=== PATIENT | male | born 1945 | race Caucasian/White ===

== ENCOUNTER 2021-11-20 06:36 | Inpatient (IN) | payer MEDICARE, SELFPAY ==
[2021-11-20] VITALS (53 sets, daily range): BP systolic 98–198; BP diastolic 51–120; PULSE 55–80; RESP 11–32; TEMP 36.9–37.2; O2SAT 85–100; BMI 37.0
--- NOTE | 2021-11-20 06:39 | ED_ITS ---
HPI - Abdominal Pain General: Chief Complaint: Abdominal Pain Stated Complaint: abd pain Time Seen by Provider: 11/20/21 06:38 History of Present Illness: Mr. Lowe is a 75-year-old gentleman without significant past medical Struve presents to the [facility] from due to abdominal discomfort. He has noticed abdominal distention for severe time however this has been worse over the past month. Additionally he had more pain since yesterday. Aching and cramping in quality. He does not associated nausea, vomiting, or diarrhea. Occasionally has some epigastric burning. He has had some urinary leaking which he has never had before. No low back pain, night sweats, saddle anesthesia, or loss of control of bowel. Overall course of symptoms has persisted. Intensity is moderate to severe. He does note high blood pressure than normal with no history of hypertension. No other specific changes in health, exacerbating, or alleviating factors identified. Onset (ago): day(s) Pain Consistency: constant Severity: moderate Quality: cramping and aching Associated Symptoms: Reports bloating Review of Systems General: Reports: 10 or more systems reviewed and unremarkable except in HPI and below GI: Reports: bloating [facility] ED PFSH: Medical History Hypertension Urinary retention Surgical History No significant past surgical history Social History Smoking and tobacco status: never smoked Physical Exam Const: COMMON NORMALS: alert GENERAL APPEARANCE: cooperative and well developed HENMT: COMMON NORMALS: normocephalic and atraumatic HEAD & SCALP: normocep halic and atraumatic Eye: COMMON NORMALS: conjunctivae normal CONJUNCTIVA: Yes conjunctivae normal SCLERA: sclerae normal Neck/C-Spine: COMMON NORMALS: supple GENERAL: Yes trachea midline Resp: COMMON NORMALS: normal respiratory effort and clear to auscultation bilaterally EFFORT & INSPECTION: Yes able to speak in complete sentences AUSCULTATION: clear to auscultation bilaterally Cardio: COMMON NORMALS: regular rate and regular rhythm RATE: regular rate RHYTHM: regular rhythm GI: COMMON NORMALS: Soft to palpation PALPATION: Yes Soft to palpation, Yes Tenderness to palpation present (GI), No Guarding due to palpation present (GI) and No Rigid due to palpation PERCUSSION: normal to percussion Extremity: GENERAL: Yes normal exam except as noted and No edema Neuro: COMMON NORMALS: moves all extremities SENSORIUM/ORIENTATION: Yes alert and No Orientation impaired Psych: COMMON NORMALS: mental status grossly normal and Normal thought process present THOUGHT PROCESS: Normal thought process present Course ED course: - Patient was seen and evaluated by me at bedside - Patient placed on cardiac monitors, IV access obtained - Initial evaluation notable for exam as above. Protuberant abdomen especially in the lower portion, some tenderness without evidence of peritonitis. - Labs personally interpreted by me - Analgesia ordered - Labs notable for mild leukocytosis, normocytic anemia. Metabolic panel notable for significant hyponatremia as well as elevated creatinine. No r eported history of similar. - Imaging notable for significant bladder distention with enlarged prostate. Additionally there is hydronephrosis. - Upon serial reexamination after treatment the patient was similar. Canela catheter placed with instruction to staff registered nurse to clamp after 1 L out with plan to cautiously treat bladder given likely longstanding etiology and theoretical risk of postobstructive diuresis - Based on patient history, evaluation, and testing as interpreted the most likely cause of the patient's condition is lateral obstruction with marked retention leading to renal dysfunction including hyponatremia and elevated creatinine with unclear baseline - The results of ED evaluation were discussed with the patient including plan for admission due to requirement for level of care not available if discharged to prevent significant worsening/deterioration. - Admitting service was contacted and Dr Gutierrez with the hospitalist service agreed to admit the patient - Patient was admitted without further deterioration or significant events. Note: Click bubbles or prepopulated valles in note writing are used for assistance with data collection and billing and are inherently more limited than narrative and other text portions of this note. Please use narrative for additional clini khadra history and defer to narrative/free test for any case of contradictory information. If information appears in only free text or click bubble it should be considered present or absent as reported. Please contact note writer technical publications for clarifications of clinical information or contradictory information. MDM is a brief summary, contradictory or erroneous seeming information should be clarified and full note should be reviewed. Vital Signs: Vital signs: Vital Signs Temperature 98.1 F 11/24/21 15:12 Pulse Rate 75 11/24/21 15:12 Respiratory Rate 18 11/24/21 15:12 Blood Pressure 156/73 11/24/21 15:12 Pulse Oximetry 95 11/24/21 15:12 MDM - Abdominal Pain Medical Decision Making 75-year-old gentleman with no reported history presenting with abdominal discomfort and generalized malaise. Patient found to have likely significant bladder outlet obstruction of unclear chronicity resulting in renal dysfunction and hyponatremia. Canela catheter placed with cautious drainage of markedly distended bladder. Admitted for evaluation and management. Medical Records I reviewed the patient's medical records. Lab Data I reviewed the patient's lab results. : 11/24/21 04:25 11/24/21 06:10 Labs/Radiology: Radiology Impressions Abdomen/Pelvis CT 11/20/21 07:22 IMPRESSION: 1. Marked bladder distension with mildly accentuated prostate gland size. Correlate for bladder outlet obstruction. 2. Prominent bilateral renal hydronephrosis and diffuse ureterectasis would be most likely etiology secondary to prolonged bladder distension. Other consideration could include a less likely coexistent bilateral distal ureteral obstruction. Consider reimaging with ultrasound following bladder evacuation. 3. Atherosclerosis abdominal aorta. 4. 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 5. Colonic diverticulosis. Chest CT 11/21/21 14:27 IMPRESSION: 1. Fat containing right-sided Bochdalek's hernia, unchanged from the prior CT scan. 2. Multivessel atherosclerotic disease which involves the coronary arteries. Head CT 11/21/21 14:27 IMPRESSION: No acute intracranial abnormality. Pelvis CT 11/22/21 08:45 IMPRESSION: 1. 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 There is no GI tract within this hernia. 2. Inguinal canals are patent bilaterally containing a small amount of fat but no GI tract. 3. Canela catheter is now present in the urinary bladder which is nondistended with bladder wall thickening and air. 4. Continued dilatation of the distal ureters with ureteral wall inflammation. Still cannot exclude obstruction at the UV junctions. Laboratory Results WBC 10.5 10^3/uL (4.0-10.0) H 11/20/21 07:21 RBC 3.58 10^6/uL (4.1-5.3) L 11/20/21 07:21 Hgb 11.0 g/dL (11.7-16.6) L 11/20/21 07:21 Hct 29.6 % (42.0-52.0) L 11/20/21 07:21 MCV 82.7 fl (80-94) 11/20/21 07:21 MCH 30.7 pg (28.0-34.0) 11/20/21 07:21 MCHC 37.2 g/dL (30.0-36.0) H 11/20/21 07:21 RDW 11.3 % (12.1-15.1) L 11/20/21 07:21 Plt Count 461 10^3/cmm (130-400) H 11/20/21 07:21 MPV 9.2 fL (7.4-10.4) 11/20/21 07:21 Neut % (Auto) 79.5 % 11/20/21 07:21 Lymph % (Auto) 12.6 % 11/20/21 07:21 [place] % (Auto) 6.2 % 11/20/21 07:21 Eos % (Auto) 0.8 % 11/20/21 07:21 Baso % (Auto) 0.2 % 11/20/21 07:21 Neut # (Auto) 8.36 10^3/uL (1.8-7.7) H 11/20/21 07:21 Lymph # (Auto) 1.3 10^3/uL (0.8-4.8) 11/20/21 07:21 [place] # (Auto) 0.7 10^3/uL (0.2-0.9) 11/20/21 07:21 Eos # (Auto) 0.1 10^3/uL (0.0-0.8) 11/20/21 07:21 Baso # (Auto) 0.0 10^3/uL (0.0-0.1) 11/20/21 07:21 Nucleated RBC % (auto) 0 % 11/20/21 07:21 Nucleated RBCs # 0.0 /100WBC 11/20/21 07:21 Sodium 114 mmol/L (136-145) L* 11/20/21 07:21 Potassium 3.4 mmol/L (3.5-5.1) L 11/20/21 07:21 Chloride 76 mmol/L (98-107) L 11/20/21 07:21 Carbon Dioxide 21 mmol/L (22-29) L 11/20/21 07:21 Anion Gap 20.4 (5-19) H 11/20/21 07:21 BUN 24 mg/dL (8-23) H 11/20/21 07:21 Creatinine 3.2 mg/dL (0.7-1.2) H 11/20/21 07:21 GFR Calculation Not Reportable 11/20/21 07:21 Glucose 135 mg/dL (65-115) H 11/20/21 07:21 Calculated Osmolality 244 mOsm/kg (285-295) L 11/20/21 07:21 Calcium 10.7 mg/dL (8.5-10.5) H 11/20/21 07:21 Phosphorus 4.6 mg/dL (2.5-4.5) H 11/20/21 07:21 Magnesium 2.0 mg/dL (1.7-2.3) 11/20/21 07:21 Total Bilirubin 0.5 mg/dL (0.15-1.2) 11/20/21 07:21 AST 15 U/L (0-40) 11/20/21 07:21 ALT 12 U/L (0-41) 11/20/21 07:21 Alkaline Phosphatase 77 IU/L (40-130) 11/20/21 07:21 Total Protein 7.1 g/dL (6.6-8.7) 11/20/21 07:21 Albumin 4.3 g/dL (3.5-5.2) 11/20/21 07:21 Globulin 2.8 g/dL (1.3-4.6) 11/20/21 07:21 Lipase 15 U/L (13-60) 11/20/21 07:21 Urine Color Yellow (Yellow) 11/20/21 10:10 Urine Appearance Clear (CLEAR) 11/20/21 10:10 Urine pH 7 (5-7) 11/20/21 10:10 Ur Specific [place] 1.005 (1.005-1.030) 11/20/21 10:10 Urine Protein Neg (Negative) 11/20/21 10:10 Urine Glucose (UA) Norm (Normal) 11/20/21 10:10 Urine Ketones Negative (Negative) 11/20/21 10:10 Urine Blood 2+ (Negative) H 11/20/21 10:10 Urine Nitrate Negative (Negative) 11/20/21 10:10 Urine Bilirubin Neg (Negative) 11/20/21 10:10 Urine Urobilinogen Norm mg/dL (Negative) 11/20/21 10:10 Ur Leukocyte Esterase 2+ (Negative) H 11/20/21 10:10 Urine RBC 0-4 /hpf (0-2) H 11/20/21 10:10 Urine WBC 5-10 /hpf (0-5) H 11/20/21 10:10 Ur Squamous Epith Cells 0-4 /hpf (0-5) H 11/20/21 10:10 Amorphous Sediment Not Reportable 11/20/21 10:10 Urine Bacteria 2+ /hpf (NONE) H 11/20/21 10:10 Critical Care Time Critical Care Time: Critical Care Time: Yes Total Critical Care Time: 35 Attestation: Due to a high probability of clinically significant, possibly life threatening deterioration, the patient required my highest level of attention and preparedness to intervene emergently and I personally spent this critical care time directly and personally managing the patient. This critical care time included obtaining a history; examining the patient; pulse oximetry; ordering and review of laboratory and imaging studies; arranging urgent treatment with development of a management plan; evaluation of patient's response to treatment; frequent reassessment; and, discussions with other providers as applicable. It was exclusive of separately billable procedures. 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
--- NOTE | 2021-11-20 07:22 | CTR_ITS ---
PROCEDURE INFORMATION: Exam: CT Abdomen And Pelvis Without Contrast Exam date and time: 11/20/2021 8:42 AM Age: 75 years old Clinical indication: Abdominal pain; Generalized; Additional info: Abd pain, n/v/urinary pain TECHNIQUE: Imaging protocol: Computed tomography of the abdomen and pelvis without contrast. Radiation optimization: All CT scans at this facility use at least one of these dose optimization techniques: automated exposure control; mA and/or kV adjustment per patient size (includes targeted exams where dose is matched to clinical indication); or iterative reconstruction. COMPARISON: No relevant prior studies available. RADIATION DOSE METRICS: Total DLP (mGy-cm): 1779.48 FINDINGS: Lungs: Minor linear stranding scarring or atelectasis lower lungs. Heart: Atherosclerotic calcification distribution of coronary arteries and proximal ascending aorta. Liver: Normal. No mass. Gallbladder and bile ducts: Normal. No calcified stones. No ductal dilation. Pancreas: Partial fatty replaced pancreatic parenchyma. Spleen: Normal. No splenomegaly. Granulomatous calcifications within the spleen. Adrenal glands: Normal. No mass. Kidneys and ureters: Marked bilateral renal hydronephrosis and ureterectasis diffusely to a level near the urinary bladder which could be on the basis of profound bladder distension versus coexistent distal ureteral obstruction bilaterally which is a less likely consideration. Stomach and bowel: Moderate colonic fecal debris. Colonic diverticulosis. Appendix: No evidence of appendicitis. Intraperitoneal space: Posterior right diaphragmatic defect with herniation of fatty omentum into the lower posterior right chest. Vasculature: Atherosclerotic calcification abdominal aorta. Lymph nodes: Unremarkable. No enlarged lymph nodes. Urinary bladder: Marked bladder distension with bladder diameter 23.2 by by 22.0 by 22.5 cm. Findings suggest bladder outlet obstruction. Reproductive: Questionable defect at the superior prostate gland. Correlate clinically for any prior intra prostate surgical change. Mildly prominent prostate gland size. Bones/joints: Degenerative change of the spine. Multilevel degenerative vacuum disc. Hardware right hip. Soft tissues: Bilateral inguinal hernias containing fatty omentum. CT/CT abdomen pelvis wo con [id number] IMPRESSION: 1. Marked bladder distension with mildly accentuated prostate gland size. Correlate for bladder outlet obstruction. 2. Prominent bilateral renal hydronephrosis and diffuse ureterectasis would be most likely etiology secondary to prolonged bladder distension. Other consideration could include a less likely coexistent bilateral distal ureteral obstruction. Consider reimaging with ultrasound following bladder evacuation. 3. Atherosclerosis abdominal aorta. 4. 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 5. Colonic diverticulosis.
--- NOTE | 2021-11-20 07:22 | ECG_ITS ---
[facility] Test Date: 2021-11-20 Pat Name: Neil Lowe Department: Room: Gender: Male Dolly Operator: : 1945 Requested By: Herbert Rosales Order Number: [id number] Prieto MD: Santiago Mcqueen M.D. Measurements Intervals [place] Rate: 58 P: 5 NC: 191 QRS: -47 QRSD: 198 T: 57 QT: 499 QTc: 493 Interpretive Statements SINUS BRADYCARDIA RIGHT BUNDLE BRANCH BLOCK [120+ ms QRS DURATION, UPRIGHT V1, 40+ ms S IN I/aVL/V4/V5/V6] LEFT ANTERIOR FASCICULAR BLOCK [QRS AXIS <= -45, QR IN I, RS IN II] No previous ECG available for comparison Electronically Signed On 11-21-2021 13:29:19 CDT by Santiago Mcqueen M.D. [email or web address]
[2021-11-20 07:25] LABS: Basophils % 0.2 %; Eosinophils # 0.1 10^3/uL (0.0-0.8); Eosinophils % 0.8 %; Hematocrit 29.6 % (42.0-52.0); Lymphocytes # 1.3 10^3/uL (0.8-4.8); Lymphocytes % 12.6 %; Mean Corpuscular HGB Conc 37.2 g/dL (30.0-36.0); Mean Corpuscular Hemoglobin 30.7 pg (28.0-34.0); Mean Corpuscular Volume 82.7 fl (80-94); Mean Platelet Volume 9.2 fL (7.4-10.4); Monocytes # 0.7 10^3/uL (0.2-0.9); Monocytes % 6.2 %; Neutrophils # 8.36 10^3/uL (1.8-7.7); Neutrophils % 79.5 %; Nucleated Red Blood Cells % 0 %; Platelet Count 461 10^3/cmm (130-400); Red Blood Count 3.58 10^6/uL (4.1-5.3); Red Cell Distribution Width 11.3 % (12.1-15.1); White Blood Count 10.5 10^3/uL (4.0-10.0)
[2021-11-20] MEDS: fentaNYL 50 mcg/mL INJ 2mL IVP (07:53)
[2021-11-20 07:57] LABS: Alanine Aminotransferase 12 U/L (0-41); Albumin Level 4.3 g/dL (3.5-5.2); Alkaline Phosphatase 77 IU/L (40-130); Anion Gap 20.4 (5-19); Aspartate Amino Transferase 15 U/L (0-40); Blood Urea Nitrogen 24 mg/dL (8-23); Calcium 10.7 mg/dL (8.5-10.5); Carbon Dioxide 21 mmol/L (22-29); Chloride 76 mmol/L (98-107); Globulin 2.8 g/dL (1.3-4.6); Glucose 135 mg/dL (65-115); Lipase 15 U/L (13-60); Osmolality Calculated 244 mOsm/kg (285-295); Potassium 3.4 mmol/L (3.5-5.1); Total Bilirubin 0.5 mg/dL (0.15-1.2); Total Protein 7.1 g/dL (6.6-8.7)
[2021-11-20 08:11] LABS: Sodium 114 mmol/L (136-145)
--- NOTE | 2021-11-20 08:12 | PC.NURSE ---
PHYSICIAN NOTIFIED OF CRITICAL LAB VALUE SODIUM 114. NO VERBAL ORDERS GIVEN AT THIS TIME.
[2021-11-20 10:50] LABS: Bilirubin Urine Neg (Negative); Blood Urine 2+ (Negative); Glucose Urine UA Norm (Normal); Ketones Urine Negative (Negative); Nitrate Urine Negative (Negative); Protein Urine Neg (Negative); Specific Gravity, Urine 1.005 (1.005-1.030); Urine Appearance Clear (CLEAR); Urine Color Yellow (Yellow); Urobilinogen Urine Norm (Negative); pH Urine 7 (5-7)
[2021-11-20 10:51] LABS: Add Urine Culture? Yes; Add Urine Microscopic? YES; Bacteria Urine 2+ /hpf; Leukocyte Esterase Urine 2+ (Negative); RBC Urine 0-4 /hpf (0-2); Squamous Epithelial Cell Urine 0-4 /hpf (0-5)
--- NOTE | 2021-11-20 11:43 | P.HP_ITS ---
Providers/Chief Complaint Admitting Physician: Dona Gutierrez MD Chief Complaint: abd pain History of Present Illness Neil Lowe is a 75 year old male with no significant past medical history presented to the hospital today with complaint of abdominal pain. He states about a month ago he has had progressively increasing difficulty with urination. Overnight he also experiencing urinary incontinence. At one point he also had burning pain in his epigastric region. The night before yesterday he also experienced chills. He says he has been worsening every day. He is also had a lot of belching. Otherwise does not complain of anything else. He also states that since Monday he has been constipated. He has not had a bowel movement. Normally he goes every day and has no issues. He has not seen a doctor in over 35 years but did see someone at an urgent clinic few years ago for an ear infection. He has no labs or checkups done in the recent past. Surgical history positive for congenital hip defect repair, knee surgery for leg length discrepancy. Unable to provide more details. Past medical history none Family history: Noncontributory Social history: Former smoker, quit 44 years ago, no alcohol or illicit drug use ER: On arrival significant labs hyponatremia 114, hypokalemia, WBC elevated 10.5, hemoglobin 11, urinalysis positive for leukocyte esterase and blood. CT abdomen pelvis done which showed marked bladder distention with mildly extenuated prostate gland size, prominent bilateral renal hydronephrosis and diffuse ureterectasis with the most likely etiology secondary to prolonged bladder distention posterior right diaphragmatic defect with herniation of fatty abdominal mesenteric contents, colonic diverticulosis. Matos catheter was placed and immediately 1 L was removed. Matos was then clamped and hospitalist was called for admission. Medications/Allergies Home Medications Medication Instructions Recorded Confirmed Last Taken Type naproxen sodium 220 mg tablet 220 mg PO Q12H PRN 11/20/21 11/20/21 Unknown History (Aleve) Allergies Allergy/AdvReac Type Severity Reaction Status Date / Time ketorolac [From Toradol] Allergy Intermediate ADR-Vomitin Verified 11/20/21 10:38 g Vitals/I&O/Wt Last Vital Signs Temp 98.5 F 11/20/21 06:57 Pulse 55 L 11/20/21 11:31 Resp 16 11/20/21 11:31 BP 168/78 11/20/21 11:31 Pulse Ox 98 06/25/22 11:31 Weight last 48 hrs Weight 127.459 kg Physical Exam Narrative: General: Alert oriented x3, patient seen sitting in bed appearing somewhat uncomfortable, Says we should unclamp matos and he has abdominal discomfort HEENT: Normocephalic, atraumatic, EOMI, breathing normally on room air Cardio: Regular rate rhythm, normal S1-S2, no murmurs Respiratory: Good bilateral air entry, no wheezes no rhonchi appreciated GI: Abdomen soft, mildly tender to palpation in pelvic region, non distended otherwise bowel sounds + Behavior: Appropriate and cooperative Extremities:Trace b/l LE edema, no cyanosis Urinary Catheter Management: Matos: Cath Placed During This Visit: yes Urinary Catheter Date of Insertion: 11/20/21 Urinary Catheter Time of Insertion: 10:28 Data : 11/21/21 10:10 11/21/21 13:03 A&P Assessment and plan (1) Bladder outflow obstruction: Status: Acute (2) SARAH (acute kidney injury): Status: Acute (3) Hyponatremia: Status: Acute (4) Hyperphosphatemia: Status: Acute (5) Anemia: Status: Acute (6) Hypertension: Status: Acute (7) High anion gap metabolic acidosis: Status: Acute (8) Leukocytosis: Status: Acute (9) Bilateral hydronephrosis: Status: Acute (10) Bladder distention: Status: Acute Plan #Bilateral renal hydronephrosis #Bladder outlet obstruction #Hyponatremia #Acute kidney injury, baseline unknown #Anemia #Leukocytosis #UTI #Hypertension #Hypokalemia #Anion gap metabolic acidosis most likely secondary to renal insult #Hyperphosphatemia - Start NS 50 cc/hr. COrrect Na slowly. NO more than 6-8 /24 hour period - Intermittent matos to avoid rapid diuresis - Check urine sodium, urine/serum osmo, urine creatinine, serum phosphorus - CT abd shows b/l hydronephrosis with bladder distention with suscpision of bladder outlet obstruction - start hydralazine 50 TID. HTN most likely 2/2 to pain and distress. No prior diagnosis but has also not seen a doc in years. - check hba1c, lipid profile - check ucx - continue zosyn to cover for UTI. - COnsult urology on Monday as Dr. Ward off over weekend - Consult nephrology. - Check iron studies to workup anemia - Replete potassium Full Code at bedside updated. Continue care in ICU DVT PPX: heparin subc Attestations Medical Necessity Statement*: Requires ICU level care for management of above. Expected to cross > 2 midnight stay. Coding Level of Care Code Acute Alterations Workroom Clerk for Chg Fwd Diagnoses Bladder outflow obstruction N32.0 SARAH (acute kidney injury) N17.9 Hyponatremia E87.1 Hyperphosphatemia E83.39 Anemia D64.9 Hypertension I10 High anion gap metabolic acidosis E87.2 Leukocytosis D72.829 Bilateral hydronephrosis N13.30 Bladder distention N32.89
[2021-11-20 12:06] LABS: Phosphorus 4.6 mg/dL (2.5-4.5)
[2021-11-20] MEDS: sodium chloride 0.9% 1,000 ML 50 ML IV (12:43)
[2021-11-20] MEDS: heparin 5,000 unit/mL INJ 1 mL 5000 UNIT SUBCUT ×2 (12:43→23:08)
--- NOTE | 2021-11-20 15:08 | P.CONIM_ITS ---
Providers/Reason For Consult Consulting Physician/Specialty*: Nephro Reason for Consult*: HypoNa and SARAH Attending Physician: Dnoa Gutierrez MD History of Present Illness History of Present Illness Thank for consultation, today had the pleasure of reviewing this very pleasant 75 old gentleman for evaluation of hyponatremia and acute kidney injury. He last saw Roughly 10 years ago, at which time he had wax in his right ear. No exposure to medical services since then. No historic labs on him. He happens to know Dr. Ward as Dr. Ward was the physician for his father. Over the last few months he has had progressively increasing difficulty with his urination. Last night he had 2 episodes of urinary incontinence. He passes urine roughly every hour with a weak stream. He did notice that his urine was odiferous and somewhat uncomfortable as well. On arrival he was found to have a serum creatinine of 3.2 and serum sodium 114. CT scan of the abdomen pelvis demonstrated severe bilateral hydronephrosis and a distended bladder. Canela catheter is now replaced, although it was initially murky, it is now clear. No overt hematuria. No known history of acute or chronic kidney disease, is never seen a kidney spe cialist or received hemodialysis. No history of an enlarged prostate and no history of urological procedures either. No history of hyponatremia, he still drinks normally although has been off his food lately. No history of heart disease, liver disease etc. Medications/Allergies Home Medications Medication Instructions Recorded Confirmed Last Taken Type naproxen sodium 220 mg tablet 220 mg PO Q12H PRN 11/20/21 11/20/21 Unknown History (Aleve) Allergies Allergy/AdvReac Type Severity Reaction Status Date / Time ketorolac [From Toradol] Allergy Intermediate ADR-Vomitin Verified 11/20/21 10:38 g Current Medications Generic Name Dose Route Start Last Admin Trade Name Freq PRN Reason Stop Dose Admin Heparin Sodium (Porcine) 5,000 unit 11/20/21 11:45 11/20/21 12:43 Heparin 5,000 Unit/Ml Inj 1 Ml SUBCUT 5,000 unit Q12H RAZA Administration Sodium Chloride 1,000 mls @ 50 mls/hr 11/20/21 11:30 11/20/21 12:43 Sodium Chloride 0.9% IV 50 mls/hr .Q20H RAZA Administration Vitals/I&O/Wt Last Vital Signs Temp 98.5 F 11/20/21 06:57 Pulse 57 L 11/20/21 12:25 Resp 30 H 11/20/21 12:25 BP 180/86 11/20/21 12:25 Pulse Ox 98 11/20/21 12:25 11/20/21 11/20/21 11/20/21 06:59 14:59 22:59 Output Total 2500 / 2500 Balance -2500 / -2500 Weight last 48 hrs Weight 127.459 kg Weight 127.459 kg Physical Exam Narrative: Constitutional: Awake, comfortable HEENT: Wet mucosa, no jvp, non icteric Lungs: Bilaterally clear without discernible wheeze or rales in all lung zones CVS: S1 S2, no murmurs Abdo: Soft, BS ok Ext 4: Minimal edema, peripheral perfusion with no cyanosis Neurological: Grossly non-focal Urinary Catheter Management: Canela: Cath Placed During This Visit: yes Urinary Catheter Date of Insertion: 11/20/21 Urinary Catheter Time of Insertion: 10:28 Data : 11/20/21 07:21 11/20/21 07:21 A&P Assessment and plan (1) SARAH (acute kidney injury): Status: Acute (2) Hyponatremia: Status: Acute (3) Bladder outflow obstruction: Status: Acute Plan 1. Acute kidney injury No diagnostic dilemma here, this is almost certainly secondary to acute obstructive uropathy. Stat BMP pending, as long as renal function is improving, no further work-up is required. Strict I's and O's Dose medication for GFR less than 15 Avoid usual nephrotoxic agents. 2. Hyponatremia and other aberrant chemistry Clinically euvolemic Likely secondary to renal failure Now that he is on blocked, with a robust urine output with what appears to be a auto diuresis it is likely he will correct quickly. Stat BMP pending Currently on gentle IV fluids Goal increase will be no more than 6 mmol/L in 24 hours i.e. roughly 120 at 7 AM tomorrow morning Will do sodium levels every 3-4 hours As long as sodium levels continue to improve no other diagnostic testing is required as there is no question of the diagnosis here. Low K, defer replacement until stat labs are available for review HyperCa, high intake of TUMs in addition to SARAH, monitor for now Mild acidosis, monitor for now 3. Obstructive uropathy Likely secondary to enlarged prostate Will get PSA Urology evaluation from Dr. Ward pending on Monday. Canela catheter in Defer definitive management to Dr. Ward. 4. Hypertension New diagnosis, he was unaware of any prior history of hypertension. Will give oral hydralazine 50 mg p.o. 3 times daily As his renal function improves and he continues to pee out a significant amount of salt or water is likely his blood pressure will come down as well. Close monitoring of hemodynamics Thank you for consultation, it is a pleasure to follow these cases with you Exam and interview performed with aid of bedside RN using telemedicine Time spent 20 min inc > 50% of time in face to face counseling Glynn Cheung MD [facility] [phone] Coding Level of Care Code Acute Retail Salesworker for Chg Fwd Diagnoses SARAH (acute kidney injury) N17.9 Hyponatremia E87.1 Bladder outflow obstruction N32.0
[2021-11-20 16:00] LABS: Blood Urea Nitrogen 24 mg/dL (8-23); Calcium 10.1 mg/dL (8.5-10.5); Carbon Dioxide 24 mmol/L (22-29); Chloride 77 mmol/L (98-107); Glucose 119 mg/dL (65-115); Osmolality Calculated 245 mOsm/kg (285-295)
[2021-11-20] MEDS: cefTRIAXone 1,000 MG in sodium chloride 0.9% (plus) 50 ML 100 MG IV (16:18)
[2021-11-20] MEDS: hyDRALAzine 50 mg Tablet PO ×2 (16:19→23:09)
[2021-11-20 16:26] LABS: Sodium 115 mmol/L (136-145)
[2021-11-20 16:27] LABS: Anion Gap 17.5 (5-19); Potassium 3.5 mmol/L (3.5-5.1)
[2021-11-20 20:31] LABS: Anion Gap 14.5 (5-19); Blood Urea Nitrogen 25 mg/dL (8-23); Calcium 9.6 mg/dL (8.5-10.5); Carbon Dioxide 24 mmol/L (22-29); Chloride 78 mmol/L (98-107); Glucose 111 mg/dL (65-115); Osmolality Calculated 241 mOsm/kg (285-295); Potassium 3.5 mmol/L (3.5-5.1)
[2021-11-20 20:44] LABS: Sodium 113 mmol/L (136-145)
[2021-11-21] VITALS (73 sets, daily range): BP systolic 90–161; BP diastolic 50–106; PULSE 48–96; RESP 9–33; TEMP 36.4; O2SAT 78–100
[2021-11-21 00:50] LABS: Anion Gap 16.2 (5-19); Blood Urea Nitrogen 26 mg/dL (8-23); Calcium 9.2 mg/dL (8.5-10.5); Carbon Dioxide 24 mmol/L (22-29); Chloride 77 mmol/L (98-107); Glucose 105 mg/dL (65-115); Osmolality Calculated 243 mOsm/kg (285-295); Potassium 3.2 mmol/L (3.5-5.1)
[2021-11-21 01:02] LABS: Sodium 114 mmol/L (136-145)
[2021-11-21 06:21] LABS: Alanine Aminotransferase 11 U/L (0-41); Albumin Level 3.7 g/dL (3.5-5.2); Alkaline Phosphatase 69 IU/L (40-130); Anion Gap 15.2 (5-19); Aspartate Amino Transferase 16 U/L (0-40); Blood Urea Nitrogen 25 mg/dL (8-23); Calcium 8.5 mg/dL (8.5-10.5); Carbon Dioxide 23 mmol/L (22-29); Chloride 78 mmol/L (98-107); Globulin 2.1 g/dL (1.3-4.6); Glucose 117 mg/dL (65-115); Osmolality Calculated 241 mOsm/kg (285-295); Potassium 3.2 mmol/L (3.5-5.1); Total Bilirubin 0.3 mg/dL (0.15-1.2); Total Protein 5.8 g/dL (6.6-8.7)
[2021-11-21 06:30] LABS: Sodium 113 mmol/L (136-145)
--- NOTE | 2021-11-21 06:40 | PC.NURSE ---
New Orders Received Spoke with Dr. Sterling regarding patient labs. Received telephone orders to increase NS to rate of 125 mls/hr from previous 50 mls/hr.
--- NOTE | 2021-11-21 07:00 | PC.NURSE ---
Shift Summary Patient had an uneventful shift he remains alert/oriented x4, on room air, no wounds or skin issues noted at this time. IVF are infusing per protocol, please see MAR for infusion rate. Canela catheter drained 2500 mls of urine overnight.
[2021-11-21 07:39] LABS: Urine Creatinine 29 mg/dL (39-259)
[2021-11-21 07:44] LABS: Urine Random Sodium 17 mmol/L
[2021-11-21] MEDS: sodium chloride 0.9% 1,000 ML 125 ML IV (07:52)
[2021-11-21] MEDS: hyDRALAzine 50 mg Tablet PO ×3 (08:07→20:17)
--- NOTE | 2021-11-21 08:24 | PM.PN ---
Subjective Subjective: feels better. drinking a lot of fluids. has edema. large diuresis. no valencia, n/v/f/c/valencia/d. Medications: Reviewed: Yes Medication Review Details: Current Medications Heparin Sodium (Porcine) (Heparin 5,000 Unit/Ml Inj 1 Ml) 5,000 unit SUBCUT Q12H [facility] Last Admin: 11/20/21 23:08 Dose: 5,000 unit Documented by: Hydralazine HCl (Hydralazine 50 Mg Tablet) 50 mg PO TID [facility] Last Admin: 11/21/21 08:07 Dose: 50 mg Documented by: Ceftriaxone Sodium 1,000 mg/ (Sodium Chloride) 50 mls @ 100 mls/hr IV Q24H [facility]; Protocol Sodium Chloride (Sodium Chloride 0.9%) 1,000 mls @ 125 mls/hr IV .Q8H [facility] Last Admin: 11/21/21 07:52 Dose: 125 mls/hr Documented by: Ondansetron HCl (Ondansetron 2 Mg/Ml Sdv 2 Ml) 4 mg IVP Q6H PRN PRN Reason: NAUSEA AND VOMITING Vitals/I&O/Wt Last Vital Signs Temp 97.6 F 11/21/21 04:00 Pulse 66 11/21/21 08:00 Resp 15 11/21/21 08:00 BP 161/106 11/21/21 08:00 Pulse Ox 96 11/21/21 08:00 11/20/21 11/21/21 11/21/21 22:59 06:59 14:59 Intake Total 1010 / 1010 3440 / 4450 480 / 480 Output Total 1250 / 3750 2500 / 6250 Balance -240 / -2740 940 / -1800 480 / 480 Weight last 48 hrs Weight 127.459 kg Weight 127.459 kg Physical Exam Narrative: comfortable sitting up, NARD vs noted- bp elevated heent- nc/at, eomi, anicteric neck supple lungs clear heart reg, no rub abd soft, nt, nd, + bs + matos ext 2+ edema neuro- a,a, o x 3 Urinary Catheter Management: Matos: Cath Placed During This Visit: yes Reason for Continuing Indwelling Catheter: Accurate Measurement of Urinary Output in Critically Ill Patients Urinary Catheter Date of Insertion: 11/20/21 Urinary Catheter Time of Insertion: 10:28 Data : 11/20/21 07:21 11/21/21 04:38 Micro: Microbiology 11/20/21 10:10 Urine Culture - Preliminary Urine,Clean Catch 11/20/21 15:00 Blood Culture - Preliminary Blood SPECIMEN COLLECTED 11/20/21 15:09 Blood Culture - Preliminary Blood SPECIMEN COLLECTED A&P Assessment and plan (1) SARAH (acute kidney injury): 75 yr old man 1. SARAH- from b/l hydronephrosis- likely was chtonic- will see how much renal recovery he will have -please have urology see pt -ua w/ 2+ blood -ct scan-Kidneys and ureters: Marked bilateral renal hydronephrosis and ureterectasis diffusely to a level near the urinary bladder which could be on the basis of profound bladder distension versus coexistent distal ureteral obstruction bilaterally which is a less likely consideration. 2. hyponatremia- from obstruction and high water intake. ur na ia 17- rec ns and free water restriction -monitor chem 7 , mag every 6 hrs 3. htn- add norvasc 2.5 mg po daily 4. hypokalemia - replete k and mag by po seen and examined w/ [facility]- telehealth visit time spent 30 min Status: Acute Plan see above Attestations Medical Necessity Statement*: severe electrolyte abnormalities Time Spent in Patient Care: 16 - 35 minutes (>than 50% of time spent in counselling and/or direct pt care on unit). Coding Level of Care Code Acute Architectural Wood Model Maker for Titus Parra Diagnoses SARAH (acute kidney injury) N17.9
[2021-11-21] MEDS: potassium chloride ER 20 mEq Tablet 40 MEQ PO ×3 (08:49→14:36)
[2021-11-21] MEDS: amlodipine 5 mg Tablet 2.5 MG PO (08:49)
[2021-11-21 09:03] LABS: Anion Gap 17.4 (5-19); Blood Urea Nitrogen 25 mg/dL (8-23); Calcium 8.7 mg/dL (8.5-10.5); Carbon Dioxide 23 mmol/L (22-29); Chloride 76 mmol/L (98-107); Glucose 111 mg/dL (65-115); Osmolality Calculated 241 mOsm/kg (285-295); Potassium 3.4 mmol/L (3.5-5.1)
[2021-11-21 09:16] LABS: Sodium 113 mmol/L (136-145)
[2021-11-21 10:18] LABS: Basophils % 0.2 %; Eosinophils # 0.1 10^3/uL (0.0-0.8); Eosinophils % 0.8 %; Hematocrit 26.2 % (42.0-52.0); Hemoglobin 9.7 g/dL (11.7-16.6); Lymphocytes # 1.4 10^3/uL (0.8-4.8); Lymphocytes % 12.5 %; Mean Corpuscular Hemoglobin 30.6 pg (28.0-34.0); Mean Corpuscular Volume 82.6 fl (80-94); Mean Platelet Volume 9.1 fL (7.4-10.4); Monocytes # 0.7 10^3/uL (0.2-0.9); Monocytes % 6.3 %; Neutrophils # 8.69 10^3/uL (1.8-7.7); Neutrophils % 79.7 %; Nucleated Red Blood Cells % 0 %; Platelet Count 370 10^3/cmm (130-400); Red Blood Count 3.17 10^6/uL (4.1-5.3); Red Cell Distribution Width 11.4 % (12.1-15.1); White Blood Count 10.9 10^3/uL (4.0-10.0)
[2021-11-21] MEDS: heparin 5,000 unit/mL INJ 1 mL 5000 UNIT SUBCUT (11:39)
[2021-11-21 13:48] LABS: Alanine Aminotransferase 10 U/L (0-41); Albumin Level 3.6 g/dL (3.5-5.2); Alkaline Phosphatase 71 IU/L (40-130); Anion Gap 18.1 (5-19); Aspartate Amino Transferase 15 U/L (0-40); Blood Urea Nitrogen 23 mg/dL (8-23); Calcium 8.2 mg/dL (8.5-10.5); Carbon Dioxide 20 mmol/L (22-29); Chloride 78 mmol/L (98-107); Globulin 2.6 g/dL (1.3-4.6); Glucose 127 mg/dL (65-115); Magnesium 1.7 mg/dL (1.7-2.3); Osmolality Calculated 241 mOsm/kg (285-295); Phosphorus 3.4 mg/dL (2.5-4.5); Potassium 3.1 mmol/L (3.5-5.1); Total Bilirubin 0.3 mg/dL (0.15-1.2); Total Protein 6.2 g/dL (6.6-8.7)
[2021-11-21 13:54] LABS: Sodium 113 mmol/L (136-145)
--- NOTE | 2021-11-21 14:23 | P.PN_ITS ---
Subjective Subjective: Seen this AM. 7L removed via matos total 2.5L overnight BP better Na still 113. Awaiting urology consult in AM Vitals/I&O/Wt Last Vital Signs Temp 97.6 F 11/21/21 04:00 Pulse 60 11/21/21 14:00 Resp 21 H 11/21/21 14:00 BP 133/68 11/21/21 12:00 Pulse Ox 96 11/21/21 12:00 11/20/21 11/21/21 11/21/21 22:59 06:59 14:59 Intake Total 1010 / 1010 3440 / 4450 1012 / 1012 Output Total 1250 / 3750 2500 / 6250 1825 / 1825 Balance -240 / -2740 940 / -1800 -813 / -813 Weight last 48 hrs Weight 127.459 kg Weight 127.459 kg Physical Exam Narrative: General: Alert oriented x3, patient seen sitting in recliner feeling better HEENT: Normocephalic, atraumatic, EOMI, breathing normally on room air Cardio: Regular rate rhythm, normal S1-S2, no murmurs Respiratory: Good bilateral air entry, no wheezes no rhonchi appreciated GI: Abdomen soft, non tender, non distended Behavior: Appropriate and cooperative Extremities:Trace b/l LE edema, no cyanosis Urinary Catheter Management: Matos: Cath Placed During This Visit: yes Reason for Continuing Indwelling Catheter: Accurate Measurement of Urinary Output in Critically Ill Patients Urinary Catheter Date of Insertion: 11/20/21 Urinary Catheter Time of Insertion: 10:28 Data : 11/21/21 10:10 11/21/21 13:03 Micro: Microbiology 11/20/21 10:10 Urine Culture - Preliminary Urine,Clean Catch 11/20/21 15:00 Blood Culture - Preliminary Blood SPECIMEN COLLECTED 11/20/21 15:09 Blood Culture - Preliminary Blood SPECIMEN COLLECTED A&P Assessment and plan (1) Bladder distention: Status: Acute (2) Bilateral hydronephrosis: Status: Acute (3) Leukocytosis: Status: Acute (4) High anion gap metabolic acidosis: Status: Acute (5) Hypertension: Status: Acute (6) Anemia: Status: Acute (7) Hyperphosphatemia: Status: Acute (8) Bladder outflow obstruction: Status: Acute (9) SARAH (acute kidney injury): Status: Acute (10) Hyponatremia: Status: Acute Plan #Bilateral renal hydronephrosis #Bladder outlet obstruction #Hyponatremia #Acute kidney injury, baseline unknown #Anemia #Leukocytosis #UTI #Hypertension #Hypokalemia #Anion gap metabolic acidosis most likely secondary to renal insult #Hyperphosphatemia - Continue on NS 125 cc/hr. COrrect Na slowly. NO more than 6-8 /24 hour period. Nephro following - Intermittent matos to avoid rapid diuresis - Check urine sodium, urine/serum osmo, urine creatinine, serum phosphorus - CT abd shows b/l hydronephrosis with bladder distention with suspicion of bladder outlet obstruction - Continue hydralazine 50 TID. HTN most likely 2/2 to pain and distress. No prior diagnosis but has also not seen a doc in years. - check hba1c, lipid profile - check ucx - continue ceftriaxone to cover for UTI. - COnsult urology on Monday as Dr. Ward off over weekend. Order placed. He needs to be notified in AM - Consult nephrology. - Check iron studies to workup anemia - Replete potassium - Check CT Chest and CT head to r/o intracranial or pulm pathology for hyponatremia. Full Code at bedside updated. Continue care in ICU DVT PPX: heparin subc Attestations Medical Necessity Statement*: Requires ICU level care for management of above. Expected to cross > 2 midnight stay. Coding Level of Care Code Acute Decision Support Analyst for Chg Fwd Diagnoses Bladder distention N32.89 Bilateral hydronephrosis N13.30 Leukocytosis D72.829 High anion gap metabolic acidosis E87.2 Hypertension I10 Anemia D64.9 Hyperphosphatemia E83.39 Bladder outflow obstruction N32.0 SARAH (acute kidney injury) N17.9 Hyponatremia E87.1
--- NOTE | 2021-11-21 14:27 | CTR_ITS ---
PROCEDURE INFORMATION: Exam: CT Head Without Contrast Exam date and time: 11/21/2021 3:41 PM Age: 75 years old Clinical indication: Other: Hyponatremia, R/O intracranial cause TECHNIQUE: Imaging protocol: Computed tomography of the head without contrast. Radiation optimization: All CT scans at this facility use at least one of these dose optimization techniques: automated exposure control; mA and/or kV adjustment per patient size (includes targeted exams where dose is matched to clinical indication); or iterative reconstruction. COMPARISON: No relevant prior studies available. RADIATION DOSE METRICS: Total DLP (mGy-cm): 808.43 FINDINGS: Brain: No hemorrhage. No edema. Mild diffuse cerebral atrophy and sequela of chronic small vessel ischemic disease. No mass effect. Cerebral ventricles: No ventriculomegaly. Paranasal sinuses: Visualized sinuses are unremarkable. No fluid levels. Mastoid air cells: Visualized mastoid air cells are well aerated. Bones/joints: Unremarkable. No acute fracture. Soft tissues: Unremarkable. CT/CT head wo con* [id number] IMPRESSION: No acute intracranial abnormality.
--- NOTE | 2021-11-21 14:27 | CTR_ITS ---
PROCEDURE INFORMATION: Exam: CT Chest Without Contrast; Diagnostic Exam date and time: 11/21/2021 3:44 PM Age: 75 years old Clinical indication: Other: R/O malignancy TECHNIQUE: Imaging protocol: Diagnostic computed tomography of the chest without contrast. Radiation optimization: All CT scans at this facility use at least one of these dose optimization techniques: automated exposure control; mA and/or kV adjustment per patient size (includes targeted exams where dose is matched to clinical indication); or iterative reconstruction. COMPARISON: CT abdomen pelvis wo con [id number] 11/20/2021 8:42 AM RADIATION DOSE METRICS: Total DLP (mGy-cm): 1111.01 FINDINGS: Lungs: There are pulmonary parenchymal calcifications consistent with remote granulomatous organism exposure. Streaky densities at the lung bases are most consistent with scarring and/or atelectasis. Pleural spaces: Unremarkable. No pneumothorax. No pleural effusion. Heart: Multivessel atherosclerotic disease which involves the coronary arteries. Lymph nodes: Unremarkable. No enlarged lymph nodes. Vasculature: Unremarkable. No aortic aneurysm. Pancreas: There is moderate to severe fatty atrophy of the pancreas. Kidneys and ureters: Partially visualized bilateral renal hydronephrosis/hydroureter was seen on the prior CT scan abdomen/pelvis dated 11/20/2021. Please see that report. Bones/joints: There are degenerative changes in the visualized spine. Soft tissues: Fat containing right-sided Bochdalek's hernia is unchanged from the prior exam. CT/CT chest wo con [id number] IMPRESSION: 1. Fat containing right-sided Bochdalek's hernia, unchanged from the prior CT scan. 2. Multivessel atherosclerotic disease which involves the coronary arteries.
[2021-11-21] MEDS: cefTRIAXone 1,000 MG in sodium chloride 0.9% (plus) 50 ML 100 MG IV (14:36)
[2021-11-21] MEDS: sodium chloride 1 gm Tablet PO ×2 (14:36→20:17)
--- NOTE | 2021-11-21 15:20 | ECG_ITS ---
[facility] Test Date: 2021-11-21 Pat Name: Neil Lowe Department: Room: [facility] Gender: Male Bolt Man: : 1945 Requested By: Dona Gutierrez Order Number: [id number] Prieto MD: Santiago Mcqueen M.D. Measurements Intervals [place] Rate: 59 P: 6 ND: 175 QRS: -53 QRSD: 182 T: 33 QT: 493 QTc: 492 Interpretive Statements SINUS BRADYCARDIA RIGHT BUNDLE BRANCH BLOCK [120+ ms QRS DURATION, UPRIGHT V1, 40+ ms S IN I/aVL/V4/V5/V6] LEFT ANTERIOR FASCICULAR BLOCK [QRS AXIS <= -45, QR IN I, RS IN II] Compared to ECG 11/20/2021 07:38:47 No significant changes Electronically Signed On 11-22-2021 17:37:32 CDT by Santiago Mcqueen M.D. [id number]
[2021-11-21] MEDS: sodium chloride 3% 500 ML 50 ML IV (15:52)
[2021-11-21 18:29] LABS: Alanine Aminotransferase 11 U/L (0-41); Alkaline Phosphatase 76 IU/L (40-130); Aspartate Amino Transferase 17 U/L (0-40); Blood Urea Nitrogen 23 mg/dL (8-23); Calcium 8.8 mg/dL (8.5-10.5); Carbon Dioxide 23 mmol/L (22-29); Chloride 81 mmol/L (98-107); Globulin 2.5 g/dL (1.3-4.6); Glucose 120 mg/dL (65-115); Magnesium 1.7 mg/dL (1.7-2.3); Osmolality Calculated 247 mOsm/kg (285-295); Phosphorus 3.4 mg/dL (2.5-4.5); Total Bilirubin 0.3 mg/dL (0.15-1.2); Total Protein 6.5 g/dL (6.6-8.7)
[2021-11-21 18:36] LABS: Sodium 116 mmol/L (136-145)
[2021-11-22] VITALS (39 sets, daily range): BP systolic 86–151; BP diastolic 48–91; PULSE 55–109; RESP 9–31; TEMP 36.1–37.1; O2SAT 95–100
[2021-11-22] MEDS: heparin 5,000 unit/mL INJ 1 mL 5000 UNIT SUBCUT ×2 (00:39→11:05)
[2021-11-22 01:20] LABS: Alanine Aminotransferase 11 U/L (0-41); Alkaline Phosphatase 73 IU/L (40-130); Anion Gap 16.7 (5-19); Aspartate Amino Transferase 16 U/L (0-40); Blood Urea Nitrogen 23 mg/dL (8-23); Calcium 8.7 mg/dL (8.5-10.5); Carbon Dioxide 20 mmol/L (22-29); Chloride 86 mmol/L (98-107); Globulin 2.6 g/dL (1.3-4.6); Glucose 101 mg/dL (65-115); Magnesium 1.8 mg/dL (1.7-2.3); Osmolality Calculated 252 mOsm/kg (285-295); Phosphorus 2.8 mg/dL (2.5-4.5); Potassium 3.7 mmol/L (3.5-5.1); Total Bilirubin 0.3 mg/dL (0.15-1.2); Total Protein 6.6 g/dL (6.6-8.7)
[2021-11-22 01:22] LABS: Troponin T (5th) Once 46 ng/L (0-15)
[2021-11-22 01:25] LABS: Sodium 119 mmol/L (136-145)
--- NOTE | 2021-11-22 01:36 | PC.NURSE ---
New Orders Received Called Dr. Redmond with lab results, received verbal orders to start 1/2 NS at 75 mls/hr.
[2021-11-22] MEDS: acetaminophen 325 mg Tablet 650 MG PO ×3 (01:57→20:09)
[2021-11-22] MEDS: sodium chloride 0.45% 1,000 ML 75 ML IV (01:59)
[2021-11-22 05:55] LABS: Alanine Aminotransferase 9 U/L (0-41); Albumin Level 3.7 g/dL (3.5-5.2); Alkaline Phosphatase 68 IU/L (40-130); Anion Gap 14.1 (5-19); Aspartate Amino Transferase 15 U/L (0-40); Blood Urea Nitrogen 22 mg/dL (8-23); Calcium 8.3 mg/dL (8.5-10.5); Carbon Dioxide 24 mmol/L (22-29); Chloride 88 mmol/L (98-107); Globulin 2.2 g/dL (1.3-4.6); Glucose 128 mg/dL (65-115); Magnesium 1.8 mg/dL (1.7-2.3); Osmolality Calculated 259 mOsm/kg (285-295); Phosphorus 2.9 mg/dL (2.5-4.5); Potassium 4.1 mmol/L (3.5-5.1); Sodium 122 mmol/L (136-145); Total Bilirubin 0.3 mg/dL (0.15-1.2); Total Protein 5.9 g/dL (6.6-8.7)
--- NOTE | 2021-11-22 07:19 | PM.PN ---
Subjective Subjective: feels well. no n/v/f/c/valencia/d/leg pians. Medications: Reviewed: Yes Medication Review Details: Current Medications Acetaminophen (Acetaminophen 325 Mg Tablet) 650 mg PO Q6H PRN PRN Reason: MILD PAIN Last Admin: 11/22/21 01:57 Dose: 650 mg Documented by: Amlodipine Besylate (Amlodipine 5 Mg Tablet) 2.5 mg PO DAILY [facility] Last Admin: 11/21/21 08:49 Dose: 2.5 mg Documented by: Heparin Sodium (Porcine) (Heparin 5,000 Unit/Ml Inj 1 Ml) 5,000 unit SUBCUT Q12H [facility] Last Admin: 11/22/21 00:39 Dose: 5,000 unit Documented by: Hydralazine HCl (Hydralazine 50 Mg Tablet) 50 mg PO TID [facility] Last Admin: 11/21/21 20:17 Dose: 50 mg Documented by: Ceftriaxone Sodium 1,000 mg/ (Sodium Chloride) 50 mls @ 100 mls/hr IV Q24H [facility]; Protocol Last Infusion: 11/21/21 15:06 Dose: Infused Documented by: Sodium Chloride (Sodium Chloride 0.45%) 1,000 mls @ 125 mls/hr IV .Q8H [facility] Last Infusion: 11/22/21 06:55 Dose: 125 mls/hr Documented by: Ondansetron HCl (Ondansetron 2 Mg/Ml Sdv 2 Ml) 4 mg IVP Q6H PRN PRN Reason: NAUSEA AND VOMITING Vitals/I&O/Wt Last Vital Signs Temp 97.0 F L 11/22/21 04:00 Pulse 60 11/22/21 06:30 Resp 20 H 11/22/21 06:30 BP 103/64 11/22/21 06:30 Pulse Ox 99 11/22/21 06:00 11/21/21 11/22/21 11/22/21 22:59 06:59 14:59 Intake Total 426.667 / 3319.917 370 / 3689.917 Output Total 1000 / 2825 1400 / 4225 Balance -573.333 / 494.917 -1030 / -535.083 Weight last 48 hrs Weight 127.459 kg Physical Exam Narrative: comfortable sitting up, NARD vs noted- and stable heent- nc/at, eomi, anicteric neck supple lungs clear heart reg, no rub abd soft, nt, nd, + bs + matos ext 2+ edema neuro- a,a, o x 3 Urinary Catheter Management: Matos: Cath Placed During This Visit: yes Reason for Continuing Indwelling Catheter: Accurate Measurement of Urinary Output in Critically Ill Patients Urinary Catheter Date of Insertion: 11/20/21 Urinary Catheter Time of Insertion: 10:28 Data : 11/21/21 10:10 11/22/21 04:40 Micro: Microbiology 11/20/21 10:10 Urine Culture - Final Urine,Clean Catch 11/20/21 15:00 Blood Culture - Preliminary Blood NEGATIVE TO DATE 11/20/21 15:09 Blood Culture - Preliminary Blood NEGATIVE TO DATE A&P Assessment and plan (1) SARAH (acute kidney injury): 75 yr old man 1. SARAH- from b/l hydronephrosis- likely was chtonic- will see how much renal recovery he will have -please have urology see pt -ua w/ 2+ blood -ct scan-Kidneys and ureters: Marked bilateral renal hydronephrosis and ureterectasis diffusely to a level near the urinary bladder which could be on the basis of profound bladder distension versus coexistent distal ureteral obstruction bilaterally which is a less likely consideration. 2. hyponatremia- from obstruction and high water intake. ur na was 17- rec ns and free water restriction -monitor chem 7 , mag every 6 hrs -pts sodium venita quickly- now on 1/2 ns 3. htn- dec meds 4. hypokalemia - replete k and mag as needed seen and examined w/ RN- telehealth visit time spent 30 min Status: Acute Plan see above Attestations Medical Necessity Statement*: improving hyponatremia SARAH -improved to CKD- stage to be determined Time Spent in Patient Care: 16 - 35 minutes (>than 50% of time spent in counselling and/or direct pt care on unit). Coding Level of Care Code Acute Sports Book Writer for Titus Parra Diagnoses SARAH (acute kidney injury) N17.9
--- NOTE | 2021-11-22 07:39 | PC.NURSE ---
Shift Summary Patient had an uneventful shift. Remains alert/oriented x4, on room air, no wounds noted at this time. Canela catheter drained 1400 mls of urine and patient had two bowel movements overnight. Reported discomfort in the back, shoulders and neck area-PRN Tylenol administered.
[2021-11-22] MEDS: hyDRALAzine 50 mg Tablet PO ×3 (07:59→20:09)
--- NOTE | 2021-11-22 08:45 | CT_ITS ---
WS: [id number] CT PELVIS WITHOUT HISTORY: large hernia hanging near thighs, need visual TECHNIQUE: Contiguous imaging is performed of the pelvis without contrast. Coronal and sagittal refor mats are reviewed. [facility] use at least one of these dose optimization stef hniques: automated exposure control; mA and/or kV adjustment per patient size (includes targeted exam s where dose is matched to clinical indication); or iterative reconstruction. DLP: 1615.89 mGy.cm COMPARISON: No similar studies. There is a large fatty mass extending inferior from the LEFT inguinal region. This fatty mass begins just medial to the LEFT gracilis muscle and adductor muscles. Mass extends over length of 17 cm along the medial LEFT femur and transversely by 10.7 cm. This mass appears just lateral to the inguinal re gion and scrotal sac and extends along the medial LEFT thigh. There is displacement of the scrotum an d scrotal contents to the RIGHT. There are some just very minimal stranding which may be edema along the medial fatty tumor. No similar finding on the RIGHT. Inguinal canals are patent bilaterally containing fat only. There is no herniation of GI tract along the inguinal canals are into the medial LEFT thigh fatty tumor. Since the prior examination catheter has been placed in the urinary bladder. Bladder is collapsed and is bladder wall thickening with air in the bladder along with a Canela catheter and prostate gland en largement. Mild presacral soft tissue thickening and stranding of the soft tissues of the pelvis. Mil d constipation. No free air is identified. There is continued mild bilateral ureteral dilatation invo lving the distal ureters. Small lipoma adjacent to the LEFT hip. Prior RIGHT hip orthopedic fixation. Partial fusion of the SI joints. Osteopenia. CT/CT pelvis wo con [id number] IMPRESSION: 1. The large soft tissue mass seen on physical exam close to the scrotal sac a ppears to be a fatty tumor extending along the medial LEFT thigh, just medial t o the gracilis muscle measuring 17 cm in length by 10.7 cm transversely. There is no GI tract within this hernia. 2. Inguinal canals are patent bilaterally containing a small amount of fat but no GI tract. 3. Canela catheter is now present in the urinary bladder which is nondistended with bladder wall thickening and air. 4. Continued dilatation of the distal ureters with ureteral wall inflammation. Still cannot exclude obstruction at the UV junctions.
[2021-11-22 10:04] LABS: Basophils # 0.1 10^3/uL (0.0-0.1); Basophils % 0.5 %; Eosinophils # 0.1 10^3/uL (0.0-0.8); Eosinophils % 0.9 %; Hematocrit 29.6 % (42.0-52.0); Hemoglobin 10.5 g/dL (11.7-16.6); Lymphocytes # 1.3 10^3/uL (0.8-4.8); Lymphocytes % 12.5 %; Mean Corpuscular HGB Conc 35.5 g/dL (30.0-36.0); Mean Corpuscular Hemoglobin 30.1 pg (28.0-34.0); Mean Corpuscular Volume 84.8 fl (80-94); Mean Platelet Volume 9.2 fL (7.4-10.4); Monocytes # 0.7 10^3/uL (0.2-0.9); Monocytes % 6.4 %; Neutrophils # 8.25 10^3/uL (1.8-7.7); Neutrophils % 78.9 %; Nucleated Red Blood Cells % 0 %; Platelet Count 403 10^3/cmm (130-400); Red Blood Count 3.49 10^6/uL (4.1-5.3); Red Cell Distribution Width 11.9 % (12.1-15.1); White Blood Count 10.5 10^3/uL (4.0-10.0)
--- NOTE | 2021-11-22 10:14 | PC.CHAP ---
Pastoral Care Encounter/Spiritual Assessment Type of Contact [] Declined appeals manager visit [] Patient/Family/Request visit [] Outpatient visit [] Follow-up visit [] Physician referral [] Code/Alert [x] Routine visit [] Staff referral [] Actively dying [] Patient sleeping [] Family support [] [x] Out of room [] Palliative care [] [] Receiving care in room [] Pre-surgical visit [] Trauma [] Long length of stay [x] ICU visit [x] Other: testing Relational/Emotional Strength [] Patient feels connected with others/family/visitors/staff [] Distress [] Loneliness/isolation [] Abandonment Spirituality of Patient [] Person of [place] [] Attends Latter Day of their [place] [] Believes in Prayer [] Reads Bible or Yarsani materials [] There are Spiritual issues to be addressed Barrel Washer Machine Interventions [x] Prayer [] Active listening [] Non-anxious presence [] Spiritual/emotional support [] Crisis/trauma care [] Spiritual counseling [] Bereavement support [] Provided bereavement packet [] Provided Bible/devotional materials [] Provided toy/stuffed animal, coloring book to patient or family member [] Provided Communion [] Anointing/[place] [] Salvation [x] Completed spiritual assessment [] Other: Impact on Illness or Injury [] Angry [] Fearful [] Anxious [] Often cries [] Exhaustion [] Unable to work [] Unable to attend sikhism [] Unable to walk/stand [] Unable to read [] Unable to drive [] Unable to eat/drink [] Unable to sleep [] Unable to be with family [] Patient intubated [] Other: Summary Time spent with patient
[2021-11-22] MEDS: sodium chloride 0.45% 1,000 ML 125 ML IV (11:05)
[2021-11-22 11:57] LABS: Alanine Aminotransferase 10 U/L (0-41); Albumin Level 3.9 g/dL (3.5-5.2); Alkaline Phosphatase 70 IU/L (40-130); Anion Gap 14.7 (5-19); Aspartate Amino Transferase 14 U/L (0-40); Blood Urea Nitrogen 23 mg/dL (8-23); Calcium 8.4 mg/dL (8.5-10.5); Carbon Dioxide 23 mmol/L (22-29); Chloride 88 mmol/L (98-107); Globulin 2.5 g/dL (1.3-4.6); Glucose 104 mg/dL (65-115); Magnesium 1.8 mg/dL (1.7-2.3); Osmolality Calculated 258 mOsm/kg (285-295); Phosphorus 2.9 mg/dL (2.5-4.5); Potassium 3.7 mmol/L (3.5-5.1); Sodium 122 mmol/L (136-145); Total Bilirubin 0.3 mg/dL (0.15-1.2); Total Protein 6.4 g/dL (6.6-8.7)
[2021-11-22] MEDS: cefTRIAXone 1,000 MG in sodium chloride 0.9% (plus) 50 ML 100 MG IV (14:59)
--- NOTE | 2021-11-22 15:53 | P.PN_ITS ---
Subjective Subjective: Hospital course, labs appreciated. Patient sitting up in chair today with family at bedside. Denies any nausea, vomiting, headache. Ocu-Bob and alert. Around 2 L of urine overnight. Canela in place. Vitals/I&O/Wt Last Vital Signs Temp 98.7 F 11/22/21 10:00 Pulse 68 11/22/21 14:30 Resp 19 H 11/22/21 14:30 BP 141/74 11/22/21 13:30 Pulse Ox 99 11/22/21 10:00 11/22/21 11/22/21 11/22/21 06:59 14:59 22:59 Intake Total 370 / 3689.917 760.833 / 760.833 50 / 810.833 Output Total 1400 / 4225 1000 / 1000 Balance -1030 / -535.083 -239.167 / -239.167 50 / -189.167 Physical Exam Narrative: General: Alert oriented x3, patient seen sitting in recliner feeling better HEENT: Normocephalic, atraumatic, EOMI, breathing normally on room air Cardio: Regular rate rhythm, normal S1-S2, no murmurs Respiratory: Good bilateral air entry, no wheezes no rhonchi appreciated GI: Abdomen soft, non tender, non distended Behavior: Appropriate and cooperative Extremities:Trace b/l LE edema, no cyanosis Urinary Catheter Management: Canela: Cath Placed During This Visit: yes Reason for Continuing Indwelling Catheter: Accurate Measurement of Urinary Output in Critically Ill Patients Urinary Catheter Date of Insertion: 11/20/21 Urinary Catheter Time of Insertion: 10:28 Data : 11/22/21 09:42 11/22/21 11:23 Micro: Microbiology 11/20/21 10:10 Urine Culture - Final Urine,Clean Catch 11/20/21 15:00 Blood Culture - Preliminary Blood NEGATIVE TO DATE 11/20/21 15:09 Blood Culture - Preliminary Blood NEGATIVE TO DATE A&P Assessment and plan (1) SARAH (acute kidney injury): Status: Acute (2) Hyponatremia: Status: Acute (3) Bladder outflow obstruction: Status: Acute (4) Bladder distention: Status: Acute (5) Bilateral hydronephrosis: Status: Acute (6) Leukocytosis: Status: Acute (7) High anion gap metabolic acidosis: Status: Acute (8) Hypertension: Status: Acute (9) Anemia: Status: Acute (10) Hyperphosphatemia: Status: Acute Plan Acute kidney injury secondary to bladder outlet obstruction leading to bilateral hydronephrosis: Case discussed with Dr. Ward. Most likely chronic bladder obstruction. Continue Canela catheter. Not sure of patient's baseline kidney functions currently. Medical reconciliation done for nephrotoxic drugs. Hyponatremia: Most likely dilutional in setting of excessive oral intake, along with bladder outlet obstruction Sodium correcting to 122 within last 24 hours. Nephrology on board. Fluid switched to half NS early in the morning. Repeat BMP every 6 hour. If continues to remain the same most likely will stop IV fluids. Fluid restriction up to 1 L orally along with IV fluids. Hypertension: Goal blood pressure less than 140/90 mmHg. Continue with hydralazine 50 mg 3 times daily. Appreciate nephrology and urology recommendations. UA negative for UTI. Urine culture benign. Stop ceftriaxone. Analgesia: Tylenol as needed Glycemic control: Not needed check A1c, lipid panel. Nutrition: Renal nondialysis diet CODE STATUS: Full code PUD prophylaxis: Famotidine DVT prophylaxis: Heparin 5000 every 12 hourly. Discharge planning: Discharge home once renal functions and sodium became more stable. Transfer to [facility]. Attestations Medical Necessity Statement*: Requires further hospitalization for management of acute kidney injury, hyponatremia in setting of bladder outlet obstruction Time Spent in Patient Care: Greater than 35 minutes Coding Level of Care Code Acute Chief Technician X Ray for g Fwd Diagnoses Bladder distention N32.89 Bilateral hydronephrosis N13.30 Leukocytosis D72.829 High anion gap metabolic acidosis E87.2 Hypertension I10 Anemia D64.9 Hyperphosphatemia E83.39 Bladder outflow obstruction N32.0 SARAH (acute kidney injury) N17.9 Hyponatremia E87.1
[2021-11-22 16:44] LABS: Iron 42 ug/dL (59-158); Percent Saturation 23.7 % (20-50); Total Iron Binding Capacity 177 mcg/dl; Unsaturated Iron Binding 135 ug/dL (112-347)
[2021-11-22 16:57] LABS: Osmolality Urine 104 mOsm/kg (50-1200)
[2021-11-22 16:57] LABS: Osmolality Serum 245 mOsm/kg (278-305)
[2021-11-22 19:17] LABS: Alanine Aminotransferase 11 U/L (0-41); Albumin Level 4.1 g/dL (3.5-5.2); Alkaline Phosphatase 78 IU/L (40-130); Anion Gap 16.7 (5-19); Aspartate Amino Transferase 15 U/L (0-40); Blood Urea Nitrogen 23 mg/dL (8-23); Calcium 8.6 mg/dL (8.5-10.5); Carbon Dioxide 22 mmol/L (22-29); Chloride 90 mmol/L (98-107); Globulin 2.6 g/dL (1.3-4.6); Glucose 112 mg/dL (65-115); Magnesium 1.9 mg/dL (1.7-2.3); Osmolality Calculated 264 mOsm/kg (285-295); Phosphorus 3.1 mg/dL (2.5-4.5); Potassium 3.7 mmol/L (3.5-5.1); Sodium 125 mmol/L (136-145); Total Bilirubin 0.2 mg/dL (0.15-1.2); Total Protein 6.7 g/dL (6.6-8.7)
[2021-11-23] VITALS (16 sets, daily range): BP systolic 111–150; BP diastolic 58–87; PULSE 52–91; RESP 9–28; TEMP 36.4–36.9; O2SAT 95–97
[2021-11-23] MEDS: heparin 5,000 unit/mL INJ 1 mL 5000 UNIT SUBCUT ×3 (02:05→23:30)
[2021-11-23] MEDS: acetaminophen 325 mg Tablet 650 MG PO ×3 (02:32→20:41)
[2021-11-23 03:09] LABS: Alanine Aminotransferase 11 U/L (0-41); Albumin Level 3.9 g/dL (3.5-5.2); Alkaline Phosphatase 72 IU/L (40-130); Anion Gap 14.9 (5-19); Aspartate Amino Transferase 14 U/L (0-40); Blood Urea Nitrogen 23 mg/dL (8-23); Calcium 8.3 mg/dL (8.5-10.5); Carbon Dioxide 22 mmol/L (22-29); Chloride 93 mmol/L (98-107); Chol HDL Ratio 2.29 mg/dL (1.0-5.00); Cholesterol 133 mg/dL (0-200); Globulin 2.4 g/dL (1.3-4.6); Glucose 108 mg/dL (65-115); HDL Cholesterol 58 mg/dL (60-100); LDL Cholesterol Calculated 57 mg/dL (50-129); Magnesium 1.9 mg/dL (1.7-2.3); Osmolality Calculated 266 mOsm/kg (285-295); Potassium 3.9 mmol/L (3.5-5.1); Sodium 126 mmol/L (136-145); Total Bilirubin 0.2 mg/dL (0.15-1.2); Total Protein 6.3 g/dL (6.6-8.7); Triglycerides 90 mg/dL (0-150); VLDL Cholestrol Calculation 18 mg/dL (0-30)
[2021-11-23 03:10] LABS: Estmated Average Glucose 111; Hemoglobin A1C 5.5 % (4.0-6.0)
[2021-11-23] MEDS: lactulose oral liq 20 gm/30 mL UDC 30 GM PO (07:03)
[2021-11-23] MEDS: sodium chloride 0.9% 1,000 ML 100 ML IV ×2 (07:03→16:17)
--- NOTE | 2021-11-23 07:03 | PM.PN ---
Subjective Subjective: feels well. no n/v/f/c/valencia/d/leg pains. has some edema. Medications: Reviewed: Yes Medication Review Details: Current Medications Acetaminophen (Acetaminophen 325 Mg Tablet) 650 mg PO Q6H PRN PRN Reason: MILD PAIN Last Admin: 11/23/21 02:32 Dose: 650 mg Documented by: Heparin Sodium (Porcine) (Heparin 5,000 Unit/Ml Inj 1 Ml) 5,000 unit SUBCUT Q12H [facility] Last Admin: 11/23/21 02:05 Dose: 5,000 unit Documented by: Hydralazine HCl (Hydralazine 50 Mg Tablet) 50 mg PO TID [facility] Last Admin: 11/22/21 20:09 Dose: 50 mg Documented by: Sodium Chloride (Sodium Chloride 0.9%) 1,000 mls @ 100 mls/hr IV .Q10H [facility] Ondansetron HCl (Ondansetron 2 Mg/Ml Sdv 2 Ml) 4 mg IVP Q6H PRN PRN Reason: NAUSEA AND VOMITING Vitals/I&O/Wt Last Vital Signs Temp 98.0 F 11/22/21 18:00 Pulse 52 L 11/23/21 06:00 Resp 9 L 11/23/21 06:00 BP 115/61 11/23/21 06:00 Pulse Ox 98 11/22/21 18:00 11/22/21 11/23/21 11/23/21 22:59 06:59 14:59 Intake Total 1410 / 2170.833 800 / 2970.833 Output Total 2200 / 3200 1200 / 4400 Balance -790 / -1029.167 -400 / -1429.167 Physical Exam Narrative: comfortable sitting up, NARD vs noted- and stable heent- nc/at, eomi, anicteric neck supple lungs clear heart reg, no rub abd soft, nt, nd, + bs + matos ext 1+ edema neuro- a,a, o x 3 Urinary Catheter Management: Matos: Cath Placed During This Visit: yes Reason for Continuing Indwelling Catheter: Accurate Measurement of Urinary Output in Critically Ill Patients Urinary Catheter Date of Insertion: 11/20/21 Urinary Catheter Time of Insertion: 10:28 Data : 11/22/21 09:42 11/23/21 02:04 Micro: Microbiology 11/20/21 10:10 Urine Culture - Final Urine,Clean Catch A&P Assessment and plan (1) SARAH (acute kidney injury): 75 yr old man 1. SARAH- from b/l hydronephrosis- likely was chtonic- will see how much renal recovery he will have -please have urology see pt- medicine discussed w/ Dr Ward. -ua w/ 2+ blood -ct scan-Kidneys and ureters: Marked bilateral renal hydronephrosis and ureterectasis diffusely to a level near the urinary bladder which could be on the basis of profound bladder distension versus coexistent distal ureteral obstruction bilaterally which is a less likely consideration. 2. hyponatremia- from obstruction and high water intake. ur na was 17- rec ns and free water restriction -monitor chem 7 -na 126- nice slow improvement- can aim for above 130 tomorrow 3. htn- dec meds seen and examined w/ RN- telehealth visit time spent 30 min Status: Acute Plan see above Attestations Medical Necessity Statement*: per medicine Time Spent in Patient Care: 16 - 35 minutes (>than 50% of time spent in counselling and/or direct pt care on unit). Coding Level of Care Code Acute Infection Preventionist for Titus Parra Diagnoses SARAH (acute kidney injury) N17.9
--- NOTE | 2021-11-23 07:11 | PC.NURSE ---
Shift Summary Patient had an uneventful shift, he reported sleeping throughout the night. Remains alert/oriented on room air-no wounds noted at this time. IVF infusing please see MAR for detail. Canela catheter drained 1200 mls of urine overnight.
[2021-11-23] MEDS: hyDRALAzine 50 mg Tablet 25 MG PO ×3 (08:46→20:41)
--- NOTE | 2021-11-23 10:16 | PC.CHAP ---
Pastoral Care Encounter/Spiritual Assessment Type of Contact [] Declined taper and floater visit [] Patient/Family/Request visit [] Outpatient visit [] Follow-up visit [] Physician referral [] Code/Alert [x] Routine visit [] Staff referral [] Actively dying [] Patient sleeping [] Family support [] [] Out of room [] Palliative care [] [x] Receiving care in room [] Pre-surgical visit [] Trauma [] Long length of stay [x] ICU visit [] Other: Relational/Emotional Strength [] Patient feels connected with others/family/visitors/staff [] Distress [] Loneliness/isolation [] Abandonment Spirituality of Patient [] Person of [place] [] Attends Sikhism of their [place] [] Believes in Prayer [] Reads Bible or Methodist materials [] There are Spiritual issues to be addressed Stretcher Leveler Operator Helper Interventions [x] Prayer [] Active listening [] Non-anxious presence [] Spiritual/emotional support [] Crisis/trauma care [] Spiritual counseling [] Bereavement support [] Provided bereavement packet [] Provided Bible/devotional materials [] Provided toy/stuffed animal, coloring book to patient or family member [] Provided Communion [] Anointing/[place] [] Salvation [x] Completed spiritual assessment [] Other: Impact on Illness or Injury [] Angry [] Fearful [] Anxious [] Often cries [] Exhaustion [] Unable to work [] Unable to attend latter day [] Unable to walk/stand [] Unable to read [] Unable to drive [] Unable to eat/drink [] Unable to sleep [] Unable to be with family [] Patient intubated [] Other: Summary Time spent with patient
[2021-11-23 12:28] LABS: Basophils # 0.1 10^3/uL (0.0-0.1); Eosinophils # 0.2 10^3/uL (0.0-0.8); Eosinophils % 1.9 %; Hematocrit 28.9 % (42.0-52.0); Hemoglobin 10.4 g/dL (11.7-16.6); Lymphocytes # 1.4 10^3/uL (0.8-4.8); Lymphocytes % 13.3 %; Mean Corpuscular Hemoglobin 30.5 pg (28.0-34.0); Mean Corpuscular Volume 84.8 fl (80-94); Mean Platelet Volume 9.2 fL (7.4-10.4); Monocytes # 0.7 10^3/uL (0.2-0.9); Monocytes % 6.3 %; Neutrophils % 76.8 %; Nucleated Red Blood Cells % 0 %; Platelet Count 437 10^3/cmm (130-400); Red Blood Count 3.41 10^6/uL (4.1-5.3); White Blood Count 10.4 10^3/uL (4.0-10.0)
--- NOTE | 2021-11-23 12:48 | PC.SOCIAL ---
IMM Update pg 2 of IMM updated and reviewed w/ patient. Copy provided and copy placed in chart.
--- NOTE | 2021-11-23 12:49 | P.CONIM_ITS ---
Providers/Reason For Consult Consulting Physician/Specialty*: Urology/Ward Reason for Consult*: Bladder outlet obstruction with obstructive uropathy Attending Physician: Jake Melendez MD History of Present Illness History of Present Illness Neil Lowe is a 75 year old male who I evaluated for the first time today at the request of Dr. Melendez. Presented to the emergency department with complaints of abdominal pain, progressive LUTS and incontinence. In addition he experienced some chills and abdominal fullness. CT scan demonstrated a severely distended bladder with severe chronic bilateral hydronephrosis with ureteral tortuosity and some parenchymal thinning. Creatinine was elevated at 3.0, he was hyponatremic, and he was admitted for further evaluation and treatment. Canela catheter was placed with large volume returned. I was not able to ascertain the total volume drained because the catheter was clamped and then drained again later. Per the CT scan though it looks to be well over 3 L. Creatinine has been slowly declining as would be expected with chronic obstruction. He has experienced postobstructive diuresis. Seems to be improving overall as well. Tolerating the catheter reasonably well. Review of Systems Const: Denies: fever(s) or chills ENMT: Denies: throat pain or hoarseness Card: Denies: chest pain or palpitations Resp: Denies: productive cough or wheezing : Reports: other (Progressive p.o. symptoms: Decreased FOS, small voids, dribbling) Musc: Denies: joint redness Skin/Breast: Denies: rash Neuro: Denies: confusion, behavioral changes, Slurred speech present or seizure-like activity Psych: Denies: anxiety or depression Endo: Denies: flushing [place]/Lymph: Denies: easy bruising or easy bleeding All/Imm: Denies: urticaria Medications/Allergies Home Medications Medication Instructions Recorded Confirmed Last Taken Type hydralazine 50 mg tablet 25 mg PO TID #90 tab 11/24/21 12/02/21 Unknown Rx tamsulosin 0.4 mg capsule 0.4 mg PO DAILY #30 cap 11/24/21 12/02/21 Unknown Rx Allergies Allergy/AdvReac Type Severity Reaction Status Date / Time ketorolac [From Toradol] Allergy Intermediate ADR-Vomitin Verified 12/02/21 12:55 g Current Medications Generic Name Dose Route Start Last Admin Trade Name Freq PRN Reason Stop Dose Admin Acetaminophen 650 mg 11/22/21 00:59 11/23/21 10:08 Acetaminophen 325 Mg Tablet PO 650 mg Q6H PRN Administration MILD PAIN Heparin Sodium (Porcine) 5,000 unit 11/20/21 11:45 11/23/21 12:10 Heparin 5,000 Unit/Ml Inj 1 Ml SUBCUT 5,000 unit Q12H RAZA Administration Hydralazine HCl 25 mg 11/23/21 09:00 11/23/21 08:46 Hydralazine 50 Mg Tablet PO 25 mg TID RAZA Administration Sodium Chloride 1,000 mls @ 100 mls/hr 11/23/21 06:45 11/23/21 07:03 Sodium Chloride 0.9% IV 100 mls/hr .Q10H RAZA Administration PFSH Acute PFSH: Medical History Hypertension Urinary retention Surgical History No significant past surgical history Social History (Updated 12/02/21 @ 13:09 by Ranulfo Hamm LPN) Smoking and tobacco status: former smoker Alcohol intake: never Substance/Drug Use: never Vitals/I&O/Wt Last Vital Signs Temp 97.5 F L 11/23/21 08:00 Pulse 83 11/23/21 10:00 Resp 23 H 11/23/21 10:00 BP 135/67 11/23/21 10:00 Pulse Ox 97 11/23/21 08:00 11/22/21 11/23/21 11/23/21 22:59 06:59 14:59 Intake Total 1410 / 2170.833 800 / 2970.833 233 / 233 Output Total 2200 / 3200 1200 / 4400 Balance -790 / -1029.167 -400 / -1429.167 233 / 233 Physical Exam Const: COMMON NORMALS: no acute distress, alert and well nourished GENERAL APPEARANCE: well kempt and well developed ORIENTATION/CONSCIOUSNESS: not confused HENMT: COMMON NORMALS: normocephalic and atraumatic HEAD & SCALP: normocephalic and atraumatic Eye: COMMON NORMALS: conjunctivae normal and no scleral icterus CONJUNCTIVA: Yes conjunctivae normal Neck/C-Spine: COMMON NORMALS: full ROM GENERAL: Yes normal visual inspection Lymph: LYMPHATIC: no lymphadenopathy noted Resp: COMMON NORMALS: normal respiratory effort EFFORT & INSPECTION: No labored Cardio: COMMON NORMALS: regular rate and regular rhythm RATE: regular rate RHYTHM: regular rhythm : COMMON NORMALS: Yes no CVA tenderness BLADDER/KIDNEY EXAM: Yes no CVA tenderness Back/Pelvis: COMMON NORMALS: no CVA tenderness Extremity: COMMON NORMALS: no clubbing, cyanosis or edema Neuro: COMMON NORMALS: no focal motor deficits SENSORIUM/ORIENTATION: Yes alert Psych: COMMON NORMALS: mental status grossly normal APPEARANCE: Yes grossly normal and Yes well kempt ATTITUDE: Yes calm and Yes engaged Skin: COMMON NORMALS: no rashes or lesions noted and no jaundice GENERAL SKIN EXAM: no rashes or lesions noted Urinary Catheter Management: Canela: Cath Placed During This Visit: yes Reason for Continuing Indwelling Catheter: Accurate Measurement of Urinary Output in Critically Ill Patients Urinary Catheter Date of Insertion: 11/20/21 Urinary Catheter Time of Insertion: 10:28 Data : 11/24/21 04:25 11/24/21 06:10 A&P Assessment and plan (1) Bladder distention: Appears to be secondary to 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 Symptoms have been progressive over an extended period of time with more accelerated symptoms recently. Status: Acute (2) Bilateral hydronephrosis: From chronic bladder outlet obstruction Expect complete resolution with Canela catheter maintenance Status: Acute (3) Urinary retention: Status: Acute Plan 1. Maintain Canela catheter for least 2 weeks and follow-up in the office for voiding trial cystoscopy [facility] instruction. 2. Initiated TAMSULOSIN 0.4 mg p.o. nightly 3. 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 I Anticipate that his renal function will continue to improve but slowly due to the chronic nature. Coding Level of Care Code Acute Driver Starting Gate for g Fwd Exam Comprehensive Diagnoses Bladder distention N32.89 Bilateral hydronephrosis N13.30 Urinary retention R33.9
--- NOTE | 2021-11-23 14:31 | P.PN_ITS ---
Subjective Subjective: No complaints overnight. Patient has remained medically stable and afebrile. States feeling better. Has been walking around in the room slowly. Asking for walker for home. Denies any nausea, vomiting, headache. Started on fluid back today as per nephrology recommendations. Currently on normal saline 100 cc/h. Vitals/I&O/Wt Last Vital Signs Temp 98 F 11/23/21 14:00 Pulse 78 11/23/21 14:00 Resp 24 H 11/23/21 14:00 BP 142/78 11/23/21 14:00 Pulse Ox 97 11/23/21 14:00 11/22/21 11/23/21 11/23/21 22:59 06:59 14:59 Intake Total 1410 / 2170.833 800 / 2970.833 733 / 733 Output Total 2200 / 3200 1200 / 4400 Balance -790 / -1029.167 -400 / -1429.167 733 / 733 Physical Exam Narrative: General: Alert oriented x3, patient seen sitting in recliner feeling better HEENT: Normocephalic, atraumatic, EOMI, breathing normally on room air Cardio: Regular rate rhythm, normal S1-S2, no murmurs Respiratory: Good bilateral air entry, no wheezes no rhonchi appreciated GI: Abdomen soft, non tender, non distended Behavior: Appropriate and cooperative Extremities:Trace b/l LE edema, no cyanosis Urinary Catheter Management: Canela: Cath Placed During This Visit: yes Reason for Continuing Indwelling Catheter: Accurate Measurement of Urinary Output in Critically Ill Patients Urinary Catheter Date of Insertion: 11/20/21 Urinary Catheter Time of Insertion: 10:28 Data : 11/23/21 12:08 11/23/21 02:04 A&P Assessment and plan (1) SARAH (acute kidney injury): Status: Acute (2) Hyponatremia: Status: Acute (3) Bladder outflow obstruction: Status: Acute (4) Bladder distention: Status: Acute (5) Bilateral hydronephrosis: Status: Acute (6) Leukocytosis: Status: Acute (7) High anion gap metabolic acidosis: Status: Acute (8) Hypertension: Status: Acute (9) Anemia: Status: Acute (10) Hyperphosphatemia: Status: Acute Plan Acute kidney injury secondary to bladder outlet obstruction leading to bilateral hydronephrosis: Case discussed with Dr. Ward. Most likely chronic bladder obstruction. Con tinue Canela catheter. Not sure of patient's baseline kidney functions currently. Medical reconciliation done for nephrotoxic drugs. Flomax 0.4 nightly. Hyponatremia: Most likely dilutional in setting of excessive oral intake, along with bladder outlet obstruction Sodium correcting to 122 within last 24 hours. Nephrology on board. Normal saline 100 cc/h as per nephrology. Fluid restriction up to 1 L orally along with IV fluids. Hypertension: Goal blood pressure less than 140/90 mmHg. Hydralazine 25 mg twice daily. Appreciate nephrology and urology recommendations. UA negative for UTI. Urine culture benign. Stop ceftriaxone. Analgesia: Tylenol as needed Glycemic control: Not needed check A1c, lipid panel. Nutrition: Renal nondialysis diet CODE STATUS: Full code PUD prophylaxis: Famotidine DVT prophylaxis: Heparin 5000 every 12 hourly. Discharge planning: Discharge home once renal functions and sodium became more stable. Transfer to [facility]. Attestations Medical Necessity Statement*: Requires further hospitalization for management of hyponatremia, acute kidney injury secondary to bladder outlet obstruction while hyponatremia resolves Time Spent in Patient Care: Greater than 35 minutes Coding Level of Care Code Acute Injection Molding Machine Tender for [facility] Fwd Diagnoses SARAH (acute kidney injury) N17.9 Hyponatremia E87.1 Bladder outflow obstruction N32.0 Bladder distention N32.89 Bilateral hydronephrosis N13.30 Leukocytosis D72.829 High anion gap metabolic acidosis E87.2 Hypertension I10 Anemia D64.9 Hyperphosphatemia E83.39
--- NOTE | 2021-11-23 15:07 | PC.NURSE ---
Applied Matos Leg bag per verbal order from Dr. Melendez. Patient is to be discharged with matos to their residence pending follow up appointment.
[2021-11-23 16:29] LABS: Anion Gap 17.9 (5-19); Blood Urea Nitrogen 22 mg/dL (8-23); Calcium 8.5 mg/dL (8.5-10.5); Carbon Dioxide 21 mmol/L (22-29); Chloride 94 mmol/L (98-107); Glucose 121 mg/dL (65-115); Osmolality Calculated 273 mOsm/kg (285-295); Potassium 3.9 mmol/L (3.5-5.1); Sodium 129 mmol/L (136-145)
--- NOTE | 2021-11-23 18:06 | PC.NURSE ---
Per report from ESTHELA Austin, matos catheter is to stay in place for retention.
[2021-11-24] VITALS (7 sets, daily range): BP systolic 128–156; BP diastolic 63–79; PULSE 64–78; RESP 17–18; TEMP 36.6–36.7; O2SAT 93–98
[2021-11-24 04:58] LABS: Basophils # 0.1 10^3/uL (0.0-0.1); Basophils % 1.2 %; Eosinophils # 0.4 10^3/uL (0.0-0.8); Eosinophils % 4.1 %; Hematocrit 30.1 % (42.0-52.0); Hemoglobin 9.8 g/dL (11.7-16.6); Lymphocytes # 1.6 10^3/uL (0.8-4.8); Lymphocytes % 18.2 %; Mean Corpuscular HGB Conc 32.6 g/dL (30.0-36.0); Mean Corpuscular Hemoglobin 30.2 pg (28.0-34.0); Mean Corpuscular Volume 92.9 fl (80-94); Mean Platelet Volume 9.4 fL (7.4-10.4); Monocytes # 0.6 10^3/uL (0.2-0.9); Monocytes % 7.5 %; Neutrophils # 5.85 10^3/uL (1.8-7.7); Neutrophils % 68.3 %; Nucleated Red Blood Cells % 0 %; Platelet Count 349 10^3/cmm (130-400); Red Blood Count 3.24 10^6/uL (4.1-5.3); Red Cell Distribution Width 12.8 % (12.1-15.1); White Blood Count 8.6 10^3/uL (4.0-10.0)
--- NOTE | 2021-11-24 06:48 | P.PN_ITS ---
Subjective Subjective: feels better. trace edema. no n/v/f/c/valencia/d/leg pains. wants to go home. Medications: Reviewed: Yes Medication Review Details: Current Medications Acetaminophen (Acetaminophen 325 Mg Tablet) 650 mg PO Q6H PRN PRN Reason: MILD PAIN Last Admin: 11/23/21 20:41 Dose: 650 mg Documented by: Heparin Sodium (Porcine) (Heparin 5,000 Unit/Ml Inj 1 Ml) 5,000 unit SUBCUT Q12H [facility] Last Admin: 11/23/21 23:30 Dose: 5,000 unit Documented by: Hydralazine HCl (Hydralazine 50 Mg Tablet) 25 mg PO TID [facility] Last Admin: 11/23/21 20:41 Dose: 25 mg Documented by: Sodium Chloride (Sodium Chloride 0.9%) 1,000 mls @ 100 mls/hr IV .Q10H [facility] Last Admin: 11/23/21 16:17 Dose: 100 mls/hr Documented by: Ondansetron HCl (Ondansetron 2 Mg/Ml Sdv 2 Ml) 4 mg IVP Q6H PRN PRN Reason: NAUSEA AND VOMITING Tamsulosin HCl (Tamsulosin 0.4 Mg Capsule) 0.4 mg PO DAILY [facility] Vitals/I&O/Wt Last Vital Signs Temp 97.8 F 11/24/21 05:45 Pulse 64 11/24/21 06:00 Resp 18 11/24/21 05:45 BP 148/79 11/24/21 05:45 Pulse Ox 96 11/24/21 05:45 11/23/21 11/23/21 11/24/21 14:59 22:59 06:59 Intake Total 733 / 733 1963.333 / 2696.333 Output Total 1050 / 1050 1080 / 2130 Balance 733 / 733 913.333 / 1646.333 -1080 / 566.333 Physical Exam Narrative: comfortable sitting up, NARD vs noted- and stable heent- nc/at, eomi, anicteric neck supple lungs clear heart reg, no rub abd soft, nt, nd, + bs + matos ext 1+ edema neuro- a,a, o x 3 Urinary Catheter Management: Matos: Cath Placed During This Visit: yes Reason for Continuing Indwelling Catheter: Acute Urinary Retention or Obst ruction Urinary Catheter Date of Insertion: 11/20/21 Urinary Catheter Time of Insertion: 10:28 Data : 11/24/21 04:25 11/23/21 15:50 A&P Assessment and plan (1) SARAH (acute kidney injury): 75 yr old man 1. SARAH- from b/l hydronephrosis- likely was chtonic- will see how much renal recovery he will have -appreciate urology, Dr Ward started tamsulosin- f/u in 2 weeks. -ua w/ 2+ blood -ct scan-Kidneys and ureters: Marked bilateral renal hydronephrosis and uretere ctasis diffusely to a level near the urinary bladder which could be on the basis of profound bladder distension versus coexistent distal ureteral obstruction bilaterally which is a less likely consideration. 2. hyponatremia- from obstruction and high water intake. ur na was 17- rec ns and free water restriction -monitor chem 7 -na 129- nice slow improvement 3. htn- okay renal okay for d/c w/ outpt renal and f/u d/c ivf seen and examined w/ RN- telehealth visit time spent 30 min Status: Acute Plan see above Attestations Medical Necessity Statement*: per medicine Time Spent in Patient Care: 16 - 35 minutes (>than 50% of time spent in counselling and/or direct pt care on unit) . Coding Level of Care Code Acute Event Organizer for Titus Parra Diagnoses SARAH (acute kidney injury) N17.9
[2021-11-24 07:08] LABS: Alanine Aminotransferase 10 U/L (0-41); Albumin Level 3.7 g/dL (3.5-5.2); Alkaline Phosphatase 74 IU/L (40-130); Anion Gap 14.9 (5-19); Aspartate Amino Transferase 14 U/L (0-40); Blood Urea Nitrogen 21 mg/dL (8-23); Calcium 7.7 mg/dL (8.5-10.5); Carbon Dioxide 22 mmol/L (22-29); Chloride 98 mmol/L (98-107); Globulin 2.5 g/dL (1.3-4.6); Glucose 111 mg/dL (65-115); Osmolality Calculated 276 mOsm/kg (285-295); Potassium 3.9 mmol/L (3.5-5.1); Sodium 131 mmol/L (136-145); Total Bilirubin 0.2 mg/dL (0.15-1.2); Total Protein 6.2 g/dL (6.6-8.7)
[2021-11-24] MEDS: tamsulosin 0.4 mg Capsule PO (10:29)
[2021-11-24] MEDS: hyDRALAzine 50 mg Tablet 25 MG PO (10:29)
--- NOTE | 2021-11-24 12:04 | PM.DCS ---
Discharge Providers Date of Admission: 11/20/21 10:19 Date of Discharge: November 24, 2021 Attending Provider at Admission: Dona Gutierrez MD Attending Provider at Discharge: Jake Melendez MD Consults: Urology: Dr. Ward Tele nephrology Diagnoses at Discharge Discharge Diagnosis (1) SARAH (acute kidney injury): Status: Acute Reason for Visit Reason for Visit: abd pain Brief History: History as per HPI: Neil Lowe is a 75 year old male with no significant past medical history presented to the hospital today with complaint of abdominal pain.? He states about a month ago he has had progressively increasing difficulty with urination.? Overnight he also experiencing urinary incontinence.? At one point he also had burning pain in his epigastric region.? The night before yesterday he also experienced chills.? He says he has been worsening every day.? He is also had a lot of belching.? Otherwise does not complain of anything else.? He also states that since Monday he has been constipated.? He has not had a bowel movement.? Normally he goes every day and has no issues.? He has not seen a doctor in over 35 years but did see someone at an urgent clinic few years ago for an ear infection.? He has no labs or checkups done in the recent past. Course in the ER: On arrival significant labs hyponatremia 114, hypokalemia, WBC elevated 10.5, hemoglobin 11, urinalysis positive for leukocyte esterase and blood.? 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 Canela catheter was placed and immediately 1 L was removed.? Canela was then clamped and hospitalist was called for admission. Hospital Course Hospital Course Patient admitted to hospital further evaluation and management of acute hyponatremia, possible acute kidney injury. On admission CT abdomen pelvis was done which showed markedly distended bladder along with bilateral hydronephrosis and diffuse ureteral stasis most likely secondary to bladder outlet obstruction. Nephrology and urology were consulted. Patient was managed with Canela catheter placement, and fluid changes to resolve hyponatremia gradually. It is believed patient's hyponatremia secondary to a combination of decreased oral intake, dilutional secondary to bladder outlet obstruction. It is also believed that patient would gradually come back to his baseline sodium and creatinine level within next few weeks though baseline is not known as patient has not been seen by a physician for a long time. During hospitalization patient was also found to have swelling in the left groin for which CT scan was done and was consistent with femoral hernia secondary to fat not consistent with strangulation. Patient worked well with physical therapy. He is been discharged hemodynamically stable condition with Canela catheter in place. He is advised to follow-up with a new primary care provider with whom appointment has been made, follow-up with Dr. Ward within next 2 weeks for a possible voiding trial and further management of bladder outlet obstruction. He is advised to take less than 2 L of liquid daily. Physical Exam Narrative: General: Alert oriented x3, patient seen sitting in recliner feeling better HEENT: Normocephalic, atraumatic, EOMI, breathing normally on room air Cardio: Regular rate rhythm, normal S1-S2, no murmurs Respiratory: Good bilateral air entry, no wheezes no rhonchi appreciated GI: Abdomen soft, non tender, non distended Behavior: Appropriate and cooperative Extremities:Trace b/l LE edema, no cyanosis Urinary Catheter Management: Canela: Cath Placed During This Visit: yes Reason for Continuing Indwelling Catheter: Acute Urinary Retention or Obstruction Urinary Catheter Date of Insertion: 11/20/21 Urinary Catheter Time of Insertion: 10:28 Discharge Data Studies Completed and Pending Completed Studies During Hospitalization Category Date Time Status CT abdomen pelvis wo con [id number] Stat Cat Scan 11/20/21 07:[address] chest wo con [id number] Urgent Cat Scan 11/21/21 14:[address] head wo con* [id number] Urgent Cat Scan 11/21/21 14:[address] pelvis wo con [id number] Urgent Cat Scan 11/22/21 08:45 Completed Pending at discharge Category Date Time Status Blood Culture Stat Lab 11/20/21 15:00 Results Occult Blood Stool [Immunochemical Fecal OCB] Routine Lab 11/21/21 14:25 Uncollected Radiology Impressions Abdomen/Pelvis CT 11/20/21 07:22 IMPRESSION: 1. Marked bladder distension with mildly accentuated prostate gland size. Correlate for bladder outlet obstruction. 2. Prominent bilateral renal hydronephrosis and diffuse ureterectasis would be most likely etiology secondary to prolonged bladder distension. Other consideration could include a less likely coexistent bilateral distal ureteral obstruction. Consider reimaging with ultrasound following bladder evacuation. 3. Atherosclerosis abdominal aorta. 4. 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 5. Colonic diverticulosis. Chest CT 11/21/21 14:27 IMPRESSION: 1. Fat containing right-sided Bochdalek's hernia, unchanged from the prior CT scan. 2. Multivessel atherosclerotic disease which involves the coronary arteries. Head CT 11/21/21 14:27 IMPRESSION: No acute intracranial abnormality. Pelvis CT 11/22/21 08:45 IMPRESSION: 1. 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 There is no GI tract within this hernia. 2. Inguinal canals are patent bilaterally containing a small amount of fat but no GI tract. 3. Canela catheter is now present in the urinary bladder which is nondistended with bladder wall thickening and air. 4. Continued dilatation of the distal ureters with ureteral wall inflammation. Still cannot exclude obstruction at the UV junctions. Laboratory Results WBC 8.6 10^3/uL (4.0-10.0) 11/24/21 04:25 RBC 3.24 10^6/uL (4.1-5.3) L 11/24/21 04:25 Hgb 9.8 g/dL (11.7-16.6) L 11/24/21 04:25 Hct 30.1 % (42.0-52.0) L 11/24/21 04:25 MCV 92.9 fl (80-94) D 11/24/21 04:25 MCH 30.2 pg (28.0-34.0) 11/24/21 04:25 MCHC 32.6 g/dL (30.0-36.0) D 11/24/21 04:25 RDW 12.8 % (12.1-15.1) 11/24/21 04:25 Plt Count 349 10^3/cmm (130-400) 11/24/21 04:25 MPV 9.4 fL (7.4-10.4) 11/24/21 04:25 Neut % (Auto) 68.3 % 11/24/21 04:25 Lymph % (Auto) 18.2 % 11/24/21 04:25 Cavalier % (Auto) 7.5 % 11/24/21 04:25 Eos % (Auto) 4.1 % 11/24/21 04:25 Baso % (Auto) 1.2 % 11/24/21 04:25 Neut # (Auto) 5.85 10^3/uL (1.8-7.7) 11/24/21 04:25 Lymph # (Auto) 1.6 10^3/uL (0.8-4.8) 11/24/21 04:25 Cavalier # (Auto) 0.6 10^3/uL (0.2-0.9) 11/24/21 04:25 Eos # (Auto) 0.4 10^3/uL (0.0-0.8) 11/24/21 04:25 Baso # (Auto) 0.1 10^3/uL (0.0-0.1) 11/24/21 04:25 Nucleated RBC % (auto) 0 % 11/24/21 04:25 Nucleated RBCs # 0.0 /100WBC 11/24/21 04:25 Sodium 131 mmol/L (136-145) L 11/24/21 06:10 Potassium 3.9 mmol/L (3.5-5.1) 11/24/21 06:10 Chloride 98 mmol/L (98-107) 11/24/21 06:10 Carbon Dioxide 22 mmol/L (22-29) 11/24/21 06:10 Anion Gap 14.9 (5-19) 11/24/21 06:10 BUN 21 mg/dL (8-23) 11/24/21 06:10 Creatinine 2.6 mg/dL (0.7-1.2) H 11/24/21 06:10 GFR Calculation Not Reportable 11/24/21 06:10 Glucose 111 mg/dL (65-115) 11/24/21 06:10 Estimat Average Glucose 111 11/23/21 02:04 Hemoglobin A1c 5.5 % (4.0-6.0) 11/23/21 02:04 Serum Osmolality 245 mOsm/kg (278-305) L 11/20/21 15:09 Calculated Osmolality 276 mOsm/kg (285-295) L 11/24/21 06:10 Calcium 7.7 mg/dL (8.5-10.5) L 11/24/21 06:10 Phosphorus 3.0 mg/dL (2.5-4.5) 11/23/21 02:04 Magnesium 1.9 mg/dL (1.7-2.3) 11/23/21 02:04 Iron 42 ug/dL (59-158) L 11/22/21 11:32 TIBC 177 mcg/dl 11/22/21 11:32 % Saturation 23.7 % (20-50) 11/22/21 11:32 Unsat Iron Binding 135 ug/dL (112-347) 11/22/21 11:32 Total Bilirubin 0.2 mg/dL (0.15-1.2) 11/24/21 06:10 AST 14 U/L (0-40) 11/24/21 06:10 ALT 10 U/L (0-41) 11/24/21 06:10 Alkaline Phosphatase 74 IU/L (40-130) 11/24/21 06:10 Troponin T Gen 5 ng/L 46 ng/L (0-15) H 11/22/21 00:10 Total Protein 6.2 g/dL (6.6-8.7) L 11/24/21 06:10 Albumin 3.7 g/dL (3.5-5.2) 11/24/21 06:10 Globulin 2.5 g/dL (1.3-4.6) 11/24/21 06:10 Triglycerides 90 mg/dL (0-150) 11/23/21 02:04 Cholesterol 133 mg/dL (0-200) 11/23/21 02:04 LDL Cholesterol, Calc 57 mg/dL (50-129) 11/23/21 02:04 Total VLDL Cholesterol 18 mg/dL (0-30) 11/23/21 02:04 HDL Cholesterol 58 mg/dL (60-100) L 11/23/21 02:04 Cholesterol/HDL Ratio 2.29 mg/dL (1.0-5.00) 11/23/21 02:04 Lipase 15 U/L (13-60) 11/20/21 07:21 TSH 3.70 uIU/mL (0.27-4.20) 11/22/21 11:32 Urine Color Yellow (Yellow) 11/20/21 10:10 Urine Appearance Clear (CLEAR) 11/20/21 10:10 Urine pH 7 (5-7) 11/20/21 10:10 Ur Specific Weldon 1.005 (1.005-1.030) 11/20/21 10:10 Urine Protein Neg (Negative) 11/20/21 10:10 Urine Glucose (UA) Norm (Normal) 11/20/21 10:10 Urine Ketones Negative (Negative) 11/20/21 10:10 Urine Blood 2+ (Negative) H 11/20/21 10:10 Urine Nitrate Negative (Negative) 11/20/21 10:10 Urine Bilirubin Neg (Negative) 11/20/21 10:10 Urine Urobilinogen Norm mg/dL (Negative) 11/20/21 10:10 Ur Leukocyte Esterase 2+ (Negative) H 11/20/21 10:10 Urine RBC 0-4 /hpf (0-2) H 11/20/21 10:10 Urine WBC 5-10 /hpf (0-5) H 11/20/21 10:10 Ur Squamous Epith Cells 0-4 /hpf (0-5) H 11/20/21 10:10 Amorphous Sediment Not Reportable 11/20/21 10:10 Urine Bacteria 2+ /hpf (NONE) H 11/20/21 10:10 Urine Osmolality 104 mOsm/kg (50-1200) 11/21/21 06:00 Ur Random Sodium 17 mmol/L 11/21/21 06:00 Urine Creatinine 29 mg/dL (39-259) L 11/21/21 06:00 Vitals Last Vital Signs Temp 97.9 F 11/24/21 08:00 Pulse 71 11/24/21 08:00 Resp 18 11/24/21 08:00 BP 130/73 11/24/21 08:00 Pulse Ox 98 11/24/21 08:00 Discharge Plan Discharge Patient Disposition: Home Health Service Condition: Stable Prescriptions: New hydralazine 50 mg Tablet 25 mg PO TID Qty: 90 0RF tamsulosin 0.4 mg Capsule 0.4 mg PO DAILY Qty: 30 0RF Discontinued Aleve 220 mg Tablet 220 mg PO Q12H PRN (Reason: Pain) 0RF Discharge Orders: Discharge Order (Routine); Ordered 11/24/21 Ordered By: Jake Melendez Referrals: Deniz Up DO [Physician] - 12/02/21 1:00 pm Boyd Ward MD [Physician] - 2 weeks Matthew Mahajan MD [Referring] - Discharge Diet: Advance as tolerated Discharge Activity: Resume usual activity and Increase activity as tolerated Patient Instructions: Opioid Safety Activity Restrictions/Additional Instructions: Please follow-up with Dr. Ward within next 2 weeks. Please follow-up with your primary care provider at the earliest so that home health can be set up for you. Please repeat BMP when you follow-up with your primary care provider. Please restrict fluid intake to less than 2 L a day. Discharge Attestations Time Spent in Discharge Care*: greater than 30 min Specific Discharge Activities: educating patient, educating and/or supporting family/caregiver, discussing with pcp/other providers, discussing with case management assistant/social workers/dc planners, documenting/other paperwork and evaluating patient/reviewing data Status at Discharge: Cognitive status at discharge: cognitively intact, Behavioral status at discharge: cooperative, Functional status at discharge: uses cane/walker, Overall status at discharge: patient is back to baseline Quality Metrics Clinical Quality Measures [ No reported AMI, CVA or VTE this stay] Coding Level of Care Code Acute Chg FW DC note Diagnoses SARAH (acute kidney injury) N17.9
== END 2021-11-24 15:10 | disposition home or self-care (01) | DRG 699 ==
LOC: ER 10:18 → ICU 11:40 → MEDSURG 11-23 16:06
PROVIDERS: Internal Medicine Nephrology; Admitting Provider Internal Medicine; Emergency Provider Emergency Medicine; Visit Provider Student in an Organized Health Care Education/Training Program
DX: N32.0 Bladder-neck obstruction (principal); N17.9 Acute kidney failure, unspecified; E87.1 Hypo-osmolality and hyponatremia; N39.0 Urinary tract infection, site not specified; E87.2 Acidosis; N13.30 Unspecified hydronephrosis; I10 Essential (primary) hypertension; E87.6 Hypokalemia; E83.39 Other disorders of phosphorus metabolism; R33.8 Other retention of urine
CPT/HCPCS: 36415; 51702; 70450; 71250; 72192; 74176; 80048; 80053; 80061; 81001; 82570; 83036; 83540; 83550; 83690; 83735; 83930; 83935; 84100; 84300; 84443; 84484; 85025; 87040; 87086; 93005; 96361; 96372; 96374; 97110; 97116; 97161; 99285; J0696; J1644; J3010; J3475; J7030; J7131; Q3014

== ENCOUNTER → 2021-12-02 13:50 | Outpatient (BNVA) | payer MEDICARE, SELFPAY | PROVIDERS: PCP Family Medicine; Visit Provider Family Medicine | DX: N32.0 Bladder-neck obstruction (principal); Z76.89 Persons encountering health services in other specified circumstances; N17.9 Acute kidney failure, unspecified; E87.1 Hypo-osmolality and hyponatremia; D64.9 Anemia, unspecified | CPT/HCPCS: 80053; 84153; 85025 ==

== ENCOUNTER → 2021-12-06 09:59 | Outpatient (BNVA) | payer MEDICARE, SELFPAY | PROVIDERS: PCP Family Medicine; Visit Provider Nurse Practitioner Family | DX: R33.9 Retention of urine, unspecified (principal); N52.9 Male erectile dysfunction, unspecified; N32.0 Bladder-neck obstruction | CPT/HCPCS: G0463; 99214 ==

== ENCOUNTER → 2022-02-17 14:44 | Outpatient (BNVA) | payer MEDICARE, SELFPAY | PROVIDERS: PCP Family Medicine; Visit Provider Urology | DX: R33.9 Retention of urine, unspecified (principal) | CPT/HCPCS: 51798; 99213 ==

== ENCOUNTER → 2022-03-10 15:37 | Outpatient (BNVA) | payer MEDICARE, SELFPAY | PROVIDERS: PCP Family Medicine; Visit Provider Family Medicine | DX: D64.9 Anemia, unspecified (principal); E87.1 Hypo-osmolality and hyponatremia; N17.9 Acute kidney failure, unspecified; I10 Essential (primary) hypertension | CPT/HCPCS: 80053; 85025 ==

== ENCOUNTER → 2023-02-08 08:52 | Outpatient (BNVA) | payer MEDICARE, SELFPAY | PROVIDERS: PCP Family Medicine; Visit Provider Family Medicine | DX: N52.9 Male erectile dysfunction, unspecified (principal); I10 Essential (primary) hypertension; R97.20 Elevated prostate specific antigen [PSA]; Z12.5 Encounter for screening for malignant neoplasm of prostate | CPT/HCPCS: 80053; 80061; 85025; G0103 ==

== ENCOUNTER → 2023-08-09 09:22 | Outpatient (BNVA) | payer MEDICARE, SELFPAY | PROVIDERS: PCP Family Medicine; Visit Provider Family Medicine | DX: R97.20 Elevated prostate specific antigen [PSA]; E16.2 Hypoglycemia, unspecified; Z12.5 Encounter for screening for malignant neoplasm of prostate | CPT/HCPCS: 80053; 83036; 85027 ==

== ENCOUNTER 2024-01-19 10:36 | Inpatient (IN) | payer MEDICARE, MEDICAID, SELFPAY ==
[2024-01-19] VITALS (10 sets, daily range): BP systolic 143–186; BP diastolic 71–95; PULSE 67–92; RESP 16–20; TEMP 36.6–36.8; O2SAT 93–99; BMI 36.9
--- NOTE | 2024-01-19 10:50 | XR_ITS ---
WS: [id number] Left hip, AP and frog-leg views, 01/19/2024 Clinical Data: fall/cannot ambulate Comparison: None. Findings: There is an intertrochanteric fracture of the left hip. The femoral head remains within the acetabulu m. The left pelvis shows no definite fractures. The soft tissues are normal. XR/XR hip LT 2-3V wo/w pel* [id number] Impression: Intertrochanteric fracture of the left hip.
--- NOTE | 2024-01-19 10:50 | XR_ITS ---
WS: [email or web address] Portable AP semiupright chest, 01/19/2024 Clinical Data: fall/probable admission Comparison: None. Findings: No nodules, masses or effusions are seen. The heart is normal. The pulmonary vascularity is not increased. No pneumonia or pneumothorax is seen. There is elevation of the right diaphragm. The aortic arch and descending thoracic aorta show minimal calcification and tortuosity. XR/XR chest 1V portable [id number] Impression: Atherosclerosis.
--- NOTE | 2024-01-19 10:51 | ED_ITS ---
HPI - Extremity Injury (Lower) 2 General: Chief Complaint: Extremity Injury, Lower Stated Complaint: left hip pain Time Seen by Provider: 01/19/24 10:37 Source: patient Mode of arrival: EMS Limitations: no limitations History of Present Illness: Patient is a 78-year-old male presents to ED today with complaint of left hip pain. Patient states he was coming down off of a ladder and missed the last step and fell directly onto his left hip. Patient states he has not been able to walk on the hip since the fall. He denies striking his head or LOC. He is not on anticoagulation. He is not having any back pain. His only physical complaint is left hip pain. PMH significant for HTN (admitting rarely takes his amlodipine), erectile dysfuction on tadalafil prn, and urinary retention with self catheterization. MD complaint: hip injury Onset (ago): hour(s) Place: home Severity: severe Relieving factors: immobilization Exacerbating factors: weight bearing, movement and palpation Context: fall Associated symptoms: Reports inability to bear weight Other symptoms: none Related Data Home Medications Medication Instructions Recorded Confirmed amlodipine 5 mg tablet 5 mg PO DAILY 01/19/24 01/19/24 Previous Rx's Medication Instructions Recorded tadalafil 20 mg tablet 20 mg PO DAILY PRN sexual activity 02/08/23 #20 tabs Allergies Allergy/AdvReac Type Severity Reaction Status Date / Time ketorolac [From Toradol] Allergy Intermediate ADR-Vomitin Verified 08/09/23 08:49 g Review of Systems 2 Eyes: Denies: change in vision, blurry vision, photophobia, eye discharge, floaters or seeing flashes ENMT: Denies: throat pain, odynophagia, ear or mastoid pain, ear discharge, nasal discharge, epistaxis or sinus pain Card: Denies: chest pain, palpitations, lightheadedness, syncope or pre- syncope Resp: Denies: dyspnea or pain on inspiration GI: Denies: abdominal pain : Denies: flank pain or hematuria Musc: Reports: joint pain (L hip) and limited range of motion (L hip); Denies: neck pain, back pain or extremity pain Neuro: Denies: headache(s), numbness in extremities, weakness in extremities, sensory changes or dizziness PFSH ED 2 PFSH: Medical History Erectile dysfunction Urinary retention Hypertension Surgical History No significant past surgical history Family History Father , AT 89 Parkinson disease Mother , AT 82 Kidney failure Social History Smoking and tobacco/nicotine status: former use of tobacco/nicotine Alcohol intake: never Substance/Drug Use: never Marital status: Current occupational status: retired Physical Exam 2 Const: COMMON NORMALS: no acute distress, no limitations, alert and well nourished NUTRITIONAL APPEARANCE: obese ORIENTATION/CONSCIOUSNESS: Yes awake, Yes oriented to person, Yes oriented to place and Yes oriented to time HENMT: COMMON NORMALS: normocephalic and atraumatic HEAD & SCALP: normal to inspection, normocephalic and atraumatic Neck/C-Spine: COMMON NORMALS: full ROM CERVICAL SPINE: No pain with cervical ROM and No Cervical spine tenderness Chest: COMMONS NORMALS: normal inspection of the chest Resp: COMMON NORMALS: normal respiratory effort and clear to auscultation bilaterally AUSCULTATION: clear to auscultation bilaterally Cardio: COMMON NORMALS: regular rate and regular rhythm RATE: regular rate RHYTHM: regular rhythm GI: COMMON NORMALS: Normal to inspection, nondistended, normoactive bowel sounds present, Soft to palpation and non-tender INSPECTION: Yes central obesity PALPATION: Yes Soft to palpation Back/Pelvis: COMMON NORMALS: thoracic and lumbar spine normal to inspection Extremity: COMMON NORMALS: capillary refill normal, no clubbing, cyanosis or edema, no calf tenderness and no pedal edema LEFT LOWER EXTREMITY: Yes hip joint OTHER: pt lying on his R side; refusal to move L hip secondary to pain/discomfort so shortening/rotation is difficult to assess; distal extremity is NV intact; no obvious hip dislocation appreciated; pain seems to be located to lateral L hip Neuro: COMMON NORMALS: moves all extremities, no focal motor deficits and no sensory deficits noted SENSORIUM/ORIENTATION: Yes alert, Yes oriented to person, Yes oriented to place and Yes oriented to time Skin: TRAUMA: no lacerations or abrasions Course 2 Consultations: Consultation #1: Dr. Kuo-will operate tomorrow Consultation #2: Dr. Peralta-accepts hospitalization Vital Signs: Vital signs: Vital Signs Temperature 98.3 F 01/19/24 10:37 Pulse Rate 67 01/19/24 11:34 Respiratory Rate 16 01/19/24 11:34 Blood Pressure 174/87 01/19/24 11:34 Pulse Oximetry 96 01/19/24 11:34 Oxygen Delivery Me thod Room Air 01/19/24 11:34 MDM - Extremity Injury (Lower) Medical Decision Making Patient is a nice 78-year-old male presents to ED today following a fall from a ladder. He missed the last step of the ladder so hide of approximately 1 to 2 feet. He states he landed directly onto the left hip. He has a intertrochanteric fracture of the left hip. Dr. Kuo consulted and will operate tomorrow. Dr. Peralta will except hospitalization. Medical Records I reviewed the patient's medical records. Lab Data I reviewed the patient's lab results. 01/19/24 11:11 01/19/24 11:11 Radiology Impressions Chest X-Ray 01/19/24 10:50 Impression: Atherosclerosis. Hip/Pelvis X-Ray 01/19/24 10:50 Impression: Intertrochanteric fracture of the left hip. Laboratory Results WBC 12.83 10^3/uL (3.29-11.43) H 01/19/24 11:11 RBC 4.61 10^6/uL (3.85-5.65) 01/19/24 11:11 Hgb 14.10 g/dL (11.27-16.99) 01/19/24 11:11 Hct 42.9 % (37-53) 01/19/24 11:11 MCV 93.1 fl (82-101) 01/19/24 11:11 MCH 30.6 pg (27-33) 01/19/24 11:11 MCHC 32.9 g/dL (30-55) 01/19/24 11:11 RDW 13.4 % (12.1-15.1) 01/19/24 11:11 Plt Count 406 10^3/cmm (157-399) H 01/19/24 11:11 MPV 9.2 fL (7.4-10.4) 01/19/24 11:11 Lymph % (Auto) Not Reportable 01/19/24 11:11 [place]on % (Auto) Not Reportable 01/19/24 11:11 Lymph # (Auto) Not Reportable 01/19/24 11:11 [place]on # (Auto) Not Reportable 01/19/24 11:11 Total Counted 100 (0-100) 01/19/24 11:11 Atypical Lymphs % 0.0 % (0-5) 01/19/24 11:11 Absolute Neutrophils 9.9 10^3/cmm (1.4-6.5) H 01/19/24 11:11 Segmented Neutrophils 68 % 01/19/24 11:11 Abs Segm Neuts (Man) 8.7 10/cmm (1.6-7.1) H 01/19/24 11:11 Band Neutrophils 9.0 % 01/19/24 11:11 Abs Band Neuts (Man) 1.2 10^3/cmm (0.0-1.2) 01/19/24 11:11 Absolute Lymphocytes 2.2 10^3/cmm (1.2-3.4) 01/19/24 11:11 Lymphocytes (Manual) 17 % 01/19/24 11:11 Monocytes (Manual) 2.0 % 01/19/24 11:11 Absolute Monocytes 0.3 10^3/cmm (0.1-0.6) 01/19/24 11:11 Eosinophils (Manual) 2 % 01/19/24 11:11 Absolute Eosinophils 0.3 10^3/cmm (0.0-0.7) 01/19/24 11:11 Basophils (Manual) 0.0 % 01/19/24 11:11 Absolute Basophils 0.0 10^3/cmm (0.0-0.2) 01/19/24 11:11 Metamyelocytes 1.0 % 01/19/24 11:11 Myelocytes 1.0 % 01/19/24 11:11 Platelet Estimate Normal (Normal) 01/19/24 11:11 Sodium 134 mmol/L (136-145) L 01/19/24 11:11 Potassium 4.4 mmol/L (3.5-5.1) 01/19/24 11:11 Chloride 100 mmol/L (98-107) 01/19/24 11:11 Carbon Dioxide 15 mmol/L (22-29) L 01/19/24 11:11 Anion Gap 23.4 (5-19) H 01/19/24 11:11 BUN 31 mg/dL (8-23) H 01/19/24 11:11 Creatinine 2.0 mg/dL (0.7-1.2) H 01/19/24 11:11 GFR Calculation Not Reportable 01/19/24 11:11 Glucose 123 mg/dL (65-115) H 01/19/24 11:11 Calculated Osmolality 286 mOsm/kg (285-295) 01/19/24 11:11 Calcium 8.7 mg/dL (8.5-10.5) 01/19/24 11:11 Total Bilirubin 0.4 mg/dL (0.15-1.2) 01/19/24 11:11 AST 18 U/L (0-40) 01/19/24 11:11 ALT 20 U/L (0-41) 01/19/24 11:11 Alkaline Phosphatase 98 U/L (40-130) 01/19/24 11:11 Total Protein 7.3 g/dL (6.6-8.7) 01/19/24 11:11 Albumin 4.3 g/dL (3.5-5.2) 01/19/24 11:11 Globulin 3.0 g/dL (1.3-4.6) 01/19/24 11:11 All radiology interpretation(s) finalized by discharge Discharge Plan Discharge Patient Disposition: Admitted As Inpatient Clinical Impression: Closed intertrochanteric fracture of left hip Condition: Stable Coding Level of Care Code ED Vocal Performer for Titus Parra
--- NOTE | 2024-01-19 11:01 | ECG_ITS ---
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 Measurements Intervals Daphne Rate: 63 P: 50 AR: 185 QRS: 183 QRSD: 161 T: 67 QT: 473 QTc: 486 Interpretive Statements SINUS RHYTHM INDETERMINATE AXIS INTRAVENTRICULAR CONDUCTION DELAY [130+ ms QRS DURATION] Compared to ECG 11/21/2021 17:51:38 Indeterminate axis now present Intraventricular conduction delay now present Sinus bradycardia no longer present Right bundle-branch block no longer present Left anterior fascicular block no longer present Electronically Signed On 01-19-2024 11:29:24 CDT by Santiago Mcqueen M.D. [email or web address]
[2024-01-19 11:17] LABS: Hematocrit 42.9 % (37-53); Mean Corpuscular HGB Conc 32.9 g/dL (30-55); Mean Corpuscular Hemoglobin 30.6 pg (27-33); Mean Corpuscular Volume 93.1 fl (82-101); Mean Platelet Volume 9.2 fL (7.4-10.4); Platelet Count 406 10^3/cmm (157-399); Red Blood Count 4.61 10^6/uL (3.85-5.65); Red Cell Distribution Width 13.4 % (12.1-15.1); White Blood Count 12.83 10^3/uL (3.29-11.43)
[2024-01-19] MEDS: morphine 4 mg/mL SDV 1 mL IVP (11:27)
[2024-01-19] MEDS: ondansetron 2 mg/ML SDV 2 mL 4 MG IVP ×3 (11:27→23:15)
[2024-01-19 11:33] LABS: Alanine Aminotransferase 20 U/L (0-41); Albumin Level 4.3 g/dL (3.5-5.2); Alkaline Phosphatase 98 U/L (40-130); Anion Gap 23.4 (5-19); Aspartate Amino Transferase 18 U/L (0-40); Blood Urea Nitrogen 31 mg/dL (8-23); Calcium 8.7 mg/dL (8.5-10.5); Carbon Dioxide 15 mmol/L (22-29); Chloride 100 mmol/L (98-107); Creatinine Clr Calc Pharmacy 42.5141; Glucose 123 mg/dL (65-115); Osmolality Calculated 286 mOsm/kg (285-295); Potassium 4.4 mmol/L (3.5-5.1); Sodium 134 mmol/L (136-145); Total Bilirubin 0.4 mg/dL (0.15-1.2); Total Protein 7.3 g/dL (6.6-8.7)
[2024-01-19 11:53] LABS: Slide Review Slide Review Perform
[2024-01-19 11:56] LABS: Absolute Eosinophils 0.3 10^3/cmm (0.0-0.7); Absolute Neutrophil 9.9 10^3/cmm (1.4-6.5); Absolute Segmented Neutrophil 8.7 10/cmm (1.6-7.1); Band Neutrophils Absolute 1.2 10^3/cmm (0.0-1.2); Eosinophils 2 %; Lymphocytes 17 %; Monocytes Absolute 0.3 10^3/cmm (0.1-0.6); Platelet Estimate Normal (Normal); Segmented Neutrophils 68 %; Total Cells Counted 100 (0-100)
[2024-01-19 11:57] LABS: Lymphocytes Absolute 2.2 10^3/cmm (1.2-3.4)
[2024-01-19] MEDS: hyDRALAzine 20 mg/mL INJ 1 mL 5 MG IVP (12:08)
[2024-01-19 13:15] LABS: Charge for UA Resulting for Rev
[2024-01-19 13:38] LABS: Bilirubin Urine Negative (Negative); Blood Urine Negative (Negative); Glucose Urine UA Negative (Normal); Ketones Urine Trace (Negative); Leukocyte Esterase Urine 1+ (Negative); Nitrate Urine Positive (Negative); Protein Urine 1+ (Negative); Specific Gravity, Urine 1.012 (1.005-1.030); Urine Appearance Clear (CLEAR); Urine Color Yellow (Yellow); Urobilinogen Urine 0.2 mg/dL (Negative); pH Urine 5.5 (5-7)
[2024-01-19 13:43] LABS: Bacteria Urine None Seen /hpf; Hyaline Casts Urine 3.71 /lpf; RBC Urine 0-2 /hpf (0-2); Squamous Epithelial Cell Urine 0-5 /hpf (0-5); WBC Urine 21-50 /hpf (0-5)
[2024-01-19] MEDS: sodium chloride 0.45% 1,000 ML 125 ML IV (14:10)
[2024-01-19] MEDS: HYDROmorphone 1 mg/mL INJ 1 mL IVP (14:10)
--- NOTE | 2024-01-19 14:52 | P.HP_ITS ---
Providers/Chief Complaint 2 Admitting Physician: Gasper Peralta MD Primary Care Provider: Deniz Up DO Chief Complaint: left hip pain History of Present Illness Neil Lowe is a 78 year old male who missed a step coming down from the ladder fell on the ground. In the ER he was diagnosed with hip fracture. Dr. Kuo consulted. Patient stating that he has never been diagnosed with CHF stating that he has been noticing lower extremity swelling for last 1 month, he had never had any SD or stent placed in his heart. Patient self caths at home for BPH. Does not take any medication other than amlodipine for blood pressure. Review of Systems 2 Const: Denies: fever(s) Eyes: Denies: change in vision ENMT: Denies: throat pain Card: Reports: swelling of feet/ankles; Denies: chest pain Resp: Denies: dyspnea GI: Denies: abdominal pain : Denies: flank pain Medications/Allergies Home Medications Medication Instructions Recorded Confirmed Last Taken Type tadalafil 20 mg tablet 20 mg PO DAILY PRN sexual activity 02/08/23 01/19/24 Unknown Rx #20 tabs amlodipine 5 mg tablet 5 mg PO DAILY 01/19/24 01/19/24 1 Week Ago History ~01/12/24 Allergies Allergy/AdvReac Type Severity Reaction Status Date / Time ketorolac [From Toradol] Allergy Intermediate ADR-Vomitin Verified 08/09/23 08:49 g PFSH Acute 2 PFSH: Medical History Erectile dysfunction Urinary retention Hypertension Surgical History No significant past surgical history Family History Father , AT 89 Parkinson disease Mother , AT 82 Kidney failure Social History Smoking and tobacco/nicotine status: former use of tobacco/nicotine Alcohol intake: never Substance/Drug Use: never Marital status: Current occupational status: retired Vitals/I&O/Wt Last Vital Signs Temp 98.3 F 01/19/24 14:43 Pulse 79 01/19/24 14:43 Resp 18 08/23/24 14:43 BP 143/88 01/19/24 14:43 Pulse Ox 99 01/19/24 14:43 O2 Del Method Room Air 01/19/24 14:11 Weight last 48 hrs Weight 127.006 kg Physical Exam 2 Narrative: Signs of fluid overload present Low extremity swelling No acute chest pain S1, S2 Awake and alert Nonfocal neuroexam Limited range of motion Pleasant cough Unkept appearance Morbid obese male Canela catheter in place Hypertensive Urinary Catheter Management: Canela: Cath Placed During This Visit: yes Urinary Catheter Date of Insertion: 01/19/24 Urinary Catheter Time of Insertion: 12:45 Data 01/19/24 11:11 01/19/24 11:11 A&P Assessment and plan (1) New onset of congestive heart failure: (2) Essential hypertension: (3) Urinary retention: (4) Closed intertrochanteric fracture of left hip: Qualifiers: Encounter type: initial encounter Fracture alignment: displaced Qualified Code(s): S72.142A - Displaced intertrochanteric fracture of left femur, initial encounter for closed fracture Plan hip fracture New onset CHF N.p.o. after midnight Dr. Kuo consulted Plan is to get echo before surgery Patient seen show lower extremity swelling Start IV Lasix Will start GI cocktail for GERD Patient self caths at home Full code Cardiac diet for now For hypertension we may need to switch amlodipine to lisinopril, hydrochlorothiazide along metoprolol and avoid amlodipine because of lower extremity edema Will use hydralazine for as needed's basis N.p.o. after midnight Attestations 2 Medical Necessity Statement*: More than 2 midnights anticipated Diagnoses New onset of congestive heart failure I50.9 Essential hypertension I10 Urinary retention R33.9 Closed intertrochanteric fracture of left hip S72.142A Encounter type: initial encounter Fracture alignment: displaced
[2024-01-19 14:53] LABS: Add Urine Culture? Yes
[2024-01-19 15:39] LABS: Vitamin B12 656 pg/mL (232-1245)
[2024-01-19] MEDS: sodium chloride 0.9% 1,000 ML 75 ML IV (15:46)
[2024-01-19] MEDS: lidocaine 2% viscous 15 ML, aluminum-mag hydrox-simethicon 30 ML, sucralfate oral liq 1 GM PO (18:02)
[2024-01-19] MEDS: HYDROmorphone 1 mg/mL INJ 1 mL 0.4 MG IVP ×2 (18:08→23:15)
[2024-01-19] MEDS: FUROsemide 10 mg/mL SDV 2mL 20 MG IVP (18:15)
[2024-01-19] MEDS: metoclopramide 5 mg/mL SDV 2 mL IVP (18:33)
--- NOTE | 2024-01-19 21:29 | PC.NURSE ---
Patient is still currently laying in their bed on top of their clothes that was cut off during their visit in the ER. Due to residents pain and nausea that nursing staff is activivly working on getting under control, patient refused to allow staff to attempt to remove clothing from underneath at this moment in time. Will try again in a little bit.
--- NOTE | 2024-01-19 22:19 | CTR_ITS ---
PROCEDURE INFORMATION: Exam: CT Abdomen And Pelvis Without Contrast Exam date and time: 01/19/2024 10:41 PM Age: 78 years old Clinical indication: Bloating and nausea and vomiting; Prior surgery; Surgery date: 6+ months; Surgery type: RT hip; Patient HX: Abd distention with coffee ground emesis. Acute left hip fracture from a fall earlier today. ; Additional info: Coffee ground emesis, abdominal distension, nausea and vomit TECHNIQUE: Imaging protocol: Computed tomography of the abdomen and pelvis without contrast. Radiation optimization: All CT scans at this facility use at least one of these dose optimization techniques: automated exposure control; mA and/or kV adjustment per patient size (includes targeted exams where dose is matched to clinical indication); or iterative reconstruction. COMPARISON: CT pelvis wo con [id number] 11/22/2021 9:16 AM RADIATION DOSE METRICS: Total DLP (mGy-cm): 1216.59 FINDINGS: Lungs: Small focal consolidation in the posterior basal right lower lobe. Calcified granuloma in the left lower lobe. Coronary arteries: Coronary artery calcifications. Normal heart size. Diaphragm: Small sliding hiatal hernia. Next the stomach is markedly distended with an air-fluid level. Stable fat containing Bochdalek hernia on the right. Liver: Punctate hepatic calcifications. Gallbladder and biliary ducts: Normal. No calcified stones. No ductal dilation. Pancreas: Diffuse fatty atrophy of the pancreas. Spleen: Splenic calcifications. Adrenal glands: Normal. No mass. Kidneys and ureters: Normal. No hydronephrosis. Stomach and bowel: Scattered colonic diverticula without acute diverticulitis. Multiple prominent gas-filled loops of small bowel are seen throughout the abdomen. No definite transition point. Mild gaseous distension of the transverse colon. Appendix: No evidence of appendicitis. Intraperitoneal space: Unremarkable. No free air. No significant fluid collection. Vasculature: Moderate atherosclerotic calcifications of the abdominal aorta and its branch vessels. No abdominal aortic aneurysm. Lymph nodes: Unremarkable. No enlarged lymph nodes. Urinary bladder: Canela catheter is in place within the urinary bladder. The urinary bladder is decompressed. Reproductive: The prostate is enlarged. Bones/joints: Partially visualized right femoral intramedullary nail. Degenerative changes of the spine. Comminuted left intertrochanteric femur fracture again noted. No dislocation. Soft tissues: Small fat containing inguinal hernias bilaterally. CT/CT abdomen pelvis wo con [id number] IMPRESSION: 1. Multiple prominent gas-filled loops of small bowel throughout the abdomen without definite transition point. Findings may represent adynamic ileus. Low-grade small bowel obstruction is possible but considered less likely. Recommend radiographic follow-up. 2. Marked gastric distension with air-fluid level. Patient may benefit from nasogastric decompression. 3. Acute comminuted left intertrochanteric femur fracture. 4. Small hiatal hernia. 5. Colonic diverticulosis. 6. Prostatomegaly. Correlate with PSA levels.
[2024-01-19] MEDS: pantoprazole 40 mg SDV 80 MG IVP (23:15)
[2024-01-19 23:30] LABS: Hematocrit 42.7 % (37-53)
[2024-01-20] VITALS (20 sets, daily range): BP systolic 139–163; BP diastolic 68–93; PULSE 65–97; RESP 12–20; TEMP 36.2–37.1; O2SAT 88–98
[2024-01-20 00:18] LABS: PSA Screen - Urology 5.87 ng/mL (0-4)
[2024-01-20] MEDS: metoclopramide 5 mg/mL SDV 2 mL IVP (02:05)
[2024-01-20 04:12] LABS: Basophils % 0.2 %; Hematocrit 42.8 % (37-53); Lymphocytes # 0.6 10^3/uL (0.8-4.8); Lymphocytes % 3.6 %; Mean Corpuscular HGB Conc 33.6 g/dL (30-55); Mean Corpuscular Hemoglobin 30.3 pg (27-33); Mean Corpuscular Volume 89.9 fl (82-101); Mean Platelet Volume 9.7 fL (7.4-10.4); Monocytes # 0.6 10^3/uL (0.2-0.9); Monocytes % 3.7 %; Neutrophils # 14.24 10^3/uL (1.8-7.7); Neutrophils % 90.3 %; Nucleated Red Blood Cells % 0 %; Platelet Count 366 10^3/cmm (157-399); Red Blood Count 4.76 10^6/uL (3.85-5.65); Red Cell Distribution Width 13.5 % (12.1-15.1); White Blood Count 15.77 10^3/uL (3.29-11.43)
[2024-01-20 04:48] LABS: Blood Urea Nitrogen 31 mg/dL (8-23); Calcium 8.7 mg/dL (8.5-10.5); Carbon Dioxide 20 mmol/L (22-29); Chloride 98 mmol/L (98-107); Creatinine Clr Calc Pharmacy 42.2719; Glucose 171 mg/dL (65-115); Magnesium 2.1 mg/dL (1.7-2.3); Osmolality Calculated 295 mOsm/kg (285-295); Sodium 137 mmol/L (136-145)
[2024-01-20] MEDS: ondansetron 2 mg/ML SDV 2 mL 4 MG IVP (06:22)
--- NOTE | 2024-01-20 07:56 | P.CONIM_ITS ---
Providers/Reason For Consult 2 Consulting Physician/Specialty*: Dr. Alfred Lai DO/General Surgery Reason for Consult*: Hematemesis Attending Physician: Glynn Arroyo MD Primary Care Provider: Deniz Up DO History of Present Illness History of Present Illness Neil Lowe is a 78 year old male fell coming down from a ladder yesterday and broke his hip. He then presented to the ER. While in the hospital he started becoming nauseous and then having repeated vomiting. That vomiting turned into hematemesis. He reports that he was feeling bloated prior to the nausea. He does report left hip pain that does not radiate. Palpation makes the pain worse. Movement of his left lower extremity makes pain worse. Not makes pain better. He denies any abdominal pain. CT ab pelvis shows ileus with gaseous distention of the stomach Review of Systems 2 General: Reports: 10 or more systems reviewed and unremarkable except in HPI and below Medications/Allergies Home Medications Medication Instructions Recorded Confirmed Last Taken Type tadalafil 20 mg tablet 20 mg PO DAILY PRN sexual activity 02/08/23 01/19/24 Unknown Rx #20 tabs amlodipine 5 mg tablet 5 mg PO DAILY 01/19/24 01/19/24 1 Week Ago History ~01/12/24 Allergies Allergy/AdvReac Type Severity Reaction Status Date / Time ketorolac [From Toradol] Allergy Intermediate ADR-Vomitin Verified 08/09/23 08:49 g Current Medications Generic Name Dose Route Start Last Admin Trade Name Freq PRN Reason Stop Dose Admin Furosemide 20 mg 01/19/24 18:00 01/19/24 18:15 Furosemide 10 Mg/Ml Sdv 2ml IVP 20 mg Q24H RAZA Administration Hydromorphone HCl 0.4 mg 01/19/24 17:18 01/19/24 23:15 Hydromorphone 1 Mg/Ml Inj 1 Ml IVP 0.4 mg Q4H PRN Administration PAIN Metoclopramide HCl 5 mg 01/19/24 18:24 01/20/24 02:05 Metoclopramide 5 Mg/Ml Sdv 2 Ml IVP 5 mg Q6H PRN Administration NAUSEA AND VOMITING Ondansetron HCl 4 mg 01/19/24 14:52 01/20/24 06:22 Ondansetron 2 Mg/Ml Sdv 2 Ml IVP 4 mg Q6H PRN Administration NAUSEA AND VOMITING Pantoprazole Sodium 40 mg 01/20/24 00:30 01/20/24 00:54 Pantoprazole 40 Mg Sdv IVP Not Given Q12H RAZA PFSH Acute 2 PFSH: Medical History Erectile dysfunction Urinary retention Hypertension Surgical History No significant past surgical history Family History Father , AT 89 Parkinson disease Mother , AT 82 Kidney failure Social History Smoking and tobacco/nicotine status: former use of tobacco/nicotine Alcohol intake: never Substance/Drug Use: never Marital status: Current occupational status: retired Vitals/I&O/Wt Last Vital Signs Temp 97.7 F 01/20/24 03:59 Pulse 97 01/20/24 03:59 Resp 20 H 01/20/24 03:59 BP 157/81 01/20/24 03:59 Pulse Ox 88 L 01/20/24 03:59 O2 Del Method Room Air 01/20/24 03:59 01/19/24 01/20/24 01/20/24 22:59 06:59 14:59 Intake Total 127.083 / 127.083 Output Total 1999 400 / 2400 Balance -1872.917 / -1872.917 -400 / -2272.917 Weight last 48 hrs Weight 276 lb 14.4 oz Weight 279 lb Weight 280 lb Physical Exam 2 Narrative: General : Patient is well developed , no acute distress, oriented x3 Head : Normal cephalic, a-traumatic. Ears : Pinnae and external canal are normal. Hearing is normal. Eyes : PERRLA, Sclera and injection are normal. No conjunctival discharge. Nose : Mucous membranes are without erythema. Throat : buccal mucosa is normal, gums are without significant recession or hypertrophy. Lungs : Equal chest rise bilaterally, no use of accessory muscles, trachea is midline. Cor : Rate and rhythm are normal. Abdomen : Soft, distended, NT, no g/r/m Extremities : No edema, no cyanosis or clubbing, dorsalis pedis pulses are present bilaterally, non-tender to palpation of calves. Upper extremities are normal bilaterally. Back : non-tender to palpation, no CVA tenderness. Neuro : CN II - XII intact, Upper and lower extremities have equal and full strength Urinary Catheter Management: Canela: Cath Placed During This Visit: yes Reason for Continuing Indwelling Catheter: Other Urinary Catheter Date of Insertion: 01/19/24 Urinary Catheter Time of Insertion: 12:45 Data 01/20/24 03:11 01/20/24 03:11 A&P Assessment and plan (1) Hematemesis: (2) Ileus: (3) Closed intertrochanteric fracture of left hip: Qualifiers: Encounter type: initial encounter Fracture alignment: displaced Qualified Code(s): S72.142A - Displaced intertrochanteric fracture of left femur, initial encounter for closed fracture Plan EGD The risks and benefits of the procedure, including bleeding, infection, intestinal perforation requiring surgery, missed lesion were explained to the patient. The patient is understanding of the risks and wishes to proceed. Coding Level of Care Code 10288 Diagnoses Hematemesis K92.0 Ileus K56.7 Closed intertrochanteric fracture of left hip S72.142A Encounter type: initial encounter Fracture alignment: displaced
--- NOTE | 2024-01-20 08:00 | XR_ITS ---
WS: [id number] Exam: XR hip LT 2-3V wo/w pel* [id number] Date/Time of Exam: 01/20/2024 8:00 AM Reason For Exam: LT TFN; OR PICS Intraoperative C-arm images are submitted for evaluation. An intramedullary nelia and femoral neck screw stabilize a comminuted intertrochanteric fracture of the LEFT hip in satisfactory alignment for healing. XR/XR hip LT 2-3V wo/w pel* [id number] IMPRESSION: 1. Satisfactory ORIF of an intertrochanteric fracture of the LEFT hip.
--- NOTE | 2024-01-20 08:09 | P.CONIM_ITS ---
Providers/Reason For Consult 2 Consulting Physician/Specialty*: Hospitalist Reason for Consult*: Left intertrochanteric hip fracture Attending Physician: Glynn Arroyo MD Primary Care Provider: Deniz Up DO History of Present Illness History of Present Illness Neil Lowe is a 78 year old male fell off a ladder yesterday. Planning to take to the OR this morning. Patient had episode of coffee-ground emesis. At this point Dr. Lai was in to do an EGD first then NG to placement. Then we will plan to fix his hip. Review of Systems 2 Const: Denies: fever(s) Eyes: Denies: change in vision ENMT: Denies: throat pain Card: Reports: swelling of feet/ankles; Denies: chest pain Resp: Denies: dyspnea GI: Denies: abdominal pain : Denies: flank pain Medications/Allergies Home Medications Medication Instructions Recorded Confirmed Last Taken Type tadalafil 20 mg tablet 20 mg PO DAILY PRN sexual activity 02/08/23 01/19/24 Unknown Rx #20 tabs amlodipine 5 mg tablet 5 mg PO DAILY 01/19/24 01/19/24 1 Week Ago History ~01/12/24 Allergies Allergy/AdvReac Type Severity Reaction Status Date / Time ketorolac [From Toradol] Allergy Intermediate ADR-Vomitin Verified 08/09/23 08:49 g Current Medications Generic Name Dose Route Start Last Admin Trade Name Freq PRN Reason Stop Dose Admin Furosemide 20 mg 01/19/24 18:00 01/19/24 18:15 Furosemide 10 Mg/Ml Sdv 2ml IVP 20 mg Q24H RAZA Administration Hydromorphone HCl 0.4 mg 01/19/24 17:18 01/19/24 23:15 Hydromorphone 1 Mg/Ml Inj 1 Ml IVP 0.4 mg Q4H PRN Administration PAIN Metoclopramide HCl 5 mg 01/19/24 18:24 01/20/24 02:05 Metoclopramide 5 Mg/Ml Sdv 2 Ml IVP 5 mg Q6H PRN Administration NAUSEA AND VOMITING Ondansetron HCl 4 mg 01/19/24 14:52 01/20/24 06:22 Ondansetron 2 Mg/Ml Sdv 2 Ml IVP 4 mg Q6H PRN Administration NAUSEA AND VOMITING Pantoprazole Sodium 40 mg 01/20/24 00:30 01/20/24 00:54 Pantoprazole 40 Mg Sdv IVP Not Given Q12H RAZA PFSH Acute 2 PFSH: Medical History Erectile dysfunction Urinary retention Hypertension Surgical History No significant past surgical history Family History Father , AT 89 Parkinson disease Mother , AT 82 Kidney failure Social History Smoking and tobacco/nicotine status: former use of tobacco/nicotine Alcohol intake: never Substance/Drug Use: never Marital status: Current occupational status: retired Vitals/I&O/Wt Last Vital Signs Temp 97.1 F L 01/20/24 08:00 Pulse 86 01/20/24 08:00 Resp 18 01/20/24 08:00 BP 146/93 01/20/24 08:00 Pulse Ox 97 01/20/24 08:00 O2 Del Method Nasal Cannula 01/20/24 08:00 O2 Flow Rate 4 01/20/24 08:00 01/19/24 01/20/24 01/20/24 22:59 06:59 14:59 Intake Total 127.083 / 203.673 3485 / 1000 Output Total 1999 / 1999 400 / 2400 Balance -1872.917 / -1872.917 -400 / -2272.917 1000 / 1000 Weight last 48 hrs Weight 276 lb 14.4 oz Weight 279 lb Weight 280 lb Physical Exam 2 Narrative: Patient is in bed nauseous has an emesis basin in front of him. Left hip is swollen patient is moving his feet. Urinary Catheter Management: Canela: Cath Placed During This Visit: yes Reason for Continuing Indwelling Catheter: Other Urinary Catheter Date of Insertion: 01/19/24 Urinary Catheter Time of Insertion: 12:45 Data 01/20/24 03:11 01/20/24 03:11 A&P Assessment and plan (1) Closed intertrochanteric fracture of left hip: Hip nail today Qualifiers: Encounter type: initial encounter Fracture alignment: displaced Qualified Code(s): S72.142A - Displaced intertrochanteric fracture of left femur, initial encounter for closed fracture Coding Level of Care Code Acute Code for Chg Fwd Diagnoses Closed intertrochanteric fracture of left hip S72.142A Encounter type: initial encounter Fracture alignment: displaced
--- NOTE | 2024-01-20 08:31 | ANES.PREANE2 ---
Pre-Anesthetic Assessment Height/Weight: Height 1.85 m Weight 125.6 kg Temp Pulse Resp BP Pulse Ox O2 Del Method O2 Flow Rate 97.5 F L 87 19 H 163/83 92 Nasal Cannula 4 01/20/24 08:00 01/20/24 08:00 01/20/24 08:00 01/20/24 08:00 01/20/24 08:00 01/20/24 08:00 01/20/24 08:00 Operation Date: 01/20/24 08:00 Proposed Procedures p Trochanteric Femoral Nail(Left) - Rahul H Shiela, DO Was Beta Zaina taken within 24 hours: N/A Was Clonidine taken within 24 hours: N/A Social No alcohol and No tobacco (previous smoker) Exam alert, oriented x 3, clear to auscultation bilaterally and regular rate & rhythm Airway Submandibular: within normal limits Cervical ROM: within normal limits Mallampati: Class II Dentition: chipped Pulmonary None reported CV/HEM Hypertension Chronic urinary retention with daily self cath GI previous UGI bleed with torodol Anesthetic Plan ASA status: 4E Anesthesia: General (RSI) Medications/Allergies Home Medications Medication Instructions Recorded Confirmed Last Taken Type tadalafil 20 mg tablet 20 mg PO DAILY PRN sexual activity 02/08/23 01/19/24 Unknown Rx #20 tabs amlodipine 5 mg tablet 5 mg PO DAILY 01/19/24 01/19/24 1 Week Ago History ~01/12/24 Allergies Allergy/AdvReac Type Severity Reaction Status Date / Time ketorolac [From Toradol] Allergy Intermediate ADR-Vomitin Verified 08/09/23 08:49 g Current Medications Generic Name Dose Route Start Last Admin Trade Name Freq PRN Reason Stop Dose Admin Furosemide 20 mg 01/19/24 18:00 01/19/24 18:15 Furosemide 10 Mg/Ml Sdv 2ml IVP 20 mg Q24H RAZA Administration Hydromorphone HCl 0.4 mg 01/19/24 17:18 01/19/24 23:15 Hydromorphone 1 Mg/Ml Inj 1 Ml IVP 0.4 mg Q4H PRN Administration PAIN Metoclopramide HCl 5 mg 01/19/24 18:24 01/20/24 02:05 Metoclopramide 5 Mg/Ml Sdv 2 Ml IVP 5 mg Q6H PRN Administration NAUSEA AND VOMITING Ondansetron HCl 4 mg 01/19/24 14:52 01/20/24 06:22 Ondansetron 2 Mg/Ml Sdv 2 Ml IVP 4 mg Q6H PRN Administration NAUSEA AND VOMITING Pantoprazole Sodium 40 mg 01/20/24 00:30 01/20/24 00:54 Pantoprazole 40 Mg Sdv IVP Not Given Q12H RAZA PFSH Anesthesia Medical History Erectile dysfunction Urinary retention Hypertension Surgical History No significant past surgical history Family History Father , AT 89 Parkinson disease Mother , AT 82 Kidney failure Social History Smoking and tobacco/nicotine status: former use of tobacco/nicotine Alcohol intake: never Substance/Drug Use: never Marital status: Current occupational status: retired Data Anesthesia 01/20/24 03:11 01/20/24 03:11 Short CBC 01/19/24 01/19/24 01/20/24 Range/Units 11:11 23:13 03:11 WBC 12.83 H 15.77 H (3.29-11.43) 10^3/uL Hgb 14.10 14.50 14.40 (11.27-16.99) g/dL Hct 42.9 42.7 42.8 (37-53) % MCV 93.1 89.9 (82-101) fl Plt Count 406 H 366 (157-399) 10^3/cmm Neut % (Auto) 90.3 % Neut # (Auto) 14.24 H (1.8-7.7) 10^3/uL BMP 01/19/24 01/20/24 11:11 03:11 Sodium 134 L 137 Potassium 4.4 4.0 Chloride 100 98 Carbon Dioxide 15 L 20 L BUN 31 H 31 H Creatinine 2.0 H 2.0 H Glucose 123 H 171 H Calcium 8.7 8.7 Liver Function 01/19/24 Range/Units 11:11 Total Bilirubin 0.4 (0.15-1.2) mg/dL AST 18 (0-40) U/L ALT 20 (0-41) U/L Alkaline Phosphatase 98 (40-130) U/L Albumin 4.3 (3.5-5.2) g/dL Urine 01/19/24 Range/Units 13:04 Urine Color Yellow (Yellow) Urine Appearance Clear (CLEAR) Urine pH 5.5 (5-7) Ur Specific [place] 1.012 (1.005-1.030) Urine Protein 1+ A (Negative) Urine Glucose (UA) Negative (Normal) Urine Ketones Trace (Negative) Urine Nitrate Positive A (Negative) Urine Bilirubin Negative (Negative) Ur Leukocyte Esterase 1+ A (Negative) Urine RBC 0-2 (0-2) /hpf Urine WBC 21-50 H (0-5) /hpf Cardiac Studies: No Data to Display
--- NOTE | 2024-01-20 08:36 | ANES.PREANE2 ---
Pre-Anesthetic Assessment Height/Weight: Height 1.85 m Weight 125.6 kg Temp Pulse Resp BP Pulse Ox O2 Del Method O2 Flow Rate 97.5 F L 87 19 H 163/83 92 Nasal Cannula 4 01/20/24 08:00 01/20/24 08:00 01/20/24 08:00 01/20/24 08:00 01/20/24 08:00 01/20/24 08:00 01/20/24 08:00 Operation Date: 01/20/24 08:00 Proposed Procedures p Trochanteric Femoral Nail(Left) - Rahul H Shiela, DO Was Beta Zaina taken within 24 hours: N/A Was Clonidine taken within 24 hours: N/A Social No alcohol and No tobacco (previous smoker) Exam alert, oriented x 3, clear to auscultation bilaterally and regular rate & rhythm Airway Submandibular: within normal limits Cervical ROM: within normal limits Mallampati: Class II Dentition: chipped Pulmonary None reported CV/HEM Hypertension Chronic urinary retention with daily self cath GI previous UGI bleed with torodol; currently with active coffee grounds emesis and abdominal distension (hypoactive BS) Anesthetic Plan ASA status: 4E Anesthesia: General (RSI) Other: Disc risks associated with acute GI symptoms with surgeon and ortho and family. Post op vent also disc. Medications/Allergies Home Medications Medication Instructions Recorded Confirmed Last Taken Type tadalafil 20 mg tablet 20 mg PO DAILY PRN sexual activity 02/08/23 01/19/24 Unknown Rx #20 tabs amlodipine 5 mg tablet 5 mg PO DAILY 01/19/24 01/19/24 1 Week Ago History ~01/12/24 Allergies Allergy/AdvReac Type Severity Reaction Status Date / Time ketorolac [From Toradol] Allergy Intermediate ADR-Vomitin Verified 08/09/23 08:49 g Current Medications Generic Name Dose Route Start Last Admin Trade Name Freq PRN Reason Stop Dose Admin Furosemide 20 mg 01/19/24 18:00 01/19/24 18:15 Furosemide 10 Mg/Ml Sdv 2ml IVP 20 mg Q24H RAZA Administration Hydromorphone HCl 0.4 mg 01/19/24 17:18 01/19/24 23:15 Hydromorphone 1 Mg/Ml Inj 1 Ml IVP 0.4 mg Q4H PRN Administration PAIN Metoclopramide HCl 5 mg 01/19/24 18:24 01/20/24 02:05 Metoclopramide 5 Mg/Ml Sdv 2 Ml IVP 5 mg Q6H PRN Administration NAUSEA AND VOMITING Ondansetron HCl 4 mg 01/19/24 14:52 01/20/24 06:22 Ondansetron 2 Mg/Ml Sdv 2 Ml IVP 4 mg Q6H PRN Administration NAUSEA AND VOMITING Pantoprazole Sodium 40 mg 01/20/24 00:30 01/20/24 00:54 Pantoprazole 40 Mg Sdv IVP Not Given Q12H [facility] Anesthesia Medical History Erectile dysfunction Urinary retention Hypertension Surgical History No significant past surgical history Family History Father , AT 89 Parkinson disease Mother , AT 82 Kidney failure Social History Smoking and tobacco/nicotine status: former use of tobacco/nicotine Alcohol intake: never Substance/Drug Use: never Marital status: Current occupational status: retired Data Anesthesia 01/20/24 03:11 01/20/24 03:11 Short CBC 01/19/24 01/19/24 01/20/24 Range/Units 11:11 23:13 03:11 WBC 12.83 H 15.77 H (3.29-11.43) 10^3/uL Hgb 14.10 14.50 14.40 (11.27-16.99) g/dL Hct 42.9 42.7 42.8 (37-53) % MCV 93.1 89.9 (82-101) fl Plt Count 406 H 366 (157-399) 10^3/cmm Neut % (Auto) 90.3 % Neut # (Auto) 14.24 H (1.8-7.7) 10^3/uL BMP 01/19/24 01/20/24 11:11 03:11 Sodium 134 L 137 Potassium 4.4 4.0 Chloride 100 98 Carbon Dioxide 15 L 20 L BUN 31 H 31 H Creatinine 2.0 H 2.0 H Glucose 123 H 171 H Calcium 8.7 8.7 Liver Function 01/19/24 Range/Units 11:11 Total Bilirubin 0.4 (0.15-1.2) mg/dL AST 18 (0-40) U/L ALT 20 (0-41) U/L Alkaline Phosphatase 98 (40-130) U/L Albumin 4.3 (3.5-5.2) g/dL Urine 01/19/24 Range/Units 13:04 Urine Color Yellow (Yellow) Urine Appearance Clear (CLEAR) Urine pH 5.5 (5-7) Ur Specific [place] 1.012 (1.005-1.030) Urine Protein 1+ A (Negative) Urine Glucose (UA) Negative (Normal) Urine Ketones Trace (Negative) Urine Nitrate Positive A (Negative) Urine Bilirubin Negative (Negative) Ur Leukocyte Esterase 1+ A (Negative) Urine RBC 0-2 (0-2) /hpf Urine WBC 21-50 H (0-5) /hpf Cardiac Studies: No Data to Display
--- NOTE | 2024-01-20 08:36 | PM.OP ---
Operative Report Date of procedure: January 20, 2024 Pre-op diagnosis: Hematemesis Ileus Post-op diagnosis: Severe esophagitis Ileus Procedure done: EGD Nasogastric tube placement Implants: Nasogastric tube Specimens removed/disposition: None Surgeon: Alfred Lai DO Anesthesia: General Estimated blood loss (mL): 0 Complications: None apparent Brief History: This very pleasant 78-year-old gentleman who fell off a ladder and broke his left hip today. Afterwards he developed gaseous distention of his stomach and then nausea and vomiting. That vomiting turned into hematemesis. There was concern about placing an NG tube due to possible Lizette-Kennedy tear. Esophagogastroduodenoscopy with placement of NG tube was indicated. The risks and benefits were explained and documented. Procedure: Patient was wheeled operative room and remained on the hospital bed in the supine position. General endotracheal intubation was achieved by department anesthesia. A timeout was performed. All present were in agreement. The endoscope was then placed in the patient's mouth and down his esophagus into his stomach and then into his duodenum as far as the second portion of the duodenum. Duodenum and stomach were within normal limits other than gaseous distention and somewhat bloody chyme. There is severe esophagitis, almost ulcerated, but no esophageal tear. No biopsies were taken so as to not increase bleeding. I then placed a nasogastric tube under guidance of the endoscope down into the pylorus. This was secured in place at the patient's nose. Endoscope was removed. Patient tolerated procedure well
[2024-01-20] MEDS: ceFAZolin 3,000 MG in sodium chloride 0.9% (plus) 100 ML 200 MG IV (08:51)
--- NOTE | 2024-01-20 09:24 | PC.NURSE ---
transported from OR 2 to OR 1 at 0851.
--- NOTE | 2024-01-20 10:02 | PM.OP ---
Operative Report Date of procedure: January 20, 2024 Pre-op diagnosis: Left intertrochanteric hip fracture Post-op diagnosis: same Procedure done: Left hip nail Surgeon: Rahul Kuo DO Estimated blood loss (mL): 50 Procedure: Left hip nail Patient brought the operative suite after undergoing anesthesia was placed in supine position. All his impingement well-padded. Patient's prepped draped sterile fashion. Skin incision made over the proximal hip. Starting point was made the tip of greater trochanter. Opening reamer was inserted. Followed by placement of the nail this with Arthrex nail. Was nail was in appropriate position then pin for the lag screw was placed in the center center position in the femoral head. This was drilled and a lag screw was placed. The hip was compressed. And locked into position. Next tension was brought to placing the distal locking screw. This was placed and measured to be 40 mm screw. AP lateral fluoroscopy showed the hardware and fracture in good position. Wounds were irrigated and closed with Vicryl and bentley. Sterile dressings were applied patient transferred to the PACU in stable conditions.
[2024-01-20] MEDS: HYDROmorphone 1 mg/mL INJ 1 mL 0.5 MG IVP (10:28)
[2024-01-20] MEDS: acetaminophen 1,000 MG/100 ML PIGGYBACK 400 MG IV (10:29)
[2024-01-20] MEDS: sennosides-docusate Tablet 1 TAB PO (12:46)
[2024-01-20] MEDS: amlodipine 5 mg Tablet PO (12:46)
[2024-01-20] MEDS: pantoprazole 40 mg SDV IVP (12:46)
--- NOTE | 2024-01-20 14:53 | PM.PN ---
Subjective Subjective: Patient seen postoperatively. He reports his pain is well-controlled. Denies nausea, vomiting, abdominal pain, or chills. Discussed plan of care. Medications: Reviewed: Yes Vitals/I&O/Wt Last Vital Signs Temp 98.1 F 01/20/24 11:55 Pulse 75 01/20/24 13:55 Resp 18 01/20/24 13:55 BP 157/75 01/20/24 13:55 Pulse Ox 95 01/20/24 13:55 O2 Del Method Nasal Cannula 01/20/24 13:55 O2 Flow Rate 2 01/20/24 12:30 01/19/24 01/20/24 01/20/24 22:59 06:59 14:59 Intake Total 127.083 / 954.308 7379 / 1200 Output Total 1999 / 1999 400 / 2400 400 / 400 Balance -1872.917 / -1872.917 -400 / -2272.917 800 / 800 Weight last 48 hrs Weight 125.6 kg Weight 126.552 kg Weight 127.006 kg Physical Exam Narrative: General: Patient is awake. Appears ill but very pleasant. Head: Normocephalic. Atraumatic. EOM intact. NG tube present. Neck: No JVD. Cardiovascular: RRR. No gallops. No murmurs. Lungs: Breath sounds are slightly diminished at bilateral bases, no use of accessory muscles, no crackles or wheezes. Skin: No jaundice. No rashes. Abdomen: Abdomen is slightly distended. Hypoactive bowel sounds. No guarding. Genito Urinary: Genital exam not performed since complaints not related. Rectal: Rectal exam not performed since no symptoms indicated blood loss. Extremities: No cyanosis or clubbing. Musculoskeletal: No erythematous joints. Neurological: Moves all 4 extremities. No myoclonus. Urinary Catheter Management: Canela: Cath Placed During This Visit: yes Reason for Continuing Indwelling Catheter: Other Urinary Catheter Date of Insertion: 01/19/24 Urinary Catheter Time of Insertion: 12:45 Data 01/20/24 03:11 01/20/24 03:11 Micro: Microbiology 01/19/24 13:04 Urine Culture - Preliminary Urine,Clean Catch Gram Negative Rods A&P Assessment and plan (1) Closed intertrochanteric fracture of left hip: Orthopedic surgery consulted and following Status post surgery this morning PT and OT Pain control DVT prophylaxis when okay with surgery Qualifiers: Encounter type: initial encounter Fracture alignment: displaced Qualified Code(s): S72.142A - Displaced intertrochanteric fracture of left femur, initial encounter for closed fracture (2) Ileus: Imaging reviewed General Surgery following Status post NG tube placement this morning Serial exams Monitor electrolytes (3) Urinary tract infection: Urinalysis reviewed, consistent with UTI Follow urine culture Start antibiotics (4) New onset of congestive heart failure: Suspected new CHF Will need to obtain routine echo Discontinue Lasix due to ileus Strict I's and O's Daily weights (5) Essential hypertension: Continue Norvasc Hydralazine as needed (6) Chronic kidney disease: Chronic kidney disease, suspected stage III Renally dose medications Avoid nephrotoxins Plan DVT prophylaxis: SCD CODE STATUS: Full code Attestations Medical Necessity Statement*: Patient presents with hip fracture requiring surgery this morning as well as ileus requiring NG tube and bowel rest for which he continues to require ongoing hospitalization for care. Coding Level of Care Code Acute Code for [facility] Fwd Diagnoses Closed intertrochanteric fracture of left hip S72.142A Encounter type: initial encounter Fracture alignment: displaced Ileus K56.7 Urinary tract infection N39.0 New onset of congestive heart failure I50.9 Essential hypertension I10 Chronic kidney disease N18.9
[2024-01-20] MEDS: ceFAZolin 3,000 MG in sodium chloride 0.9% (100 ml) 100 ML 200 MG IV (16:14)
[2024-01-20] MEDS: HYDROmorphone 1 mg/mL INJ 1 mL 0.4 MG IVP (19:42)
[2024-01-21] VITALS (10 sets, daily range): BP systolic 101–145; BP diastolic 67–76; PULSE 68–81; RESP 15–18; TEMP 36.4–36.9; O2SAT 91–96; BMI 36.3
[2024-01-21] MEDS: ceFAZolin 3,000 MG in sodium chloride 0.9% (100 ml) 100 ML 200 MG IV ×2 (00:08→10:31)
[2024-01-21] MEDS: HYDROmorphone 1 mg/mL INJ 1 mL 0.4 MG IVP ×2 (03:21→10:34)
[2024-01-21 04:50] LABS: Basophils % 0.2 %; Eosinophils % 0.1 %; Hematocrit 37.3 % (37-53); Lymphocytes # 0.8 10^3/uL (0.8-4.8); Lymphocytes % 4.4 %; Mean Corpuscular HGB Conc 32.7 g/dL (30-55); Mean Corpuscular Hemoglobin 30.7 pg (27-33); Mean Platelet Volume 10.1 fL (7.4-10.4); Monocytes # 0.9 10^3/uL (0.2-0.9); Monocytes % 4.5 %; Neutrophils # 16.85 10^3/uL (1.8-7.7); Neutrophils % 89.9 %; Nucleated Red Blood Cells % 0 %; Platelet Count 293 10^3/cmm (157-399); Red Blood Count 3.97 10^6/uL (3.85-5.65); White Blood Count 18.73 10^3/uL (3.29-11.43)
[2024-01-21 05:10] LABS: Blood Urea Nitrogen 36 mg/dL (8-23); Calcium 8.3 mg/dL (8.5-10.5); Carbon Dioxide 22 mmol/L (22-29); Chloride 99 mmol/L (98-107); Creatinine Clr Calc Pharmacy 44.4968; Glucose 136 mg/dL (65-115); Magnesium 2.3 mg/dL (1.7-2.3); Phosphorus 3.9 mg/dL (2.5-4.5); Sodium 136 mmol/L (136-145)
--- NOTE | 2024-01-21 10:28 | P.PN_ITS ---
Subjective 2 Subjective: Patient seen and examined. He does report a little bit of nausea only recently. He has not had significant NG tube output.. Denies any abdominal pain Vitals/I&O/Wt Last Vital Signs Temp 98 F 01/21/24 07:46 Pulse 78 01/21/24 07:46 Resp 18 01/21/24 07:46 BP 133/76 01/21/24 07:46 Pulse Ox 91 01/21/24 07:46 O2 Del Method Room Air 01/21/24 07:46 O2 Flow Rate 2 01/20/24 12:30 01/20/24 01/21/24 01/21/24 22:59 06:59 14:59 Intake Total 100 / 1300 100 / 1400 Output Total 500 / 900 700 / 1600 Balance -400 / 400 -600 / -200 Weight last 48 hrs Weight 275 lb Weight 276 lb 14.4 oz Weight 279 lb Weight 280 lb Physical Exam 2 Narrative: General: No acute distress, awake alert and oriented x 3 Abdomen: Soft, nontender, nondistended Urinary Catheter Management: Canela: Cath Placed During This Visit: yes Reason for Continuing Indwelling Catheter: Other Urinary Catheter Date of Insertion: 01/19/24 Urinary Catheter Time of Insertion: 12:45 Data 01/21/24 04:18 01/21/24 04:18 Micro: Microbiology 01/19/24 13:04 Urine Culture - Preliminary Urine,Clean Catch Gram Negative Rods A&P Assessment and plan (1) Esophagitis: Plan DC NG tube Clear liquid diet Pantoprazole 40 mg IV twice daily Sucralfate 1 g liquid twice daily Medical management per hospitalist and Ortho Attestations 2 Medical Necessity Statement*: Per primary Coding Level of Care Code 47066 Diagnoses Esophagitis K20.90
[2024-01-21] MEDS: amlodipine 5 mg Tablet PO (10:30)
[2024-01-21] MEDS: sennosides-docusate Tablet 1 TAB PO (10:30)
--- NOTE | 2024-01-21 11:40 | P.PN_ITS ---
Subjective 2 Subjective: Patient sitting up in chair doing well. Complaining more of right shoulder pain than his hip. Less nauseous as well. Vitals/I&O/Wt Last Vital Signs Temp 98 F 01/21/24 07:46 Pulse 78 01/21/24 07:46 Resp 18 01/21/24 10:34 BP 133/76 01/21/24 07:46 Pulse Ox 91 01/21/24 10:34 O2 Del Method Room Air 01/21/24 07:46 O2 Flow Rate 2 01/20/24 12:30 01/20/24 01/21/24 01/21/24 22:59 06:59 14:59 Intake Total 100 / 1300 100 / 1400 Output Total 500 / 900 700 / 1600 Balance -400 / 400 -600 / -200 Weight last 48 hrs Weight 275 lb Weight 276 lb 14.4 oz Weight 279 lb Physical Exam 2 Narrative: Patient sitting up in chair was sleeping when I walked in. Pain is controlled. Complaining more of right shoulder pain. Patient stated that he had a bursitis for years and his symptoms flared up the last couple weeks but even before he fell. Urinary Catheter Management: Canela: Cath Placed During This Visit: yes Reason for Continuing Indwelling Catheter: Other Urinary Catheter Date of Insertion: 01/19/24 Urinary Catheter Time of Insertion: 12:45 Data 01/21/24 04:18 01/21/24 04:18 Micro: Microbiology 01/19/24 13:04 Urine Culture - Preliminary Urine,Clean Catch Gram Negative Rods A&P Assessment and plan (1) Closed intertrochanteric fracture of left hip: Postop day #1 left hip nail Okay to start anticoagulation when okay with other services. Up with PT PT work with ambulation as well as physical therapy for right shoulder. Qualifiers: Encounter type: initial encounter Fracture alignment: displaced Qualified Code(s): S72.142A - Displaced intertrochanteric fracture of left femur, initial encounter for closed fracture Attestations 2 Medical Necessity Statement*: Per primary service Coding Level of Care Code Acute Code for [facility] Fwd Diagnoses Closed intertrochanteric fracture of left hip S72.142A Encounter type: initial encounter Fracture alignment: displaced
[2024-01-21] MEDS: sucralfate 1 gm/10 mL Oral Liq UDC PO ×3 (12:19→20:13)
[2024-01-21] MEDS: pantoprazole 40 mg SDV IVP ×3 (12:19→23:50)
--- NOTE | 2024-01-21 13:17 | XRR_ITS ---
PROCEDURE INFORMATION: Exam: XR Left Knee Exam date and time: 01/21/2024 6:33 PM Age: 78 years old Clinical indication: Pain; Knee; Left; Additional info: Lt knee pain post fall; Recent lt hip fx/surgical fixation TECHNIQUE: Imaging protocol: Radiologic exam of the left knee. Views: 3 views. COMPARISON: No relevant prior studies available. FINDINGS: Bones/joints: No acute fracture or dislocation. Moderate narrowing of the medial compartment. Tricompartmental marginal osteophytes. Several bentley are seen within bilateral femoral condyles from prior surgery. Soft tissues: Normal. XR/XR knee LT 3V* [id number] IMPRESSION: 1. No acute osseous findings. 2. Tricompartmental degenerative changes most pronounced in the medial compartment.
--- NOTE | 2024-01-21 14:28 | P.PN_ITS ---
Subjective 2 Subjective: Patient is up to bedside chair. NG tube removed and started on liquid diet. He denies any nausea or abdominal pains. Tolerating diet well. He denies any hip pain. He reports left-sided knee pain. He has a history of trauma as well as surgery to that knee. He is agreeable that obtaining portable x-rays of the knee. His spouse and other family are bedside and supportive. We discussed the plan of care. We discussed we're waiting for therapy evaluation but anticipate the patient is going to require postacute care. Medications: Reviewed: Yes Vitals/I&O/Wt Last Vital Signs Temp 98.5 F 01/21/24 11:55 Pulse 68 01/21/24 11:55 Resp 17 01/21/24 11:55 BP 109/68 01/21/24 11:55 Pulse Ox 94 01/21/24 11:55 O2 Del Method Room Air 01/21/24 11:55 O2 Flow Rate 2 01/20/24 12:30 01/20/24 01/21/24 01/21/24 22:59 06:59 14:59 Intake Total 100 / 1300 100 / 1400 1080 / 1080 Output Total 500 / 900 700 / 1600 500 / 500 Balance -400 / 400 -600 / -200 580 / 580 Weight last 48 hrs Weight 124.738 kg Weight 125.6 kg Weight 126.552 kg Physical Exam 2 Narrative: General: Patient is awake. Alert. Sitting in bedside chair. Very pleasant. Head: Normocephalic. Atraumatic. EOM intact. NG tube present. Neck: No JVD. Cardiovascular: RRR. No gallops. No murmurs. Lungs: Breath sounds are slightly diminished at bilateral bases, no use of accessory muscles, no crackles or wheezes. Skin: No jaundice. No rashes. Abdomen: Normal active bowel sounds. No guarding. Not distended. Genito Urinary: Canela Extremities: No cyanosis or clubbing. Surgical bandage over recent hip surgery site. Left knee is slightly tender to palpation on the medial aspect. Old well-healed surgical scars are present. Musculoskeletal: No erythematous joints. Neurological: Moves all 4 extremities. No myoclonus. Urinary Catheter Management: Canela: Cath Placed During This Visit: yes Reason for Continuing Indwelling Catheter: Other Urinary Catheter Date of Insertion: 08/23/24 Urinary Catheter Time of Insertion: 12:45 Data 01/21/24 04:18 01/21/24 04:18 Micro: Microbiology 01/19/24 13:04 Urine Culture - Final Urine,Clean Catch Serratia marcescens A&P Assessment and plan (1) Closed intertrochanteric fracture of left hip: Orthopedic surgery following, appreciate recommendations Status post surgery on 01/19 PT and OT Pain control Start DVT prophylaxis Obtain plain films of left knee Qualifiers: Encounter type: initial encounter Fracture alignment: displaced Qualified Code(s): S72.142A - Displaced intertrochanteric fracture of left femur, initial encounter for closed fracture (2) Ileus: General surgery is following, appreciate recommendations NG tube removed this morning On liquid diet, advance as tolerated (3) Urinary tract infection: Urine culture reviewed Patient reportedly self caths at home which makes him high risk Continue ceftriaxone (4) New onset of congestive heart failure: Suspected new CHF Plan for routine echocardiogram on Monday Strict I's and O's Daily weights (5) Essential hypertension: Continue Norvasc Hydralazine as needed (6) Chronic kidney disease: Chronic kidney disease, suspected stage III Renally dose medications Avoid nephrotoxins Plan DVT prophylaxis: Lovenox CODE STATUS: Full code Attestations 2 Medical Necessity Statement*: Patient requires ongoing hospitalization for monitoring of labs, titration of pain regiment, serial abdominal exams and general surgery expertise, and supportive care. Coding Level of Care Code Acute Code for [facility] Fwd Diagnoses Closed intertrochanteric fracture of left hip S72.142A Encounter type: initial encounter Fracture alignment: displaced Ileus K56.7 Urinary tract infection N39.0 New onset of congestive heart failure I50.9 Essential hypertension I10 Chronic kidney disease N18.9
[2024-01-21] MEDS: cefTRIAXone 1,000 mg SDV 1000 MG IVP (16:04)
[2024-01-21] MEDS: oxyCODONE-APAP 5-325 mg Tablet 1 TAB PO ×2 (16:04→20:57)
[2024-01-21] MEDS: enoxaparin 40 mg/0.4 mL Syringe SUBCUT (20:13)
[2024-01-21] MEDS: sennosides 8.6 mg Tablet 17.2 MG PO (20:13)
[2024-01-22] VITALS (11 sets, daily range): BP systolic 108–136; BP diastolic 65–74; PULSE 64–76; RESP 15–20; TEMP 36.5–37.1; O2SAT 93–95
[2024-01-22] MEDS: oxyCODONE-APAP 5-325 mg Tablet 1 TAB PO ×4 (03:45→20:30)
[2024-01-22 05:02] LABS: Basophils % 0.3 %; Eosinophils % 0.2 %; Hematocrit 36.4 % (37-53); Lymphocytes # 1.4 10^3/uL (0.8-4.8); Lymphocytes % 9.1 %; Mean Corpuscular HGB Conc 32.1 g/dL (30-55); Mean Corpuscular Hemoglobin 30.3 pg (27-33); Mean Corpuscular Volume 94.3 fl (82-101); Mean Platelet Volume 9.8 fL (7.4-10.4); Monocytes # 0.8 10^3/uL (0.2-0.9); Monocytes % 5.3 %; Neutrophils # 12.66 10^3/uL (1.8-7.7); Neutrophils % 84.2 %; Nucleated Red Blood Cells % 0 %; Platelet Count 299 10^3/cmm (157-399); Red Blood Count 3.86 10^6/uL (3.85-5.65); Red Cell Distribution Width 13.8 % (12.1-15.1); White Blood Count 15.04 10^3/uL (3.29-11.43)
[2024-01-22 05:46] LABS: Albumin Level 3.8 g/dL (3.5-5.2); Anion Gap 19.7 (5-19); Blood Urea Nitrogen 42 mg/dL (8-23); Calcium 8.1 mg/dL (8.5-10.5); Carbon Dioxide 22 mmol/L (22-29); Chloride 92 mmol/L (98-107); Creatinine Clr Calc Pharmacy 36.6291; Glucose 139 mg/dL (65-115); Magnesium 2.3 mg/dL (1.7-2.3); Phosphorus 3.4 mg/dL (2.5-4.5); Potassium 3.7 mmol/L (3.5-5.1); Sodium 130 mmol/L (136-145)
[2024-01-22] MEDS: sucralfate 1 gm/10 mL Oral Liq UDC PO ×4 (06:04→20:30)
[2024-01-22] MEDS: sennosides-docusate Tablet 1 TAB PO (08:41)
[2024-01-22] MEDS: amlodipine 5 mg Tablet PO (08:43)
--- NOTE | 2024-01-22 08:59 | PC.NURSE ---
Large mass on medial left leg, pt states from tick bite years ago.
--- NOTE | 2024-01-22 09:34 | PC.CHAP ---
Pastoral Care Encounter/Spiritual Assessment Type of Contact [] Declined animal control supervisor visit [] Patient/Family/Request visit [] Outpatient visit [] Follow-up visit [] Physician referral [] Code/Alert [x] Routine visit [] Staff referral [] Actively dying [] Patient sleeping [] Family support [] [] Out of room [] Palliative care [] [] Receiving care in room [] Pre-surgical visit [] Trauma [] Long length of stay [] ICU visit [] Other: Relational/Emotional Strength [] Patient feels connected with others/family/visitors/staff [] Distress [] Loneliness/isolation [] Abandonment Spirituality of Patient [x] Person of [place] [] Attends Gnosticist of their [place] [x] Believes in Prayer [] Reads Bible or Synagogue materials [] There are Spiritual issues to be addressed Bartender Helper Interventions [x] Prayer [x] Active listening [] Non-anxious presence [] Spiritual/emotional support [] Crisis/trauma care [] Spiritual counseling [] Bereavement support [] Provided bereavement packet [x] Provided Bible/devotional materials [] Provided toy/stuffed animal, coloring book to patient or family member [] Provided Communion [] Anointing/[place] [] Salvation [x] Completed spiritual assessment [] Other: Impact on Illness or Injury [] Angry [] Fearful [] Anxious [] Often cries [] Exhaustion [] Unable to work [] Unable to attend mormonism [] Unable to walk/stand [] Unable to read [] Unable to drive [] Unable to eat/drink [] Unable to sleep [] Unable to be with family [] Patient intubated [] Other: Summary Time spent with patient 10 min
[2024-01-22] MEDS: pantoprazole 40 mg SDV IVP (11:20)
--- NOTE | 2024-01-22 13:39 | P.PN_ITS ---
Subjective 2 Subjective: Patient seen and examined. Denies any abdominal pain or nausea today Vitals/I&O/Wt Last Vital Signs Temp 97.6 F 01/23/24 11:21 Pulse 63 01/23/24 11:21 Resp 18 01/23/24 11:21 BP 124/67 01/23/24 11:21 Pulse Ox 97 01/23/24 11:21 O2 Del Method Room Air 01/23/24 11:21 O2 Flow Rate 2 01/20/24 12:30 01/22/24 01/23/24 01/23/24 22:59 06:59 14:59 Intake Total 720 / 1920 480 / 2400 720 / 720 Output Total 1450 / 1450 1600 / 3050 Balance -730 / 470 -1120 / -650 720 / 720 Weight last 48 hrs Weight 275 lb Weight 275 lb Physical Exam 2 Narrative: General: No acute distress, awake alert and oriented x 3 Abdomen: Soft, nontender, nondistended Urinary Catheter Management: Canela: Cath Placed During This Visit: yes Reason for Continuing Indwelling Catheter: Acute Urinary Retention or Obstruction Urinary Catheter Date of Insertion: 01/19/24 Urinary Catheter Time of Insertion: 12:45 Data 01/23/24 04:34 01/23/24 04:34 A&P Assessment and plan (1) Esophagitis: Plan Soft diet Pantoprazole 40 mg IV twice daily Sucralfate 1 g liquid twice daily Follow-up on biopsy results. Follow-up in my office if results not up by time of discharge Medical management per hospitalist and Ortho Attestations 2 Medical Necessity Statement*: per primary Coding Level of Care Code 84037 Diagnoses Esophagitis K20.90
[2024-01-22] MEDS: cefTRIAXone 1,000 mg SDV 1000 MG IVP (17:41)
--- NOTE | 2024-01-22 18:47 | P.PN_ITS ---
Subjective 2 Subjective: He states he is overall improving. Yesterday took 2 people to stand him up, he states today he worked with 1 therapist. He has had a couple bowel movements, looking forward to advancing his diet. Vitals/I&O/Wt Last Vital Signs Temp 98.2 F 01/22/24 15:41 Pulse 71 01/22/24 15:41 Resp 17 01/22/24 15:41 BP 121/74 01/22/24 15:41 Pulse Ox 95 01/22/24 15:41 O2 Del Method Room Air 01/22/24 15:41 O2 Flow Rate 2 01/20/24 12:30 01/22/24 01/22/24 01/22/24 06:59 14:59 22:59 Intake Total 620 / 2900 1200 / 1200 480 / 1680 Output Total 500 / 1500 250 / 250 Balance 120 / 1400 1200 / 1200 230 / 1430 Weight last 48 hrs Weight 124.738 kg Weight 124.738 kg Physical Exam 2 Narrative: Sitting up in chair. Const: COMMON NORMALS: patient oriented x3 and alert GENERAL APPEARANCE: c ooperative ORIENTATION/CONSCIOUSNESS: Yes awake HENMT: COMMON NORMALS: oropharynx normal Neck/C-Spine: COMMON NORMALS: no JVD Resp: COMMON NORMALS: normal respiratory effort and clear to auscultation bilaterally AUSCULTATION: clear to auscultation bilaterally Cardio: COMMON NORMALS: no JVD, regular rhythm, S1 normal heart sound present, S2 normal heart sound present and No murmurs present (Cardio) RHYTHM: regular rhythm HEART SOUNDS: S1 normal heart sound present and S2 normal heart sound present GI: COMMON NORMALS: Normal to inspection, nondistended, normoactive bowel sounds present, Soft to palpation and non-tender PALPATION: Yes Soft to palpation Extremity: COMMON NORMALS: no joint enlargement and no pedal edema Neuro: COMMON NORMALS: patient oriented x3 and moves all extremities S ENSORIUM/ORIENTATION: Yes alert Skin: COMMON NORMALS: no rashes or lesions noted GENERAL SKIN EXAM: no rashes or lesions noted Urinary Catheter Management: Canela: Cath Placed During This Visit: yes Reason for Continuing Indwelling Catheter: Acute Urinary Retention or Obstruction Urinary Catheter Date of Insertion: 01/19/24 Urinary Catheter Time of Insertion: 12:45 Data 01/22/24 04:21 01/22/24 04:21 A&P Assessment and plan (1) Closed intertrochanteric fracture of left hip: Reviewed vitals, CBC, hemoglobin with some decrease down to 11.7. Recheck blood counts. Originally 14. Reviewed platelets, 299. On Lovenox VTE prophylaxis. Continue to mobilize with physical therapy he may benefit from further rehabilitation, discussed with him and rehabilitation case coordinator, however, he declines to consider going to SNF. He is agreeable to home health. Continue pain control, avoid opioid if possible with ileus. Stop IV hydromorphone. Status post surgery on 01/19 PT and OT Pain control Start DVT prophylaxis Obtain plain films of left knee Qualifiers: Encounter type: initial encounter Fracture alignment: displaced Qualified Code(s): S72.142A - Displaced intertrochanteric fracture of left femur, initial encounter for closed fracture (2) Ileus: Appears possibly resolved. He has had bowel movements. Tolerating clear liquid diet so far. Advance to GI soft. Reassess tolerance. If doing well may be able to discharge. General surgery is following, appreciate recommendations NG tube removed this morning On liquid diet, advance as tolerated (3) Urinary tract infection: Reviewed urine culture, growing Serratia marcescens sensitive to ceftriaxone. Continue. Patient reportedly self caths at home which makes him high risk (4) New onset of congestive heart failure: Suspected new CHF is reported with plans for echo today. Requested. Currently to me he appears compensated. Will reassess. Strict I's and O's Daily weights (5) Essential hypertension: Continue Norvasc Hydralazine as needed (6) Chronic kidney disease: Chronic kidney disease, suspected stage III Renally dose medications Avoid nephrotoxins Plan DVT prophylaxis: Lovenox CODE STATUS: Full code Attestations 2 Medical Necessity Statement*: Continue admission for assessment management following hip fracture and repair, ileus, suspected new CHF. and High MDM includes amount and/or complexity of data reviewed/ordered [ resulted lab(s)/test(s), ordered lab(s)/test(s) and other healthcare professional discussion] as documented Diagnoses Closed intertrochanteric fracture of left hip S72.142A Encounter type: initial encounter Fracture alignment: displaced Ileus K56.7 Urinary tract infection N39.0 New onset of congestive heart failure I50.9 Essential hypertension I10 Chronic kidney disease N18.9
--- NOTE | 2024-01-22 18:53 | USCV_ITS ---
Neil Lowe Age: 78 Gender: M : 1945 Exam Date: 01/22/2024 22:19 Ordering Phys: Lei Tamayo MD Technologist: DOROTEO Exam Location: [facility] [place] Indication: chf s/p LEFT HIP ORIF. BP: 121 / 74 HR: 66 Rhythm: Sinus Technical Quality: Technically difficult study MEASUREMENTS (Male / Female) Normal Values 2D ECHO LV Diastolic Diameter PLAX 4.0 cm 4.2 - 5.9 / 3.9 - 5.3 cm IVS Diastolic Thickness 1.8 cm 0.6 - 1.0 / 0.6 - 0.9 cm IVS Systolic Thickness 2.1 cm LVPW Diastolic Thickness 2.0 cm 0.6 - 1.0 / 0.6 - 0.9 cm LVPW Systolic Thickness 2.2 cm LVOT Diameter 3.0 cm LV Ejection Fraction 2D Teich 55.7 % LV Ejection Fraction MOD 4C 60.8 % LV Ejection Fraction MOD 2C 56.9 % LV Ejection Fraction 2C AL 57.6 % LA Diameter 5.9 cm Aorta at Sinotubular Diameter 4.3 cm IVC Diameter 1.4 cm M-MODE LA Ao Ratio MM 1.4 AV Cusp Separation MM 2.9 cm DOPPLER AV Peak Velocity 136.0 cm/s LVOT Peak Velocity 105.0 cm/s AV Area Cont Eq vti 6.1 cm squared AV Area Cont Eq pk 5.6 cm squared MV Peak Velocity 100.0 cm/s MV Area PHT 2.4 cm squared Mitral E to A Ratio 0.6 FINDINGS Left Ventricle Left ventricular is normal in size. LV systolic function is normal with EF of 55-60%. No regional wall motion abnormalities are seen. Grade 1 diastolic dysfunction Right Ventricle Normal in size and function Right Atrium Normal in size Left Atrium Normal in size Mitral Valve Mild mitral annular calcification. Aortic Valve Structurally normal aortic valve. No significant stenosis or regurgitation. Tricuspid Valve Insufficient TR jet to calculate RVSP. Pulmonic Valve Not well visualized Pericardium Normal Aorta Mildly dilated ascending aorta with diameter of 3.53cm IVC Appears to be normal CONCLUSIONS LV systolic function is normal with EF of 55-60% Grade 1 diastolic dysfunction Mildly dilated asceding aorta with diameter of 3.53cm No comparison studies are available. Santiago Mcqueen MD (Electronically Signed) Final Date: 23 January 2024 12:02 S
[2024-01-22] MEDS: sennosides 8.6 mg Tablet 17.2 MG PO (20:30)
[2024-01-22] MEDS: enoxaparin 40 mg/0.4 mL Syringe SUBCUT (20:30)
[2024-01-23] VITALS (8 sets, daily range): BP systolic 112–145; BP diastolic 67–88; PULSE 63–104; RESP 16–20; TEMP 36.4–37; O2SAT 93–97
[2024-01-23] MEDS: pantoprazole 40 mg SDV IVP ×2 (01:06→13:56)
[2024-01-23 05:12] LABS: Basophils % 0.4 %; Eosinophils # 0.2 10^3/uL (0.0-0.8); Eosinophils % 1.8 %; Hematocrit 34.3 % (37-53); Lymphocytes # 1.3 10^3/uL (0.8-4.8); Lymphocytes % 12.1 %; Mean Corpuscular HGB Conc 32.7 g/dL (30-55); Mean Corpuscular Hemoglobin 30.2 pg (27-33); Mean Corpuscular Volume 92.5 fl (82-101); Mean Platelet Volume 9.8 fL (7.4-10.4); Monocytes # 0.8 10^3/uL (0.2-0.9); Monocytes % 7.4 %; Neutrophils # 8.35 10^3/uL (1.8-7.7); Neutrophils % 76.8 %; Nucleated Red Blood Cells % 0 %; Platelet Count 287 10^3/cmm (157-399); Red Blood Count 3.71 10^6/uL (3.85-5.65); Red Cell Distribution Width 13.2 % (12.1-15.1); White Blood Count 10.88 10^3/uL (3.29-11.43)
[2024-01-23 05:32] LABS: Anion Gap 16.4 (5-19); Blood Urea Nitrogen 41 mg/dL (8-23); Calcium 7.8 mg/dL (8.5-10.5); Carbon Dioxide 22 mmol/L (22-29); Chloride 93 mmol/L (98-107); Creatinine Clr Calc Pharmacy 44.3405; Glucose 118 mg/dL (65-115); Osmolality Calculated 277 mOsm/kg (285-295); Potassium 3.4 mmol/L (3.5-5.1); Sodium 128 mmol/L (136-145)
[2024-01-23] MEDS: oxyCODONE-APAP 5-325 mg Tablet 1 TAB PO (05:43)
[2024-01-23] MEDS: sucralfate 1 gm/10 mL Oral Liq UDC PO ×4 (07:01→20:31)
[2024-01-23] MEDS: amlodipine 5 mg Tablet PO (08:00)
[2024-01-23] MEDS: sennosides-docusate Tablet 1 TAB PO (08:01)
--- NOTE | 2024-01-23 08:07 | P.PN_ITS ---
Subjective 2 Subjective: Patient is doing well pain controlled sitting in chair. Been up ambulating a little bit. Vitals/I&O/Wt Last Vital Signs Temp 98.0 F 01/23/24 07:36 Pulse 72 01/23/24 07:36 Resp 18 01/23/24 07:36 BP 112/71 01/23/24 07:36 Pulse Ox 93 01/23/24 07:36 O2 Del Method Room Air 01/23/24 07:36 O2 Flow Rate 2 01/20/24 12:30 01/22/24 01/23/24 01/23/24 22:59 06:59 14:59 Intake Total 720 / 1920 480 / 2400 Output Total 1450 / 1450 1600 / 3050 Balance -730 / 470 -1120 / -650 Weight last 48 hrs Weight 275 lb Weight 275 lb Weight 275 lb Physical Exam 2 Narrative: Patient sitting up in chair pain controlled and has ambulated a little bit Urinary Catheter Management: Canela: Cath Placed During This Visit: yes Reason for Continuing Indwelling Catheter: Acute Urinary Retention or Obstruction Urinary Catheter Date of Insertion: 01/19/24 Urinary Catheter Time of Insertion: 12:45 Data 01/23/24 04:34 01/23/24 04:34 A&P Assessment and plan (1) Closed intertrochanteric fracture of left hip: Status post nail Lovenox for DVT prophylaxis. Up with PT Okay to discharge from orthopedic standpoint Qualifiers: Encounter type: initial encounter Fracture alignment: displaced Qualified Code(s): S72.142A - Displaced intertrochanteric fracture of left femur, initial encounter for closed fracture Attestations 2 Medical Necessity Statement*: Per primary service Coding Level of Care Code Acute Code for Chg Fwd Diagnoses Closed intertrochanteric fracture of left hip S72.142A Encounter type: initial encounter Fracture alignment: displaced
[2024-01-23] MEDS: potassium chloride ER 20 mEq Tablet PO (12:35)
--- NOTE | 2024-01-23 12:58 | P.PN_ITS ---
Subjective 2 Subjective: He had gotten up a few steps from the chair to the commode with therapist. Has not walked. No nausea or vomiting. Tolerating oral intake. Has had bowel movements. Vitals/I&O/Wt Last Vital Signs Temp 97.6 F 01/23/24 11:21 Pulse 63 01/23/24 11:21 Resp 18 01/23/24 11:21 BP 124/67 01/23/24 11:21 Pulse Ox 97 01/23/24 11:21 O2 Del Method Room Air 01/23/24 11:21 O2 Flow Rate 2 01/20/24 12:30 01/22/24 01/23/24 01/23/24 22:59 06:59 14:59 Intake Total 720 / 1920 480 / 2400 720 / 720 Output Total 1450 / 1450 1600 / 3050 Balance -730 / 470 -1120 / -650 720 / 720 Weight last 48 hrs Weight 124.738 kg Weight 124.738 kg Physical Exam 2 Narrative: Sitting up in chair. Accompanied by his . Const: COMMON NORMALS: patient oriented x3 and alert GENERAL APPEARANCE: c ooperative ORIENTATION/CONSCIOUSNESS: Yes awake HENMT: COMMON NORMALS: oropharynx normal Neck/C-Spine: COMMON NORMALS: no JVD Resp: COMMON NORMALS: normal respiratory effort and clear to auscultation bilaterally AUSCULTATION: clear to auscultation bilaterally Cardio: COMMON NORMALS: no JVD, regular rhythm, S1 normal heart sound present, S2 normal heart sound present and No murmurs present (Cardio) RHYTHM: regular rhythm HEART SOUNDS: S1 normal heart sound present and S2 normal heart sound present GI: COMMON NORMALS: Normal to inspection, nondistended, normoactive bowel sounds present, Soft to palpation and non-tender PALPATION: Yes Soft to palpation Extremity: COMMON NORMALS: no joint enlargement and no pedal edema Neuro: COMMON NORMALS: patient oriented x3 and moves all extremities S ENSORIUM/ORIENTATION: Yes alert Skin: COMMON NORMALS: no rashes or lesions noted GENERAL SKIN EXAM: no rashes or lesions noted Urinary Catheter Management: Canela: Cath Placed During This Visit: yes Reason for Continuing Indwelling Catheter: Acute Urinary Retention or Obstruction Urinary Catheter Date of Insertion: 01/19/24 Urinary Catheter Time of Insertion: 12:45 Data 01/23/24 04:34 01/23/24 04:34 A&P Assessment and plan (1) Closed intertrochanteric fracture of left hip: Hemoglobin down further slightly to 11.2 on review, reviewed platelets, normal. Vitals normal, maintain blood pressure related issues. Reviewed BMP, mild hyponatremia 128. Diet is not sodium restricted. Reassess BMP. Given potassium for hypokalemia. Recheck level. Check magnesium. He had made a few steps with therapist from chair to the commode. Has not ambulated. His is unable to assist him at home. As per additional discussion he is now agreeable to rehabilitation at SNF. Discussed with nursing, discussed with nurse case management. Arrangements underway for SNF rehabilitation. Reviewed orthopedic note. Continue pain control, avoid opioid if possible with ileus. Stop IV hydromorphone. Status post surgery on 01/19 PT and OT Pain control Start DVT prophylaxis Obtain plain films of left knee Qualifiers: Encounter type: initial encounter Fracture alignment: displaced Qualified Code(s): S72.142A - Displaced intertrochanteric fracture of left femur, initial encounter for closed fracture (2) Ileus: Appears resolved. GI soft diet. Reassess tolerance. If doing well may be able to discharge. General surgery is following, appreciate recommendations NG tube removed this morning On liquid diet, advance as tolerated (3) Urinary tract infection: Reviewed urine culture, growing Serratia marcescens sensitive to ceftriaxone. Continue. Patient reportedly self caths at home which makes him high risk (4) New onset of congestive heart failure: Reviewed echo, normal ejection fraction, grade 1 diastolic dysfunction. Mildly dilated ascending aorta diameter 3.53. Suspected new CHF is reported with plans for echo today. Requested. Currently to me he appears compensated. Will reassess. Strict I's and O's Daily weights (5) Essential hypertension: Continue Norvasc Hydralazine as needed (6) Chronic kidney disease: Chronic kidney disease, suspected stage III Renally dose medications Avoid nephrotoxins Plan DVT prophylaxis: Lovenox CODE STATUS: Full code Attestations 2 Medical Necessity Statement*: Continue admission for assessment management following hip fracture and repair, mobilization, electrolyte replacement following ileus, and regimen with underlying CKD, additional comorbidities as above. Postdischarge planning and arrangements underway. and High MDM includes amount and/or complexity of data reviewed/ordered [ previous or external records, resulted lab(s)/test(s), ordered lab(s)/test(s), independent historian and other healthcare professional discussion] as documented Diagnoses Closed intertrochanteric fracture of left hip S72.142A Encounter type: initial encounter Fracture alignment: displaced Ileus K56.7 Urinary tract infection N39.0 New onset of congestive heart failure I50.9 Essential hypertension I10 Chronic kidney disease N18.9
--- NOTE | 2024-01-23 14:08 | P.PN_ITS ---
Subjective 2 Subjective: Patient seen and examined. Denies any nausea or abdominal pain. Positive BM last night Vitals/I&O/Wt Last Vital Signs Temp 97.6 F 01/23/24 11:21 Pulse 63 01/23/24 11:21 Resp 18 01/23/24 11:21 BP 124/67 01/23/24 11:21 Pulse Ox 97 01/23/24 11:21 O2 Del Method Room Air 01/23/24 11:21 O2 Flow Rate 2 01/20/24 12:30 01/22/24 01/23/24 01/23/24 22:59 06:59 14:59 Intake Total 720 / 1920 480 / 2400 720 / 720 Output Total 1450 / 1450 1600 / 3050 Balance -730 / 470 -1120 / -650 720 / 720 Weight last 48 hrs Weight 275 lb Weight 275 lb Physical Exam 2 Narrative: General: No acute distress, awake alert and oriented x 3 Abdomen: Soft, nontender, nondistended Urinary Catheter Management: Canela: Cath Placed During This Visit: yes Reason for Continuing Indwelling Catheter: Acute Urinary Retention or Obstruction Urinary Catheter Date of Insertion: 01/19/24 Urinary Catheter Time of Insertion: 12:45 Data 01/23/24 04:34 01/23/24 04:34 A&P Assessment and plan (1) Esophagitis: Plan Soft diet Pantoprazole 40 mg IV twice daily for 12 weeks Sucralfate 1 g liquid twice daily for 4 weeks Follow-up on biopsy results. Follow-up in my office if results not up by time of discharge Medical management per hospitalist and Ortho General Surgery will sign off. Please reconsult if the need arises Attestations 2 Medical Necessity Statement*: Per primary Coding Level of Care Code 18095 Diagnoses Esophagitis K20.90
[2024-01-23] MEDS: cefTRIAXone 1,000 mg SDV 1000 MG IVP (17:35)
[2024-01-23] MEDS: sennosides 8.6 mg Tablet 17.2 MG PO (20:31)
[2024-01-23] MEDS: enoxaparin 40 mg/0.4 mL Syringe SUBCUT (20:31)
[2024-01-24] VITALS (10 sets, daily range): BP systolic 116–156; BP diastolic 64–86; PULSE 61–98; RESP 16–18; TEMP 36.4–37.1; O2SAT 92–95
[2024-01-24] MEDS: pantoprazole 40 mg SDV IVP ×2 (00:27→11:09)
[2024-01-24 04:52] LABS: Basophils % 0.5 %; Eosinophils # 0.2 10^3/uL (0.0-0.8); Eosinophils % 2.8 %; Hematocrit 33.2 % (37-53); Lymphocytes # 1.2 10^3/uL (0.8-4.8); Mean Corpuscular HGB Conc 33.1 g/dL (30-55); Mean Corpuscular Hemoglobin 30.7 pg (27-33); Mean Corpuscular Volume 92.7 fl (82-101); Mean Platelet Volume 9.6 fL (7.4-10.4); Monocytes # 0.8 10^3/uL (0.2-0.9); Monocytes % 10.1 %; Neutrophils # 5.91 10^3/uL (1.8-7.7); Neutrophils % 70.9 %; Nucleated Red Blood Cells % 0 %; Platelet Count 265 10^3/cmm (157-399); Red Blood Count 3.58 10^6/uL (3.85-5.65); White Blood Count 8.33 10^3/uL (3.29-11.43)
[2024-01-24 05:15] LABS: Anion Gap 15.4 (5-19); Blood Urea Nitrogen 44 mg/dL (8-23); Calcium 7.9 mg/dL (8.5-10.5); Carbon Dioxide 21 mmol/L (22-29); Chloride 94 mmol/L (98-107); Creatinine Clr Calc Pharmacy 46.8039; Glucose 120 mg/dL (65-115); Osmolality Calculated 276 mOsm/kg (285-295); Potassium 3.4 mmol/L (3.5-5.1); Sodium 127 mmol/L (136-145)
[2024-01-24 05:19] LABS: Magnesium 2.2 mg/dL (1.7-2.3)
[2024-01-24] MEDS: sucralfate 1 gm/10 mL Oral Liq UDC PO ×4 (06:02→20:28)
[2024-01-24] MEDS: oxyCODONE-APAP 5-325 mg Tablet 1 TAB PO ×3 (08:24→20:28)
[2024-01-24] MEDS: amlodipine 5 mg Tablet PO (09:21)
[2024-01-24] MEDS: sennosides-docusate Tablet 1 TAB PO (09:22)
[2024-01-24] MEDS: potassium chloride ER 20 mEq Tablet PO (09:23)
[2024-01-24] MEDS: cefTRIAXone 1,000 mg SDV 1000 MG IVP (17:36)
[2024-01-24] MEDS: water for injection-sterile 10 ML 100 ML (17:37)
[2024-01-24] MEDS: enoxaparin 40 mg/0.4 mL Syringe SUBCUT (20:27)
[2024-01-24] MEDS: sennosides 8.6 mg Tablet 17.2 MG PO (20:28)
--- NOTE | 2024-01-24 21:39 | PM.PN ---
Subjective Subjective: He is working with therapy. Canela catheter still in place. He has not been standing/ambulating securely enough to try to resume self-catheterization as from what he tells me. Requested continue Canela catheter for now. Discussed with him regarding risk of infection. Vitals/I&O/Wt Last Vital Signs Temp 97.7 F 01/24/24 20:01 Pulse 72 01/24/24 20:01 Resp 18 01/24/24 20:28 BP 156/66 01/24/24 20:01 Pulse Ox 94 01/24/24 20:01 O2 Del Method Room Air 01/24/24 15:24 O2 Flow Rate 2 01/20/24 12:30 01/24/24 01/24/24 01/24/24 06:59 14:59 22:59 Intake Total 620 / 2300 300 / 300 370 / 670 Output Total 1500 / 3400 1200 / 1200 Balance -880 / -1100 -900 / -900 370 / -530 Weight last 48 hrs Weight 124.647 kg Weight 124.738 kg Physical Exam Narrative: Sitting up in chair. Const: COMMON NORMALS: patient oriented x3 and alert GENERAL APPEARANCE: cooperative ORIENTATION/CONSCIOUSNESS: Yes awake HENMT: COMMON NORMALS: oropharynx normal Neck/C-Spine: COMMON NORMALS: no JVD Resp: COMMON NORMALS: normal respiratory effort and clear to auscultation bilaterally AUSCULTATION: clear to auscultation bilaterally Cardio: COMMON NORMALS: no JVD, regular rhythm, S1 normal heart sound present, S2 normal heart sound present and No murmurs present (Cardio) RHYTHM: regular rhythm HEART SOUNDS: S1 normal heart sound present and S2 normal heart sound present GI: COMMON NORMALS: Normal to inspection, nondistended, normoactive bowel sounds present, Soft to palpation and non-tender PALPATION: Yes Soft to palpation Extremity: COMMON NORMALS: no joint enlargement and no pedal edema Neuro: COMMON NORMALS: patient oriented x3 and moves all extremities SENSORIUM/ORIENTATION: Yes alert Skin: COMMON NORMALS: no rashes or lesions noted GENERAL SKIN EXAM: no rashes or lesions noted Urinary Catheter Management: Canela: Cath Placed During This Visit: yes Reason for Continuing Indwelling Catheter: Other Urinary Catheter Date of Insertion: 01/19/24 Urinary Catheter Time of Insertion: 12:45 Data 01/24/24 04:00 01/24/24 04:00 A&P Assessment and plan (1) Closed intertrochanteric fracture of left hip: Discussed with him removal of Canela catheter. He request to continue catheter for now he states he is not yet stating after walk to the restroom, stand long enough to perform self-catheterization which he does at home. Discussed risk of infection. Continue Canela for now. Discussed with employment evaluator/case manager, pending arrangements for SNF rehabilitation. Reviewed hemoglobin, down to 11. Acute blood loss anemia after hip fracture and repair. Reassess blood counts. Platelets reviewed and are normal. Continues with Lovenox VTE prophylaxis. Status post surgery on 01/19 PT and OT Pain control Start DVT prophylaxis Obtain plain films of left knee Qualifiers: Encounter type: initial encounter Fracture alignment: displaced Qualified Code(s): S72.142A - Displaced intertrochanteric fracture of left femur, initial encounter for closed fracture (2) Essential hypertension: Continue Norvasc Hydralazine as needed (3) Ileus: Tolerating oral intake. Will stop PPI, sucralfate. Appears resolved. GI soft diet. Reassess tolerance. If doing well may be able to discharge. General surgery is following, appreciate recommendations NG tube removed this morning On liquid diet, advance as tolerated (4) Urinary tract infection: Reviewed urine culture, growing Serratia marcescens sensitive to ceftriaxone. Continue. Patient reportedly self caths at home which makes him high risk (5) New onset of congestive heart failure: Reviewed echo, normal ejection fraction, grade 1 diastolic dysfunction. Mildly dilated ascending aorta diameter 3.53. Suspected new CHF is reported with plans for echo today. Requested. Currently to me he appears compensated. Will reassess. Strict I's and O's Daily weights (6) Chronic kidney disease: Chronic kidney disease, suspected stage III Renally dose medications Avoid nephrotoxins Plan DVT prophylaxis: Lovenox CODE STATUS: Full code Attestations Medical Necessity Statement*: Continue admission for assessment management following hip fracture and repair, mobilization, electrolyte replacement following ileus, and regimen with underlying CKD, additional comorbidities as above. Postdischarge planning and arrangements underway. Diagnoses Closed intertrochanteric fracture of left hip S72.142A Encounter type: initial encounter Fracture alignment: displaced Essential hypertension I10 Ileus K56.7 Urinary tract infection N39.0 New onset of congestive heart failure I50.9 Chronic kidney disease N18.9
[2024-01-25] VITALS (8 sets, daily range): BP systolic 105–136; BP diastolic 66–74; PULSE 63–77; RESP 16–20; TEMP 36.4–36.8; O2SAT 93–95
[2024-01-25 03:56] LABS: Basophils # 0.1 10^3/uL (0.0-0.1); Basophils % 0.8 %; Eosinophils # 0.3 10^3/uL (0.0-0.8); Eosinophils % 5.3 %; Hematocrit 31.6 % (37-53); Lymphocytes # 1.3 10^3/uL (0.8-4.8); Lymphocytes % 21.2 %; Mean Corpuscular HGB Conc 33.2 g/dL (30-55); Mean Corpuscular Hemoglobin 30.5 pg (27-33); Mean Corpuscular Volume 91.9 fl (82-101); Mean Platelet Volume 9.4 fL (7.4-10.4); Monocytes # 0.8 10^3/uL (0.2-0.9); Monocytes % 12.4 %; Neutrophils # 3.61 10^3/uL (1.8-7.7); Nucleated Red Blood Cells % 0 %; Platelet Count 290 10^3/cmm (157-399); Red Blood Count 3.44 10^6/uL (3.85-5.65); Red Cell Distribution Width 12.9 % (12.1-15.1); White Blood Count 6.22 10^3/uL (3.29-11.43)
[2024-01-25 04:17] LABS: Anion Gap 17.1 (5-19); Blood Urea Nitrogen 45 mg/dL (8-23); Calcium 8.4 mg/dL (8.5-10.5); Carbon Dioxide 23 mmol/L (22-29); Chloride 95 mmol/L (98-107); Creatinine Clr Calc Pharmacy 46.7865; Glucose 135 mg/dL (65-115); Osmolality Calculated 286 mOsm/kg (285-295); Potassium 4.1 mmol/L (3.5-5.1); Sodium 131 mmol/L (136-145)
[2024-01-25] MEDS: oxyCODONE-APAP 5-325 mg Tablet 1 TAB PO ×2 (08:19→20:52)
[2024-01-25] MEDS: sennosides-docusate Tablet 1 TAB PO (09:48)
[2024-01-25] MEDS: amlodipine 5 mg Tablet PO (09:48)
[2024-01-25] MEDS: cefTRIAXone 1,000 mg SDV 1000 MG IVP (16:00)
--- NOTE | 2024-01-25 18:48 | P.PN_ITS ---
Subjective 2 Subjective: He is working with therapy. Walking about 30-40 feet. Vitals/I&O/Wt Last Vital Signs Temp 97.7 F 01/25/24 15:48 Pulse 69 01/25/24 15:48 Resp 20 H 01/25/24 15:48 BP 136/72 01/25/24 15:48 Pulse Ox 95 01/25/24 15:48 O2 Del Method Room Air 01/25/24 15:48 O2 Flow Rate 2 01/20/24 12:30 01/25/24 01/25/24 01/25/24 06:59 14:59 22:59 Intake Total 400 / 1790 800 / 800 695 / 1495 Output Total 0 / 0 1200 / 1200 Balance 400 / -410 800 / 800 -505 / 295 Weight last 48 hrs Weight 124.647 kg Physical Exam 2 Narrative: Sitting up in chair. Const: COMMON NORMALS: patient oriented x3 and alert GENERAL APPEARANCE: c ooperative ORIENTATION/CONSCIOUSNESS: Yes awake HENMT: COMMON NORMALS: oropharynx normal Neck/C-Spine: COMMON NORMALS: no JVD Resp: COMMON NORMALS: normal respiratory effort and clear to auscultation bilaterally AUSCULTATION: clear to auscultation bilaterally Cardio: COMMON NORMALS: no JVD, regular rhythm, S1 normal heart sound present, S2 normal heart sound present and No murmurs present (Cardio) RHYTHM: regular rhythm HEART SOUNDS: S1 normal heart sound present and S2 normal heart sound present GI: COMMON NORMALS: Normal to inspection, nondistended, normoactive bowel sounds present, Soft to palpation and non-tender PALPATION: Yes Soft to palpation Extremity: COMMON NORMALS: no joint enlargement and no pedal edema Neuro: COMMON NORMALS: patient oriented x3 and moves all extremities S ENSORIUM/ORIENTATION: Yes alert Skin: COMMON NORMALS: no rashes or lesions noted GENERAL SKIN EXAM: no rashes or lesions noted Urinary Catheter Management: Canela: Cath Placed During This Visit: yes Reason for Continuing Indwelling Catheter: Other Urinary Catheter Date of Insertion: 01/19/24 Urinary Catheter Time of Insertion: 12:45 Data 01/25/24 03:25 01/25/24 03:25 A&P Assessment and plan (1) Closed intertrochanteric fracture of left hip: He is walking about 30-40 feet with therapy. At current time does not feel secure returning home. Arrangements underway for SNF. Reviewed hemoglobin additional small declined to 10.5. Reassess blood counts. Platelets reviewed, normal. Continues on Lovenox for VTE prophylaxis. Reassess blood counts. Revisited again regarding UTI, risk of additional infection with Canela catheter. As he is mobilizing more now, he is agreeable to discontinuing catheter and resuming self catheterizations. Discussed with cyanide case hardener, pending arrangements for SNF rehabilitation. Encouraged incentive spirometer. Status post surgery on 01/19 PT and OT Pain control Start DVT prophylaxis Obtain plain films of left knee Qualifiers: Encounter type: initial encounter Fracture alignment: displaced Qualified Code(s): S72.142A - Displaced intertrochanteric fracture of left femur, initial encounter for closed fracture (2) Urinary tract infection: 1 more day of ceftriaxone, discontinue tomorrow. Urine culture with Serratia marcescens sensitive to ceftriaxone. Patient reportedly self caths at home which makes him high risk (3) Essential hypertension: Reviewed BMP, kidney function appears to be close to baseline. Continue Norvasc Hydralazine as needed (4) Ileus: Resolved. Tolerating oral intake. Off PPI, sucralfate. Appears resolved. GI soft diet. Reassess tolerance. (5) New onset of congestive heart failure: Status so far compensated. Reviewed BMP, renal function close to baseline. Reviewed echo, normal ejection fraction, grade 1 diastolic dysfunction. Mildly dilated ascending aorta diameter 3.53. Suspected new CHF is reported with plans for echo today. Requested. Currently to me he appears compensated. Will reassess. Strict I's and O's Daily weights (6) Chronic kidney disease: Chronic kidney disease, suspected stage III Renally dose medications Avoid nephrotoxins Plan Urine retention: History of urine retention. Resume self-catheterization with Canela removal. Monitor for symptoms of retention. DVT prophylaxis: Lovenox CODE STATUS: Full code Attestations 2 Medical Necessity Statement*: Continue admission for assessment management following hip fracture and repair, preparation for discharge, removal of Canela with history of urinary retention, mobilization, pending approval for SNF. and Moderate MDM includes number and complexity of problems actively addressed during encounter and amount and/or complexity of data reviewed/ordered as documented Diagnoses Closed intertrochanteric fracture of left hip S72.142A Encounter type: initial encounter Fracture alignment: displaced Urinary tract infection N39.0 Essential hypertension I10 Ileus K56.7 New onset of congestive heart failure I50.9 Chronic kidney disease N18.9
[2024-01-25] MEDS: enoxaparin 40 mg/0.4 mL Syringe SUBCUT (20:51)
[2024-01-25] MEDS: sennosides 8.6 mg Tablet 17.2 MG PO (20:51)
--- NOTE | 2024-01-25 22:16 | PC.NURSE ---
Pt refuses to have this nurse pull his foly catheter tonight, but did agree to have it removed tomorrow morning. This nurse educated the pt on severe risk of infection if he chooses to keep it in. Pt verbalized understanding and states he is willing to take that risk.
[2024-01-26] VITALS (9 sets, daily range): BP systolic 112–135; BP diastolic 69–73; PULSE 60–97; RESP 16–21; TEMP 36.4–36.8; O2SAT 93–99
[2024-01-26 04:25] LABS: Basophils # 0.1 10^3/uL (0.0-0.1); Basophils % 0.8 %; Eosinophils # 0.3 10^3/uL (0.0-0.8); Eosinophils % 3.9 %; Hematocrit 32.7 % (37-53); Lymphocytes # 1.4 10^3/uL (0.8-4.8); Lymphocytes % 18.8 %; Mean Corpuscular HGB Conc 32.4 g/dL (30-55); Mean Corpuscular Hemoglobin 29.9 pg (27-33); Mean Corpuscular Volume 92.1 fl (82-101); Mean Platelet Volume 9.3 fL (7.4-10.4); Monocytes # 0.9 10^3/uL (0.2-0.9); Monocytes % 11.9 %; Neutrophils # 4.67 10^3/uL (1.8-7.7); Neutrophils % 62.3 %; Nucleated Red Blood Cells % 0 %; Platelet Count 323 10^3/cmm (157-399); Red Blood Count 3.55 10^6/uL (3.85-5.65); Red Cell Distribution Width 12.9 % (12.1-15.1); White Blood Count 7.49 10^3/uL (3.29-11.43)
--- NOTE | 2024-01-26 04:27 | PC.NURSE ---
Upon asking the pt this morning if this nurse can pull his foly catheter pt stated he wants to keep it in and understands his risk of infection with that choice.
[2024-01-26] MEDS: oxyCODONE-APAP 5-325 mg Tablet 1 TAB PO ×2 (08:16→15:38)
[2024-01-26] MEDS: sennosides-docusate Tablet 1 TAB PO (08:16)
[2024-01-26] MEDS: amlodipine 5 mg Tablet PO (08:16)
--- NOTE | 2024-01-26 15:46 | P.PN_ITS ---
Subjective 2 Subjective: He states he is doing all right. Any questions you have to talk to my daughter . Earlier he declined removal of Canela catheter. Vitals/I&O/Wt Last Vital Signs Temp 97.6 F 01/26/24 11:49 Pulse 66 01/26/24 15:09 Resp 18 01/26/24 15:38 BP 118/70 01/26/24 15:09 Pulse Ox 94 01/26/24 15:09 O2 Del Method Room Air 01/26/24 15:09 O2 Flow Rate 2 01/20/24 12:30 01/26/24 01/26/24 01/26/24 06:59 14:59 22:59 Intake Total 120 / 2095 600 / 600 Output Total 950 / 2900 1150 / 1150 Balance -830 / -805 600 / 600 -1150 / -550 Physical Exam 2 Narrative: Sitting up in chair. Const: COMMON NORMALS: patient oriented x3 and alert GENERAL APPEARANCE: c ooperative ORIENTATION/CONSCIOUSNESS: Yes awake HENMT: COMMON NORMALS: oropharynx normal Neck/C-Spine: COMMON NORMALS: no JVD Resp: COMMON NORMALS: normal respiratory effort and clear to auscultation bilaterally AUSCULTATION: clear to auscultation bilaterally Cardio: COMMON NORMALS: no JVD, regular rhythm, S1 normal heart sound present, S2 normal heart sound present and No murmurs present (Cardio) RHYTHM: regular rhythm HEART SOUNDS: S1 normal heart sound present and S2 normal heart sound present GI: COMMON NORMALS: Normal to inspection, nondistended, normoactive bowel sounds present, Soft to palpation and non-tender PALPATION: Yes Soft to palpation Extremity: COMMON NORMALS: no joint enlargement and no pedal edema Neuro: COMMON NORMALS: patient oriented x3 and moves all extremities S ENSORIUM/ORIENTATION: Yes alert Skin: COMMON NORMALS: no rashes or lesions noted GENERAL SKIN EXAM: no rashes or lesions noted Urinary Catheter Management: Canela: Cath Placed During This Visit: yes Reason for Continuing Indwelling Catheter: Other Urinary Catheter Date of Insertion: 01/19/24 Urinary Catheter Time of Insertion: 12:45 Data 01/26/24 03:58 01/25/24 03:25 A&P Assessment and plan (1) Closed intertrochanteric fracture of left hip: Reviewed vitals, hemoglobin, platelets. Noted anemia, hemoglobin 6.6, without change from yesterday. Continues on Lovenox VTE prophylaxis. Recheck blood counts. Platelets are normal. Discussed with nursing, he had earlier declined removal of Canela. We had had a discussion with him regarding risk of infection with indwelling catheter. He seemed to stay through the nursing staff that the risk of infection is higher with self-catheterization while in the chair. He would not speak with us about it today stating any questions you have to talk to my daughter . Discussed with his daughter regarding high risk infection with indwelling Caenla as opposed to self-catheterization. Pending authorization for SNF rehabilitation. He is walking about 30-40 feet with therapy. Revisited again regarding UTI, risk of additional infection with Canela catheter. As he is mobilizing more now, he is agreeable to discontinuing catheter and resuming self catheterizations. Discussed with family preservation caseworker, pending arrangements for SNF rehabilitation. Encouraged incentive spirometer. Status post surgery on 01/19 PT and OT Pain control Start DVT prophylaxis Obtain plain films of left knee Qualifiers: Encounter type: initial encounter Fracture alignment: displaced Qualified Code(s): S72.142A - Displaced intertrochanteric fracture of left femur, initial encounter for closed fracture (2) Urinary tract infection: Completed antibiotic course for UTI. Ceftriaxone stopped. At risk of recurrent infection as discussed as he declines to remove Canela catheter. Urine culture with Serratia marcescens sensitive to ceftriaxone. Patient reportedly self caths at home which makes him high risk (3) Essential hypertension: Reviewed BMP, kidney function appears to be close to baseline. Continue Norvasc Hydralazine as needed (4) Ileus: Resolved. Tolerating oral intake. Off PPI, sucralfate. Appears resolved. GI soft diet. Reassess tolerance. (5) New onset of congestive heart failure: Status so far compensated. Reviewed BMP, renal function close to baseline. Reviewed echo, normal ejection fraction, grade 1 diastolic dysfunction. Mildly dilated ascending aorta diameter 3.53. Suspected new CHF is reported with plans for echo today. Requested. Currently to me he appears compensated. Will reassess. Strict I's and O's Daily weights (6) Chronic kidney disease: Chronic kidney disease, suspected stage III Renally dose medications Avoid nephrotoxins (7) Medical non-compliance: Declines Canela removal. Discussed we may offer assistance with catheterization or standing if he is having difficulty doing so himself. Family will try to speak with him again, at current time they decline Canela removal, understand risk of complications with infection. Discussed also with case management, PT, continue working on standing and mobility. Plan Urine retention: History of urine retention. Resume self-catheterization with Canela removal. Monitor for symptoms of retention. DVT prophylaxis: Lovenox CODE STATUS: Full code Attestations 2 Medical Necessity Statement*: Continue admission for assessment management following hip fracture and repair, pending approval for SNF. and High MDM includes described risk of complication, morbidity or mortality of management as documented Diagnoses Closed intertrochanteric fracture of left hip S72.142A Encounter type: initial encounter Fracture alignment: displaced Urinary tract infection N39.0 Essential hypertension I10 Ileus K56.7 New onset of congestive heart failure I50.9 Chronic kidney disease N18.9 Medical non-compliance Z91.199
[2024-01-26] MEDS: enoxaparin 40 mg/0.4 mL Syringe SUBCUT (20:59)
[2024-01-26] MEDS: sennosides 8.6 mg Tablet 17.2 MG PO (20:59)
[2024-01-27] VITALS (9 sets, daily range): BP systolic 115–133; BP diastolic 70–75; PULSE 61–73; RESP 15–20; TEMP 36.4–36.9; O2SAT 93–98
[2024-01-27 03:57] LABS: Basophils # 0.1 10^3/uL (0.0-0.1); Basophils % 0.8 %; Eosinophils # 0.2 10^3/uL (0.0-0.8); Eosinophils % 2.9 %; Hematocrit 30.2 % (37-53); Lymphocytes # 1.2 10^3/uL (0.8-4.8); Lymphocytes % 14.6 %; Mean Corpuscular HGB Conc 33.1 g/dL (30-55); Mean Corpuscular Hemoglobin 30.9 pg (27-33); Mean Corpuscular Volume 93.2 fl (82-101); Mean Platelet Volume 9.8 fL (7.4-10.4); Monocytes % 12.1 %; Neutrophils # 5.42 10^3/uL (1.8-7.7); Neutrophils % 67.7 %; Nucleated Red Blood Cells % 0 %; Platelet Count 331 10^3/cmm (157-399); Red Blood Count 3.24 10^6/uL (3.85-5.65)
[2024-01-27] MEDS: amlodipine 5 mg Tablet PO (07:49)
[2024-01-27] MEDS: oxyCODONE-APAP 5-325 mg Tablet 1 TAB PO ×2 (07:49→21:10)
[2024-01-27] MEDS: sennosides-docusate Tablet 1 TAB PO (07:50)
[2024-01-27] MEDS: polyethylene glycol 3350 Pkt 17 gm PO ×2 (10:26→22:38)
--- NOTE | 2024-01-27 18:53 | P.PN_ITS ---
Subjective 2 Subjective: He reports things are going well, he is working with therapy, working with incentive spirometer. Vitals/I&O/Wt Last Vital Signs Temp 97.5 F L 01/27/24 16:00 Pulse 73 01/27/24 16:00 Resp 15 01/27/24 16:00 BP 115/75 01/27/24 11:57 Pulse Ox 94 01/27/24 16:00 O2 Del Method Room Air 01/27/24 16:00 O2 Flow Rate 2 01/20/24 12:30 01/27/24 01/27/24 01/27/24 06:59 14:59 22:59 Intake Total 600 / 600 240 / 840 Output Total 600 / 2625 1700 / 1700 Balance -600 / -1825 -1100 / -1100 240 / -860 Physical Exam 2 Narrative: Sitting up in chair. Brought in census primary by her side. Const: COMMON NORMALS: patient oriented x3 and alert O RIENTATION/CONSCIOUSNESS: Yes awake Resp: COMMON NORMALS: normal respiratory effort Extremity: COMMON NORMALS: no joint enlargement and no pedal edema Neuro: COMMON NORMALS: patient oriented x3 and moves all extremities S ENSORIUM/ORIENTATION: Yes alert Urinary Catheter Management: Canela: Cath Placed During This Visit: yes Reason for Continuing Indwelling Catheter: Acute Urinary Retention or Obstruction Urinary Catheter Date of Insertion: 01/19/24 Urinary Catheter Time of Insertion: 12:45 Data 01/27/24 02:59 01/25/24 03:25 A&P Assessment and plan (1) Closed intertrochanteric fracture of left hip: Reviewed hemoglobin, some worsening anemia down to 10. Reviewed platelets, normal. Will need to reassess again. Continues on Lovenox for VTE prophylaxis. Reviewed vitals. Reviewed endoscopy report. Reviewed surgery note. Restart pantoprazole, sucralfate. Revisit Canela removal. He has declined Canela removal has not been comfortable with his level of activity to be able to perform self-catheterization independently. Declined assistance. Pending authorization for SNF rehabilitation. Continue incentive spirometer. Status post surgery on 01/19 PT and OT Pain control Start DVT prophylaxis Obtain plain films of left knee Qualifiers: Encounter type: initial encounter Fracture alignment: displaced Qualified Code(s): S72.142A - Displaced intertrochanteric fracture of left femur, initial encounter for closed fracture (2) Urinary tract infection: Completed antibiotic course for UTI. Ceftriaxone stopped. At risk of recurrent infection as discussed as he declines to remove Canela catheter. Urine culture with Serratia marcescens sensitive to ceftriaxone. Patient reportedly self caths at home which makes him high risk (3) Essential hypertension: Reviewed BMP, kidney function appears to be close to baseline. Continue Norvasc Hydralazine as needed (4) Ileus: Resolved. Tolerating oral intake. Off PPI, sucralfate. Appears resolved. GI soft diet. Reassess tolerance. (5) New onset of congestive heart failure: Status so far compensated. Reviewed BMP, renal function close to baseline. Reviewed echo, normal ejection fraction, grade 1 diastolic dysfunction. Mildly dilated ascending aorta diameter 3.53. Suspected new CHF is reported with plans for echo today. Requested. Currently to me he appears compensated. Will reassess. Strict I's and O's Daily weights (6) Chronic kidney disease: Chronic kidney disease, suspected stage III Renally dose medications Avoid nephrotoxins (7) Medical non-compliance: Declines Canela removal. Discussed we may offer assistance with catheterization or standing if he is having difficulty doing so himself. Family will try to speak with him again, at current time they decline Canela removal, understand risk of complications with infection. Discussed also with case management, PT, continue working on standing and mobility. Plan Esophagitis: Restart pantoprazole, sucralfate. Follow-up with surgery. Urine retention: History of urine retention. Resume self-catheterization with Canela removal. Monitor for symptoms of retention. DVT prophylaxis: Lovenox CODE STATUS: Full code Attestations 2 Medical Necessity Statement*: Continue admission for assessment management following hip fracture and repair, pending approval for SNF. Diagnoses Closed intertrochanteric fracture of left hip S72.320I Encounter type: initial encounter Fracture alignment: displaced Urinary tract infection N39.0 Essential hypertension I10 Ileus K56.7 New onset of congestive heart failure I50.9 Chronic kidney disease N18.9 Medical non-compliance Z91.199
[2024-01-27] MEDS: sucralfate 1 gm Tablet PO (20:00)
[2024-01-27] MEDS: enoxaparin 40 mg/0.4 mL Syringe SUBCUT (20:00)
[2024-01-27] MEDS: pantoprazole DR 40 mg Tablet PO (20:00)
[2024-01-27] MEDS: sennosides 8.6 mg Tablet 17.2 MG PO (21:10)
[2024-01-28] VITALS (8 sets, daily range): BP systolic 122–144; BP diastolic 57–97; PULSE 55–72; RESP 14–18; TEMP 36.5–37.3; O2SAT 92–98
[2024-01-28 05:08] LABS: Basophils # 0.1 10^3/uL (0.0-0.1); Basophils % 1.2 %; Eosinophils # 0.3 10^3/uL (0.0-0.8); Eosinophils % 3.8 %; Hematocrit 31.1 % (37-53); Lymphocytes # 1.5 10^3/uL (0.8-4.8); Lymphocytes % 22.2 %; Mean Corpuscular HGB Conc 32.5 g/dL (30-55); Mean Corpuscular Hemoglobin 30.5 pg (27-33); Mean Platelet Volume 9.6 fL (7.4-10.4); Monocytes # 0.9 10^3/uL (0.2-0.9); Monocytes % 13.8 %; Neutrophils # 3.76 10^3/uL (1.8-7.7); Nucleated Red Blood Cells % 0 %; Platelet Count 338 10^3/cmm (157-399); Red Blood Count 3.31 10^6/uL (3.85-5.65); Red Cell Distribution Width 13.1 % (12.1-15.1); White Blood Count 6.59 10^3/uL (3.29-11.43)
[2024-01-28] MEDS: sucralfate 1 gm Tablet PO ×2 (06:08→17:25)
[2024-01-28] MEDS: sennosides-docusate Tablet 1 TAB PO (07:44)
[2024-01-28] MEDS: amlodipine 5 mg Tablet PO (07:45)
[2024-01-28] MEDS: pantoprazole DR 40 mg Tablet PO ×2 (07:45→17:25)
[2024-01-28] MEDS: polyethylene glycol 3350 Pkt 17 gm PO ×2 (09:37→22:40)
--- NOTE | 2024-01-28 17:24 | P.PN_ITS ---
Subjective 2 Subjective: Patient reports he is doing well. He is using incentive spirometer. Vitals/I&O/Wt Last Vital Signs Temp 98.7 F 01/28/24 16:00 Pulse 62 01/28/24 16:00 Resp 17 01/28/24 16:00 BP 133/73 01/28/24 16:00 Pulse Ox 92 01/28/24 16:00 O2 Del Method Room Air 01/28/24 16:00 O2 Flow Rate 2 01/20/24 12:30 01/28/24 01/28/24 01/28/24 06:59 14:59 22:59 Intake Total 720 / 720 Output Total 2300 / 4000 1600 / 1600 Balance -2300 / -3160 -880 / -880 Physical Exam 2 Narrative: Sitting up in chair. Const: COMMON NORMALS: patient oriented x3 and alert GENERAL APPEARANCE: c ooperative ORIENTATION/CONSCIOUSNESS: Yes awake HENMT: COMMON NORMALS: oropharynx normal Neck/C-Spine: COMMON NORMALS: no JVD Resp: COMMON NORMALS: normal respiratory effort and clear to auscultation bilaterally AUSCULTATION: clear to auscultation bilaterally Cardio: COMMON NORMALS: no JVD, regular rhythm, S1 normal heart sound present, S2 normal heart sound present and No murmurs present (Cardio) RHYTHM: regular rhythm HEART SOUNDS: S1 normal heart sound present and S2 normal heart sound present GI: COMMON NORMALS: Normal to inspection, nondistended, normoactive bowel sounds present, Soft to palpation and non-tender PALPATION: Yes Soft to palpation Extremity: COMMON NORMALS: no joint enlargement and no pedal edema Neuro: COMMON NORMALS: patient oriented x3 and moves all extremities S ENSORIUM/ORIENTATION: Yes alert Skin: COMMON NORMALS: no rashes or lesions noted GENERAL SKIN EXAM: no rashes or lesions noted Urinary Catheter Management: Canela: Cath Placed During This Visit: yes Reason for Continuing Indwelling Catheter: Acute Urinary Retention or Obstruction Urinary Catheter Date of Insertion: 01/19/24 Urinary Catheter Time of Insertion: 12:45 Data 01/28/24 04:28 01/25/24 03:25 A&P Assessment and plan (1) Closed intertrochanteric fracture of left hip: Continues to work with incentive spirometer. Reviewed hemoglobin today up slightly to 1.1. Discussed with him. Platelets are normal. Continues with DVT prophylaxis with Lovenox. Physical therapy not available over the weekend, requesting to continue to work with ambulation with a walker. Revisited with him regarding risk of infection with Canela catheter. Revisit Canela removal. He has declined Canela removal has not been comfortable with his level of activity to be able to perform self-catheterization independently. Declined assistance. Pending authorization for SNF rehabilitation. Continue incentive spirometer. Status post surgery on 01/19 PT and OT Pain control Start DVT prophylaxis Obtain plain films of left knee Qualifiers: Encounter type: initial encounter Fracture alignment: displaced Qualified Code(s): S72.142A - Displaced intertrochanteric fracture of left femur, initial encounter for closed fracture (2) Urinary tract infection: Completed antibiotic course for UTI. Ceftriaxone stopped. At risk of recurrent infection as discussed as he declines to remove Canela catheter. Urine culture with Serratia marcescens sensitive to ceftriaxone. Patient reportedly self caths at home which makes him high risk (3) Essential hypertension: Reviewed BMP, kidney function appears to be close to baseline. Continue Norvasc Hydralazine as needed (4) Ileus: Resolved. Tolerating oral intake. Off PPI, sucralfate. Appears resolved. GI soft diet. Reassess tolerance. (5) New onset of congestive heart failure: Status so far compensated. Reviewed BMP, renal function close to baseline. Reviewed echo, normal ejection fraction, grade 1 diastolic dysfunction. Mildly dilated ascending aorta diameter 3.53. Suspected new CHF is reported with plans for echo today. Requested. Currently to me he appears compensated. Will reassess. Strict I's and O's Daily weights (6) Chronic kidney disease: Chronic kidney disease, suspected stage III Renally dose medications Avoid nephrotoxins (7) Medical non-compliance: Declines Canela removal. Discussed we may offer assistance with catheterization or standing if he is having difficulty doing so himself. Family will try to speak with him again, at current time they decline Canela removal, understand risk of complications with infection. Discussed also with case management, PT, continue working on standing and mobility. Plan Esophagitis: Restart pantoprazole, sucralfate. Follow-up with surgery. Urine retention: History of urine retention. Resume self-catheterization with Canela removal. Monitor for symptoms of retention. DVT prophylaxis: Lovenox CODE STATUS: Full code Attestations 2 Medical Necessity Statement*: Continue admission for assessment management following hip fracture and repair, pending approval for SNF. Diagnoses Closed intertrochanteric fracture of left hip S72.142A Encounter type: initial encounter Fracture alignment: displaced Urinary tract infection N39.0 Essential hypertension I10 Ileus K56.7 New onset of congestive heart failure I50.9 Chronic kidney disease N18.9 Medical non-compliance Z91.199
[2024-01-28] MEDS: sennosides 8.6 mg Tablet 17.2 MG PO (20:59)
[2024-01-28] MEDS: enoxaparin 40 mg/0.4 mL Syringe SUBCUT (20:59)
[2024-01-28] MEDS: oxyCODONE-APAP 5-325 mg Tablet 1 TAB PO (22:40)
[2024-01-29] VITALS (10 sets, daily range): BP systolic 111–156; BP diastolic 63–79; PULSE 57–70; RESP 15–18; TEMP 36.3–37.2; O2SAT 95–96
[2024-01-29 03:01] LABS: Basophils # 0.1 10^3/uL (0.0-0.1); Eosinophils # 0.2 10^3/uL (0.0-0.8); Eosinophils % 2.7 %; Lymphocytes # 1.6 10^3/uL (0.8-4.8); Lymphocytes % 21.3 %; Mean Corpuscular HGB Conc 32.8 g/dL (30-55); Mean Corpuscular Hemoglobin 30.8 pg (27-33); Mean Corpuscular Volume 94.2 fl (82-101); Mean Platelet Volume 9.7 fL (7.4-10.4); Neutrophils # 4.38 10^3/uL (1.8-7.7); Neutrophils % 60.2 %; Nucleated Red Blood Cells % 0 %; Platelet Count 359 10^3/cmm (157-399); Red Blood Count 3.08 10^6/uL (3.85-5.65); Red Cell Distribution Width 13.2 % (12.1-15.1); White Blood Count 7.28 10^3/uL (3.29-11.43)
[2024-01-29] MEDS: oxyCODONE-APAP 5-325 mg Tablet 1 TAB PO ×3 (05:43→22:30)
[2024-01-29] MEDS: sucralfate 1 gm Tablet PO ×2 (06:11→17:01)
[2024-01-29] MEDS: sennosides-docusate Tablet 1 TAB PO (08:05)
[2024-01-29] MEDS: pantoprazole DR 40 mg Tablet PO ×2 (08:05→17:01)
[2024-01-29] MEDS: amlodipine 5 mg Tablet PO (08:05)
[2024-01-29] MEDS: polyethylene glycol 3350 Pkt 17 gm PO ×2 (10:33→22:10)
--- NOTE | 2024-01-29 12:48 | PC.SOCIAL ---
IMM update Pg. 2 of IMM updated and reviewed with patient, who verbalized understanding. Copy provided.
--- NOTE | 2024-01-29 14:48 | P.PN_ITS ---
Subjective 2 Subjective: No new complaints today except he feels he may be developing a pressure sore. Medications: Reviewed: Yes Vitals/I&O/Wt Last Vital Signs Temp 97.5 F L 01/29/24 11:18 Pulse 60 01/29/24 11:18 Resp 18 01/29/24 14:20 BP 156/79 01/29/24 11:18 Pulse Ox 96 01/29/24 11:18 O2 Del Method Room Air 01/29/24 11:18 O2 Flow Rate 2 01/20/24 12:30 01/28/24 01/29/24 01/29/24 22:59 06:59 14:59 Intake Total 720 / 1440 680 / 2120 560 / 560 Output Total 1350 / 2950 1800 / 4750 1700 / 1700 Balance -630 / -1510 -1120 / -2630 -1140 / -1140 Weight last 48 hrs Weight 124.284 kg Physical Exam 2 Narrative: General: No acute distress, AO x3 HEENT: PERRLA, pupils bilaterally equal and reactive, pallors not present Chest: Normal vesicular breath sounds, no added sounds, equal good air entry bilaterally CVS: S1-S2 regular, no murmurs, no tachycardia, no gallops, no rubs Abdomen: Soft, nontender, no organomegaly, bowel sounds present Neuro: No focal deficits, no facial deformity, AO x3, power 5/5 in all limbs Extremities: Stage 1 pressure injury- erythema of skin involving the sacrum. Urinary Catheter Management: Canela: Cath Placed During This Visit: yes Reason for Continuing Indwelling Catheter: Acute Urinary Retention or Obstruction Urinary Catheter Date of Insertion: 01/19/24 Urinary Catheter Time of Insertion: 12:45 Data 01/29/24 02:18 01/25/24 03:25 A&P Assessment and plan (1) Closed intertrochanteric fracture of left hip: Continues to work with incentive spirometer. Reviewed hemoglobin today up slightly to 1.1. Discussed with him. Platelets are normal. Continues with DVT prophylaxis with Lovenox. Physical therapy not available over the weekend, requesting to continue to work with ambulation with a walker. Revisited with him regarding risk of infection with Canela catheter. Revisit Canela removal. He has declined Canela removal has not been comfortable with his level of activity to be able to perform self-catheterization independently. Declined assistance. Pending authorization for SNF rehabilitation. Continue incentive spirometer. Status post surgery on 01/19 PT and OT Pain control Start DVT prophylaxis Obtain plain films of left knee Qualifiers: Encounter type: initial encounter Fracture alignment: displaced Qualified Code(s): S72.142A - Displaced intertrochanteric fracture of left femur, initial encounter for closed fracture (2) Urinary tract infection: Completed antibiotic course for UTI. Ceftriaxone stopped. At risk of recurrent infection as discussed as he declines to remove Canela catheter. Urine culture with Serratia marcescens sensitive to ceftriaxone. Patient reportedly self caths at home which makes him high risk (3) Essential hypertension: Reviewed BMP, kidney function appears to be close to baseline. Continue Norvasc Hydralazine as needed (4) Ileus: Resolved. Tolerating oral intake. Off PPI, sucralfate. Appears resolved. GI soft diet. Reassess tolerance. (5) New onset of congestive heart failure: Status so far compensated. Reviewed BMP, renal function close to baseline. Reviewed echo, normal ejection fraction, grade 1 diastolic dysfunction. Mildly dilated ascending aorta diameter 3.53. Suspected new CHF is reported with plans for echo today. Requested. Currently to me he appears compensated. Will reassess. Strict I's and O's Daily weights (6) Chronic kidney disease: Chronic kidney disease, suspected stage III Renally dose medications Avoid nephrotoxins (7) Medical non-compliance: Declines Canela removal. Discussed we may offer assistance with catheterization or standing if he is having difficulty doing so himself. Family will try to speak with him again, at current time they decline Canela removal, understand risk of complications with infection. Discussed also with case management, PT, continue working on standing and mobility. Plan Esophagitis: Restart pantoprazole, sucralfate. Follow-up with surgery. Urine retention: History of urine retention. Resume self-catheterization with Canela removal. Monitor for symptoms of retention. DVT prophylaxis: Lovenox CODE STATUS: Full code Plan for today: January 29, 2024 Overall clinically improving. Ready for discharge however unable to get a status of insurance authorization over the long Labor Day weekend. He wishes to maintain Canela catheterization. He is well aware of the risk of infection with a Canela catheter in place. He is willing to follow-up with urology as an outpatient. Awaiting appropriate disposition planning Stage I pressure injury over the sacrum with mildly developing erythema of the skin. Started zinc oxide topical ointment. Attestations 2 Medical Necessity Statement*: Awaiting appropriate disposition planning Coding Level of Care Code Acute Code for Chg Fwd Straight Forward/Low MDM includes number and complexity of problems actively addressed during encounter, amount and/or complexity of data reviewed/ordered and described risk of complication, morbidity or mortality of management as documented Diagnoses Closed intertrochanteric fracture of left hip S72.142A Encounter type: initial encounter Fracture alignment: displaced Urinary tract infection N39.0 Essential hypertension I10 Ileus K56.7 New onset of congestive heart failure I50.9 Chronic kidney disease N18.9 Medical non-compliance Z91.199
[2024-01-29] MEDS: zinc oxide oint 30 gm 1 APPLIC TOPICAL (17:01)
[2024-01-29] MEDS: sennosides 8.6 mg Tablet 17.2 MG PO (20:33)
[2024-01-29] MEDS: enoxaparin 40 mg/0.4 mL Syringe SUBCUT (20:33)
[2024-01-30] VITALS (9 sets, daily range): BP systolic 124–150; BP diastolic 62–79; PULSE 60–76; RESP 16–19; TEMP 36.5–37.2; O2SAT 96–97
[2024-01-30] MEDS: sucralfate 1 gm Tablet PO ×2 (06:07→17:08)
[2024-01-30] MEDS: amlodipine 5 mg Tablet PO (08:55)
[2024-01-30] MEDS: oxyCODONE-APAP 5-325 mg Tablet 1 TAB PO ×2 (08:58→20:05)
[2024-01-30] MEDS: sennosides-docusate Tablet 1 TAB PO (08:58)
[2024-01-30] MEDS: pantoprazole DR 40 mg Tablet PO ×2 (08:58→17:08)
[2024-01-30] MEDS: polyethylene glycol 3350 Pkt 17 gm PO (11:02)
--- NOTE | 2024-01-30 11:20 | P.PN_ITS ---
Subjective 2 Subjective: No acute interim events. Wants to continue his Canela catheter. Erythema over sacrum is improving after initiation of zinc oxide ointment. We are still awaiting authorization Medications: Reviewed: Yes Vitals/I&O/Wt Last Vital Signs Temp 99.0 F 01/30/24 10:27 Pulse 72 01/30/24 10:27 Resp 19 H 01/30/24 10:27 BP 141/78 01/30/24 10:27 Pulse Ox 97 01/30/24 10:27 O2 Del Method Room Air 01/30/24 10:27 O2 Flow Rate 2 01/20/24 12:30 01/29/24 01/30/24 01/30/24 22:59 06:59 14:59 Intake Total 1200 / 1760 480 / 2240 600 / 600 Output Total 1550 / 3250 1200 / 4450 Balance -350 / -1490 -720 / -2210 600 / 600 Weight last 48 hrs Weight 124.284 kg Weight 124.284 kg Physical Exam 2 Narrative: General: No acute distress, AO x3 HEENT: PERRLA, pupils bilaterally equal and reactive, pallors not present Chest: Normal vesicular breath sounds, no added sounds, equal good air entry bilaterally CVS: S1-S2 regular, no murmurs, no tachycardia, no gallops, no rubs Abdomen: Soft, nontender, no organomegaly, bowel sounds present Neuro: No focal deficits, no facial deformity, AO x3, power 5/5 in all limbs Extremities: Stage 1 pressure injury- erythema of skin involving the sacrum. Urinary Catheter Management: Canela: Cath Placed During This Visit: yes Reason for Continuing Indwelling Catheter: Other Urinary Catheter Date of Insertion: 01/19/24 Urinary Catheter Time of Insertion: 12:45 Data 01/29/24 02:18 01/25/24 03:25 A&P Assessment and plan (1) Closed intertrochanteric fracture of left hip: Continues to work with incentive spirometer. Reviewed hemoglobin today up slightly to 1.1. Discussed with him. Platelets are normal. Continues with DVT prophylaxis with Lovenox. Physical therapy not available over the weekend, requesting to continue to work with ambulation with a walker. Revisited with him regarding risk of infection with Canela catheter. Revisit Canela removal. He has declined Canela removal has not been comfortable with his level of activity to be able to perform self-catheterization independently. Declined assistance. Pending authorization for SNF rehabilitation. Continue incentive spirometer. Status post surgery on 01/19 PT and OT Pain control Start DVT prophylaxis Obtain plain films of left knee Qualifiers: Encounter type: initial encounter Fracture alignment: displaced Qualified Code(s): S72.142A - Displaced intertrochanteric fracture of left femur, initial encounter for closed fracture (2) Urinary tract infection: Completed antibiotic course for UTI. Ceftriaxone stopped. At risk of recurrent infection as discussed as he declines to remove Canela catheter. Urine culture with Serratia marcescens sensitive to ceftriaxone. Patient reportedly self caths at home which makes him high risk (3) Essential hypertension: Reviewed BMP, kidney function appears to be close to baseline. Continue Norvasc Hydralazine as needed (4) Ileus: Resolved. Tolerating oral intake. Off PPI, sucralfate. Appears resolved. GI soft diet. Reassess tolerance. (5) New onset of congestive heart failure: Status so far compensated. Reviewed BMP, renal function close to baseline. Reviewed echo, normal ejection fraction, grade 1 diastolic dysfunction. Mildly dilated ascending aorta diameter 3.53. Suspected new CHF is reported with plans for echo today. Requested. Currently to me he appears compensated. Will reassess. Strict I's and O's Daily weights (6) Chronic kidney disease: Chronic kidney disease, suspected stage III Renally dose medications Avoid nephrotoxins (7) Medical non-compliance: Declines Canela removal. Discussed we may offer assistance with catheterization or standing if he is having difficulty doing so himself. Family will try to speak with him again, at current time they decline Canela removal, understand risk of complications with infection. Discussed also with case management, PT, continue working on standing and mobility. Plan Esophagitis: Restart pantoprazole, sucralfate. Follow-up with surgery. Urine retention: History of urine retention. Resume self-catheterization with Canela removal. Monitor for symptoms of retention. DVT prophylaxis: Lovenox CODE STATUS: Full code Plan for today: January 29, 2024 Overall clinically improving. Ready for discharge however unable to get a status of insurance authorization over the long Labor Day weekend. He wishes to maintain Canela catheterization. He is well aware of the risk of infection with a Canela catheter in place. He is willing to follow-up with urology as an outpatient. Awaiting appropriate disposition planning Stage I pressure injury over the sacrum with mildly developing erythema of the skin. Started zinc oxide topical ointment. Plan for today January 30, 2024. No acute interim events. Patient wishes to maintain his Canela catheterization. He is participating with physical therapy. Exhibiting decreased endurance, decreased strength and poor balance. Likely to benefit from continued therapy to improve endurance and lower extremity strength. Awaiting authorization from insurance given transition to SNF. Attestations 2 Medical Necessity Statement*: Awaiting appropriate disposition planning Coding Level of Care Code Acute Code for Chg Fwd Straight Forward/Low MDM includes number and complexity of problems actively addressed during encounter, amount and/or complexity of data reviewed/ordered and described risk of complication, morbidity or mortality of management as documented Diagnoses Closed intertrochanteric fracture of left hip S72.142A Encounter type: initial encounter Fracture alignment: displaced Urinary tract infection N39.0 Essential hypertension I10 Ileus K56.7 New onset of congestive heart failure I50.9 Chronic kidney disease N18.9 Medical non-compliance Z91.199
[2024-01-30] MEDS: sennosides 8.6 mg Tablet 17.2 MG PO (20:04)
[2024-01-30] MEDS: enoxaparin 40 mg/0.4 mL Syringe SUBCUT (20:04)
[2024-01-31] VITALS (10 sets, daily range): BP systolic 117–149; BP diastolic 64–77; PULSE 59–79; RESP 16–20; TEMP 36.4–37.1; O2SAT 90–97
[2024-01-31 06:11] LABS: Basophils # 0.1 10^3/uL (0.0-0.1); Basophils % 1.1 %; Eosinophils # 0.2 10^3/uL (0.0-0.8); Eosinophils % 3.3 %; Hematocrit 31.3 % (37-53); Lymphocytes # 1.3 10^3/uL (0.8-4.8); Mean Corpuscular HGB Conc 32.6 g/dL (30-55); Mean Corpuscular Hemoglobin 30.2 pg (27-33); Mean Corpuscular Volume 92.6 fl (82-101); Mean Platelet Volume 9.1 fL (7.4-10.4); Monocytes # 0.7 10^3/uL (0.2-0.9); Monocytes % 10.4 %; Neutrophils # 4.05 10^3/uL (1.8-7.7); Neutrophils % 63.6 %; Nucleated Red Blood Cells % 0 %; Platelet Count 366 10^3/cmm (157-399); Red Blood Count 3.38 10^6/uL (3.85-5.65); Red Cell Distribution Width 13.2 % (12.1-15.1); White Blood Count 6.36 10^3/uL (3.29-11.43)
[2024-01-31] MEDS: sucralfate 1 gm Tablet PO ×2 (06:21→17:50)
[2024-01-31 06:27] LABS: Alanine Aminotransferase 22 U/L (0-41); Albumin Level 3.6 g/dL (3.5-5.2); Alkaline Phosphatase 125 U/L (40-130); Anion Gap 16.2 (5-19); Aspartate Amino Transferase 19 U/L (0-40); Blood Urea Nitrogen 33 mg/dL (8-23); Calcium 8.5 mg/dL (8.5-10.5); Carbon Dioxide 24 mmol/L (22-29); Chloride 97 mmol/L (98-107); Creatinine Clr Calc Pharmacy 47.2594; Globulin 2.4 g/dL (1.3-4.6); Glucose 108 mg/dL (65-115); Osmolality Calculated 284 mOsm/kg (285-295); Potassium 4.2 mmol/L (3.5-5.1); Sodium 133 mmol/L (136-145); Total Bilirubin 0.5 mg/dL (0.15-1.2)
[2024-01-31] MEDS: amlodipine 5 mg Tablet PO (08:08)
[2024-01-31] MEDS: sennosides-docusate Tablet 1 TAB PO (08:09)
[2024-01-31] MEDS: pantoprazole DR 40 mg Tablet PO ×2 (08:09→17:50)
[2024-01-31] MEDS: oxyCODONE-APAP 5-325 mg Tablet 1 TAB PO ×2 (09:02→21:40)
--- NOTE | 2024-01-31 13:25 | P.PN_ITS ---
Subjective 2 Subjective: Hospital course, labs appreciated. Seen with multiple family members at bedside. No acute events overnight. Has remained hemodynamically stable and afebrile on room air. Working with physical therapy. Medications: Reviewed: Yes Vitals/I&O/Wt Last Vital Signs Temp 98.4 F 01/31/24 12:03 Pulse 69 01/31/24 12:03 Resp 17 01/31/24 12:03 BP 130/64 01/31/24 12:03 Pulse Ox 95 01/31/24 12:03 O2 Del Method Room Air 01/31/24 12:03 O2 Flow Rate 2 01/20/24 12:30 01/30/24 01/31/24 01/31/24 22:59 06:59 14:59 Intake Total 240 / 1440 480 / 480 Output Total 2850 / 4200 1350 / 5550 900 / 900 Balance -2610 / -2760 -1350 / -4110 -420 / -420 Weight last 48 hrs Weight 113.398 kg Weight 124.284 kg Physical Exam 2 Narrative: General: No acute distress, AO x3 HEENT: PERRLA, pupils bilaterally equal and reactive, pallors not present Chest: Normal vesicular breath sounds, no added sounds, equal good air entry bilaterally CVS: S1-S2 regular, no murmurs, no tachycardia, no gallops, no rubs Abdomen: Soft, nontender, no organomegaly, bowel sounds present Neuro: No focal deficits, no facial deformity, AO x3, power 5/5 in all limbs Extremities: Stage 1 pressure injury- erythema of skin involving the sacrum. Urinary Catheter Management: Canela: Cath Placed During This Visit: yes Reason for Continuing Indwelling Catheter: Other Urinary Catheter Date of Insertion: 01/19/24 Urinary Catheter Time of Insertion: 12:45 Data 01/31/24 05:40 01/31/24 05:40 A&P Assessment and plan (1) Closed intertrochanteric fracture of left hip: Postop. Hemoglobin stable. Working well with physical therapy. Continue with anticoagulation for DVT prophylaxis. Canela still in place as patient has been reluctant and removing Canela. Patient does straight cath at home chronically. Discussed in detail with the patient regarding high concerns for Canela related UTI. Discussed we can do bladder scan every shift along with straight catheterization as needed. Discussed importance of early Canela removal. Patient is agreeable today. Continue with aggressive pulmonary toilet. Qualifiers: Encounter type: initial encounter Fracture alignment: displaced Qualified Code(s): S72.142A - Displaced intertrochanteric fracture of left femur, initial encounter for closed fracture (2) Urinary tract infection: Completed antibiotic course for UTI. Ceftriaxone stopped. At risk of recurrent infection as discussed as he declines to remove Canela catheter. Urine culture with Serratia marcescens sensitive to ceftriaxone. Patient reportedly self caths at home which makes him high risk (3) Essential hypertension: Goal blood pressure less than 140/90 mmHg. Continue with home dose of amlodipine. (4) Ileus: Resolved. Tolerating oral intake. Off PPI, sucralfate. Appears resolved. GI soft diet. Reassess tolerance. (5) New onset of congestive heart failure: Status so far compensated. Reviewed BMP, renal function close to baseline. Reviewed echo, normal ejection fraction, grade 1 diastolic dysfunction. Mildly dilated ascending aorta diameter 3.53. Suspected new CHF is reported with plans for echo today. Requested. Currently to me he appears compensated. Will reassess. Strict I's and O's Daily weights (6) Chronic kidney disease: Chronic kidney disease, suspected stage III. Renal functions at baseline. Renally dose medications Avoid nephrotoxins (7) Medical non-compliance: Declines Canela removal. Discussed we may offer assistance with catheterization or standing if he is having difficulty doing so himself. Family will try to speak with him again, at current time they decline Canela removal, understand risk of complications with infection. Discussed also with case management, PT, continue working on standing and mobility. Plan Esophagitis: Seen on EGD. Continue with Protonix and Carafate. Urine retention: History of urine retention. Resume self-catheterization with Canela removal. Monitor for symptoms of retention. DVT prophylaxis: Lovenox CODE STATUS: Full code Protonix twice daily will be sufficient for PUD prophylaxis. Attestations 2 Medical Necessity Statement*: Requires further hospitalization in a patient postoperative for ORIF, complicated by anemia in setting of esophagitis while safe discharge planning is sought. Diagnoses Closed intertrochanteric fracture of left hip S72.142A Encounter type: initial encounter Fracture alignment: displaced Urinary tract infection N39.0 Essential hypertension I10 Ileus K56.7 New onset of congestive heart failure I50.9 Chronic kidney disease N18.9 Medical non-compliance Z91.199
--- NOTE | 2024-01-31 13:50 | PC.SOCIAL ---
IMM Updated Updated pt on IMM. No questions voiced. Provided pt a copy. Initialed, dated, & timed copy in chart.
--- NOTE | 2024-01-31 16:41 | PC.NURSE ---
This nurse responded to the pt request to see his nurse. I get into the room and the pt is upset. He claimed he needed someone to show him how to self cath while maintaining sterility. When options were discussed, the pt did not seem like he was willing to try. So, I straight cathed him myself. While in the room with pt, PT came in to work with him. Him and his expressed concerns of how he could do this himself with a walker and not being able to stand. Vick, PT, explained to them that he can stand just needs SBA. The and pt did not seem to understand that someone would need to accompany him until he is more steady on his feet. The continued to argue with PT, to which PT offered to assist him with getting up and practicing the proper stance to allow him to cath himself. The pt told him No, I did therapy yesterday and was up to the potty 2 times last night! My leg is swollen, I'm not doing it today. At this point I left the room.
--- NOTE | 2024-01-31 19:33 | PC.NURSE ---
pt felt the need to void, self cath with nurse supervision, 450 output.
[2024-01-31] MEDS: enoxaparin 40 mg/0.4 mL Syringe SUBCUT (21:39)
[2024-01-31] MEDS: sennosides 8.6 mg Tablet 17.2 MG PO (21:40)
[2024-02-01 04:00] VITALS: BP 134/76; PULSE 62; RESP 17; TEMP 36.5; O2SAT 97
[2024-02-01 06:00] VITALS: BMI 33.1
[2024-02-01] MEDS: sucralfate 1 gm Tablet PO (06:26)
[2024-02-01 07:15] VITALS: BP 129/75; PULSE 63; RESP 18; TEMP 36.4; O2SAT 94
[2024-02-01] MEDS: pantoprazole DR 40 mg Tablet PO (08:24)
[2024-02-01] MEDS: amlodipine 5 mg Tablet PO (08:24)
[2024-02-01] MEDS: sennosides-docusate Tablet 1 TAB PO (08:24)
--- NOTE | 2024-02-01 10:58 | PM.DCS ---
Discharge Providers Date of Admission: 01/19/24 13:18 Date of Discharge: February 01, 2024 Attending Provider at Admission: Gasper Peralta MD Attending Provider at Discharge: Jake Melendez MD Consults: Orthopedics: Dr. Morales Surgery: Dr. Lai Primary Care Provider: Deniz Up DO Diagnoses at Discharge Discharge Diagnosis (1) Closed intertrochanteric fracture of left hip: Status: Acute Qualifiers: Encounter type: initial encounter Fracture alignment: displaced Qualified Code(s): S72.142A - Displaced intertrochanteric fracture of left femur, initial encounter for closed fracture (2) Urinary tract infection: Status: Acute (3) Essential hypertension: Status: Chronic (4) Ileus: Status: Acute (5) New onset of congestive heart failure: Status: Acute (6) Chronic kidney disease: Status: Chronic (7) Medical non-compliance: Status: Acute Reason for Visit Reason for Visit: left hip pain Brief History: History as per HPI: Neil Lowe is a 78 year old male who missed a step coming down from the ladder fell on the ground. In the ER he was diagnosed with hip fracture. Dr. Morales consulted. Patient stating that he has never been diagnosed with CHF stating that he has been noticing lower extremity swelling for last 1 month, he had never had any PA or stent placed in his heart. Patient self caths at home for BPH. Does not take any medication other than amlodipine for blood pressure. Hospital Course Hospital Course Patient was admitted to the hospital further evaluation and management of hip fracture. On admission both surgery and orthopedic surgery was consulted. Because of hematemesis with concerns for Lizette-Kennedy tear he underwent endoscopy on 01/19 which showed severe esophagitis along with ileus. He underwent ORIF on 01/19. He was started on PPIs along with Carafate. At first NG tube was placed which was gradually removed once ileus resolved. Patient has been tolerating regular diet well for now. Patient during hospitalization was reluctant and removal of Canela catheter because of baseline daily self-catheterization status. He was explained in detail regarding need for Canela removal at the earliest as he would be at a higher risk of catheter associated UTI. Eventually he was agreeable on removal of Canela catheter on 01/30. Patient continue to work well with physical therapy. Safe discharge plan were discussed in detail with the patient and patient and family were interested in transition to SNF for a short while for rehabitation. He has been discharged in hemodynamically stable condition to SNF for further rehabilitation. He is to take Protonix twice daily along with Carafate twice daily for next 4 weeks followed by Protonix once daily. Flomax 0.4 mg daily has been added to his medication list. He is to follow-up with his primary care provider within next 1 week and with his orthopedic surgeon within next 2 weeks. Physical Exam Narrative: General: No acute distress, AO x3 HEENT: PERRLA, pupils bilaterally equal and reactive, pallors not present Chest: Normal vesicular breath sounds, no added sounds, equal good air entry bilaterally CVS: S1-S2 regular, no murmurs, no tachycardia, no gallops, no rubs Abdomen: Soft, nontender, no organomegaly, bowel sounds present Neuro: No focal deficits, no facial deformity, AO x3, power 5/5 in all limbs Extremities: Stage 1 pressure injury- erythema of skin involving the sacrum. Urinary Catheter Management: Canela: Cath Placed During This Visit: yes, but has since been removed by the nurse Reason for Continuing Indwelling Catheter: Other Urinary Catheter Date of Insertion: 01/19/24 Urinary Catheter Time of Insertion: 12:45 Date Urinary Catheter Removed: 01/31/24 Time Urinary Catheter Discontinued: 13:00 Discharge Data Studies Completed and Pending Completed Studies During Hospitalization Category Date Time Status CT abdomen pelvis wo con [id number] Stat Cat Scan 01/19/24 22:19 Completed XR chest 1V portable [id number] Urgent Exams 01/19/24 10:50 Completed XR hip LT 2-3V wo/w pel* [id number] Routine Exams 01/20/24 08:00 Completed XR hip LT 2-3V wo/w pel* [id number] Stat Exams 01/19/24 10:50 Completed XR knee LT 3V* [id number] Routine Exams 01/21/24 13:17 Completed CV. echo complete* [id number] Routine Ultrasound 01/22/24 18:53 Completed Pending at discharge Category Date Time Status Fecal Occult Blood [Immunochemical Fecal OCB] Routine Lab 01/24/24 17:51 Ordered Radiology Impressions Chest X-Ray 01/19/24 10:50 Impression: Atherosclerosis. Abdomen/Pelvis CT 01/19/24 22:19 IMPRESSION: 1. Multiple prominent gas-filled loops of small bowel throughout the abdomen without definite transition point. Findings may represent adynamic ileus. Low-grade small bowel obstruction is possible but considered less likely. Recommend radiographic follow-up. 2. Marked gastric distension with air-fluid level. Patient may benefit from nasogastric decompression. 3. Acute comminuted left intertrochanteric femur fracture. 4. Small hiatal hernia. 5. Colonic diverticulosis. 6. Prostatomegaly. Correlate with PSA levels. Hip/Pelvis X-Ray 01/20/24 08:00 IMPRESSION: 1. Satisfactory ORIF of an intertrochanteric fracture of the LEFT hip. Knee X-Ray 01/21/24 13:17 IMPRESSION: 1. No acute osseous findings. 2. Tricompartmental degenerative changes most pronounced in the medial compartment. Laboratory Results WBC 6.36 10^3/uL (3.29-11.43) 01/31/24 05:40 RBC 3.38 10^6/uL (3.85-5.65) L 01/31/24 05:40 Hgb 10.20 g/dL (11.27-16.99) L 01/31/24 05:40 Hct 31.3 % (37-53) L 01/31/24 05:40 MCV 92.6 fl (82-101) 01/31/24 05:40 MCH 30.2 pg (27-33) 01/31/24 05:40 MCHC 32.6 g/dL (30-55) 01/31/24 05:40 RDW 13.2 % (12.1-15.1) 01/31/24 05:40 Plt Count 366 10^3/cmm (157-399) 01/31/24 05:40 MPV 9.1 fL (7.4-10.4) 01/31/24 05:40 Neut % (Auto) 63.6 % 01/31/24 05:40 Lymph % (Auto) 20.0 % 01/31/24 05:40 [place] % (Auto) 10.4 % 01/31/24 05:40 Eos % (Auto) 3.3 % 01/31/24 05:40 Baso % (Auto) 1.1 % 01/31/24 05:40 Neut # (Auto) 4.05 10^3/uL (1.8-7.7) 01/31/24 05:40 Lymph # (Auto) 1.3 10^3/uL (0.8-4.8) 01/31/24 05:40 [place] # (Auto) 0.7 10^3/uL (0.2-0.9) 01/31/24 05:40 Eos # (Auto) 0.2 10^3/uL (0.0-0.8) 01/31/24 05:40 Baso # (Auto) 0.1 10^3/uL (0.0-0.1) 01/31/24 05:40 Nucleated RBC % (auto) 0 % 01/31/24 05:40 Total Counted 100 (0-100) 01/19/24 11:11 Atypical Lymphs % 0.0 % (0-5) 01/19/24 11:11 Absolute Neutrophils 9.9 10^3/cmm (1.4-6.5) H 01/19/24 11:11 Segmented Neutrophils 68 % 01/19/24 11:11 Abs Segm Neuts (Man) 8.7 10/cmm (1.6-7.1) H 01/19/24 11:11 Band Neutrophils 9.0 % 01/19/24 11:11 Abs Band Neuts (Man) 1.2 10^3/cmm (0.0-1.2) 01/19/24 11:11 Absolute Lymphocytes 2.2 10^3/cmm (1.2-3.4) 01/19/24 11:11 Lymphocytes (Manual) 17 % 01/19/24 11:11 Monocytes (Manual) 2.0 % 01/19/24 11:11 Absolute Monocytes 0.3 10^3/cmm (0.1-0.6) 01/19/24 11:11 Eosinophils (Manual) 2 % 01/19/24 11:11 Absolute Eosinophils 0.3 10^3/cmm (0.0-0.7) 01/19/24 11:11 Basophils (Manual) 0.0 % 01/19/24 11:11 Absolute Basophils 0.0 10^3/cmm (0.0-0.2) 01/19/24 11:11 Metamyelocytes 1.0 % 01/19/24 11:11 Myelocytes 1.0 % 01/19/24 11:11 Nucleated RBCs # 0.0 /100WBC 01/31/24 05:40 Platelet Estimate Normal (Normal) 01/19/24 11:11 Sodium 133 mmol/L (136-145) L 01/31/24 05:40 Potassium 4.2 mmol/L (3.5-5.1) 01/31/24 05:40 Chloride 97 mmol/L (98-107) L 01/31/24 05:40 Carbon Dioxide 24 mmol/L (22-29) 01/31/24 05:40 Anion Gap 16.2 (5-19) 01/31/24 05:40 BUN 33 mg/dL (8-23) H 01/31/24 05:40 Creatinine 1.7 mg/dL (0.7-1.2) H 01/31/24 05:40 GFR Calculation Not Reportable 01/31/24 05:40 Glucose 108 mg/dL (65-115) 01/31/24 05:40 Calculated Osmolality 284 mOsm/kg (285-295) L 01/31/24 05:40 Calcium 8.5 mg/dL (8.5-10.5) 01/31/24 05:40 Phosphorus 3.4 mg/dL (2.5-4.5) 01/22/24 04:21 Magnesium 2.2 mg/dL (1.7-2.3) 01/24/24 04:00 Total Bilirubin 0.5 mg/dL (0.15-1.2) 01/31/24 05:40 AST 19 U/L (0-40) 01/31/24 05:40 ALT 22 U/L (0-41) 01/31/24 05:40 Alkaline Phosphatase 125 U/L (40-130) 01/31/24 05:40 Total Protein 6.0 g/dL (6.6-8.7) L 01/31/24 05:40 Albumin 3.6 g/dL (3.5-5.2) 01/31/24 05:40 Globulin 2.4 g/dL (1.3-4.6) 01/31/24 05:40 PSA Screen 5.87 ng/mL (0-4) H 01/19/24 23:21 Vitamin B12 656 pg/mL (232-1245) 01/19/24 11:11 Urine Color Yellow (Yellow) 01/19/24 13:04 Urine Appearance Clear (CLEAR) 01/19/24 13:04 Urine pH 5.5 (5-7) 01/19/24 13:04 Ur Specific [place] 1.012 (1.005-1.030) 01/19/24 13:04 Urine Protein 1+ (Negative) A 01/19/24 13:04 Urine Glucose (UA) Negative (Normal) 01/19/24 13:04 Urine Ketones Trace (Negative) 01/19/24 13:04 Urine Blood Negative (Negative) 01/19/24 13:04 Urine Nitrate Positive (Negative) A 01/19/24 13:04 Urine Bilirubin Negative (Negative) 01/19/24 13:04 Urine Urobilinogen 0.2 mg/dL (Negative) 01/19/24 13:04 Ur Leukocyte Esterase 1+ (Negative) A 01/19/24 13:04 Urine RBC 0-2 /hpf (0-2) 01/19/24 13:04 Urine WBC 21-50 /hpf (0-5) H 01/19/24 13:04 Ur Squamous Epith Cells 0-5 /hpf (0-5) 01/19/24 13:04 Amorphous Sediment Not Reportable 01/19/24 13:04 Urine Bacteria None seen /hpf (NONE) 01/19/24 13:04 Hyaline Casts 3.71 /lpf 01/19/24 13:04 Vitals Last Vital Signs Temp 97.6 F 02/01/24 07:15 Pulse 63 02/01/24 07:15 Resp 18 02/01/24 07:15 BP 129/75 02/01/24 07:15 Pulse Ox 94 02/01/24 07:15 O2 Del Method Room Air 02/01/24 07:15 O2 Flow Rate 2 01/20/24 12:30 Discharge Plan Discharge Patient Disposition: Xfer SNF Condition: Stable Prescriptions: New sucralfate 1 gram Tablet 1 g PO BIDAC Qty: 60 0RF pantoprazole 40 mg Tablet,Delayed Release (Dr/Ec) 40 mg PO BID Qty: 60 0RF Flomax 0.4 mg capsule 0.4 mg PO Q24H Qty: 30 0RF Continued tadalafil 20 mg tablet 20 mg PO DAILY PRN (Reason: sexual activity) Qty: 20 12RF Rx Instructions: administer approximately 30min before sexual activity; NO NITROGLYCERIN! amlodipine 5 mg tablet 5 mg PO DAILY Discharge Orders: Discharge Order (Routine); Ordered 02/01/24 Ordered By: Jake Melendez Other Ambulatory Orders: DME: Walker (Order) Location: None Selected Ordered By: Lei Tamayo Referrals: [facility] [Outside] Deniz Up DO [Primary Care Provider] - 4-7 days Alfred Lai DO [Physician] - 2 weeks Rahul Morales DO [Physician] - 2 weeks (We have notified your physician's clinic of the need for a follow-up appointment to be scheduled. If you have not heard from them within the next 2 business days, please call them directly. PLEASE CALL DR MORALES OFFICE FOR APPOINTMENT [phone]) Discharge Diet: Cardiac Discharge Activity: As per PT/OT instructions Patient Instructions: Acute Wound Care (DC), GI Post Discharge Instructions w/ Anesthesia, Opioid Safety, Post Anesthesia Care Activity Restrictions/Additional Instructions: You are being discharged from the hospital today during which time you have been under the care of Dr. Plunkett. You had a left hip fracture. You were treated for this injury with left hip nail. You may resume you normal diet (including any special diets as directed by your primary doctor) as well as your home medications. You should follow up with you primary doctor if you have any questions regarding medication you took prior to your stay in the hospital. You may take your pain medication as prescribed. After the first few days, take your pain medication as needed. Do not drive or drink alcohol while taking your pain medication. Your injury may increase your risk of developing a blood clot,or DVT, in your arm or leg. This could potentially dislodge and travel to your lungs and become a life threatening condition called apulmonary embolus,or PE. You have been prescribed Lovenox to be taken to prevent this. Frequent movement of the feet will also help prevent this from occurring. If you develop any new or worsening cough, chestpain, bloody sputum or shortness of breath, call 911 or go to the EmergencyRoom. Always keep your surgical incision/dressing clean and dry. If you experience increasing pain at your incision site, redness, swelling, increasing discharge, foul odors, or fevers (greater than 100.4), night sweats or chills you should call the office at the above number. If you feel this is an emergency you should be evaluated in the Emergency Department of a nearby hospital. Orthopedic Patient Instructions Summary: Weight Bearing: Weight-bear as tolerated Activity: As tolerated. Diet: Regular. Wound Care: Keep dressing clean and dry. Anticoagulation: None because of GI bleed Pain Medication: Take only as needed. Ice, rest and elevation will be of great benefit. Please plan to follow-up wlth Dr Plunkett in 2 weeks. You will need to call the clinic [phone] to schedule this visit. Thank you far allowing me to participate in your care. Do not hesitate to call the office with any questions or concerns. Discharge Attestations Time Spent in Discharge Care*: greater than 30 min Specific Discharge Activities: educating patient, educating and/or supporting family/caregiver, discussing with pcp/other providers, discussing with shelter case manager/social workers/dc planners, documenting/other paperwork and evaluating patient/reviewing data Status at Discharge: Cognitive status at discharge: cognitively intact, Behavioral status at discharge: cooperative, Functional status at discharge: uses cane/walker, Overall status at discharge: patient is progressing back to baseline Quality Metrics Clinical Quality Measures [ No reported AMI, CVA or VTE this stay] Coding Level of Care Code 76906 Total time (in minutes) for Discharge: 60 Diagnoses Closed intertrochanteric fracture of left hip S72.142A Encounter type: initial encounter Fracture alignment: displaced Urinary tract infection N39.0 Essential hypertension I10 Ileus K56.7 New onset of congestive heart failure I50.9 Chronic kidney disease N18.9 Medical non-compliance Z91.199
[2024-02-01 12:21] VITALS: BP 153/74; PULSE 63; RESP 18; TEMP 36.5; O2SAT 96
[2024-02-01 14:04] LABS: SARS Covid-2 Antigen negative (Negative)
[2024-02-01 15:19] VITALS: BP 153/74; PULSE 63; RESP 18; TEMP 36.5; O2SAT 96
== END 2024-02-01 14:30 | disposition skilled nursing facility (03) | DRG 480 ==
LOC: ER 12:31 → MEDSURG 13:18
PROVIDERS: Internal Medicine; Orthopaedic Surgery; Student in an Organized Health Care Education/Training Program; Surgery; Admitting Provider Internal Medicine; Emergency Provider Physician Assistant; PCP Family Medicine; Visit Provider Student in an Organized Health Care Education/Training Program
PROC: 0DJ08ZZ Inspection of Upper Intestinal Tract, Via Natural or Artificial Opening Endoscopic (ICD-10-PCS; CPT 43235; principal; 2024-01-20 08:00)
PROC: 0QH736Z Insertion of Intramedullary Internal Fixation Device into Left Upper Femur, Percutaneous Approach (ICD-10-PCS; CPT 27245; 2024-01-20 08:00)
DX: S72.142A Displaced intertrochanteric fracture of left femur, initial encounter for closed fracture (principal); I50.31 Acute diastolic (congestive) heart failure; I13.0 Hypertensive heart and chronic kidney disease with heart failure and stage 1 through stage 4 chronic kidney disease, or unspecified chronic kidney disease; K56.7 Ileus, unspecified; N39.0 Urinary tract infection, site not specified; W11.XXXA Fall on and from ladder, initial encounter; Z11.52 Encounter for screening for COVID-19; N52.9 Male erectile dysfunction, unspecified; R33.9 Retention of urine, unspecified; N18.30 Chronic kidney disease, stage 3 unspecified; Z87.891 Personal history of nicotine dependence; K20.90 Esophagitis, unspecified without bleeding; B96.89 Other specified bacterial agents as the cause of diseases classified elsewhere; Z91.199 Patient's noncompliance with other medical treatment and regimen due to unspecified reason
CPT/HCPCS: 36415; 51702; 51798; 71045; 73502; 73562; 74176; 76000; 80048; 80053; 80069; 81003; 81015; 82607; 83735; 85007; 85014; 85018; 85025; 87077; 87086; 87186; 87426; 93005; 93306; 96372; 96374; 96375; 97110; 97116; 97161; 97165; 97530; 97535; 99285; C1713; G0103; J0131; J0330; J0360; J0690; J0696; J1100; J1170; J1650; J1940; J2270; J2371; J2405; J2470; J2704; J2765; J3010; J7030

== ENCOUNTER 2024-02-05 14:16 | Emergency (ER) | payer MEDICARE, MEDICAID, SELFPAY ==
[2024-02-05 14:25] VITALS: BP 129/68; PULSE 73; RESP 18; TEMP 36.8; O2SAT 98
--- NOTE | 2024-02-05 14:49 | USCV_ITS ---
Neil Lowe Age: 78 Gender: M : 1945 Exam Date: 02/05/2024 15:31 Ordering Phys: Kim Oneill Technologist: [place] [facility] [place]ication: LT LEG PAIN AND SWELLING PROCEDURES: Venous duplex imaging was performed in only the left lower extremity. The following venous structures were evaluated: common femoral vein, profunda vein, proximal portion of the greater saphenous vein, superficial femoral vein, and the popliteal vein. In addition, the posterior tibial and peroneal trunk were evaluated. FINDINGS: Normal 2-D Doppler and augmentation and compressibility throughout the lower extremity venous structures. Additional imaging through the proximal calf veins also reveals no thrombus. Limited evaluation of the greater saphenous vein is patent with no thrombus. CONCLUSIONS No DVT left lower extremity identified. Limited quality images, partial DVT not excluded. Dr. Yoselin Jaramillo DO (Electronically Signed) Final Date: 05 February 2024 15:55 S
--- NOTE | 2024-02-05 14:50 | W.ED.EXTPRO ---
HPI - Extremity Problem General: Chief complaint: Extremity Problem,Nontraumatic Stated complaint: left knee pain/swelling Time Seen by Provider: 02/05/24 14:23 Source: patient Mode of arrival: EMS Limitations: no limitations History of Present Illness: Patient is a 78-year-old male presents to ED today via EMS for evaluation of left leg swelling and left knee pain. Patient underwent left hip arthroplasty on 01/[address] Kuo. He was subsequently discharged to [place] for intermediate. Patient believes he may have injured his left knee initially on the fall that broke his hip. He did have x-rays performed while in the hospital which showed try compartmental arthritis. Daughter is concerned with the leg swelling. He patient feels like his incisions are healing. He states his pain to his hip is doing well but continues to have pain around the knee. He states he get a call today to schedule his post-op appointment with Dr. Kuo but call got disconnected and they never called back. MD Complaint: extremity pain, extremity swelling, joint swelling and joint pain Onset (ago): day(s) Pain Consistency: constant Location: right, lower extremity and knee Radiation: none Relieving factors: immobilization Exacerbating factors: weight bearing and walking Associated symptoms: Reports no associated symptoms; Deny chest pain or fever(s) Related Data Home Medications Medication Instructions Recorded Confirmed amlodipine 5 mg tablet 5 mg PO DAILY 01/19/24 01/19/24 Previous Rx's Medication Instructions Recorded tadalafil 20 mg tablet 20 mg PO DAILY PRN sexual activity 02/08/23 #20 tabs pantoprazole 40 mg tablet,delayed 40 mg PO BID #60 tabs 02/01/24 release sucralfate 1 gram tablet 1 g PO BIDAC #60 tabs 02/01/24 tamsulosin 0.4 mg capsule (Flomax) 0.4 mg PO Q24H #30 caps 02/01/24 self catheter #300 ea 02/02/24 Allergies Allergy/AdvReac Type Severity Reaction Status Date / Time ketorolac [From Toradol] Allergy Intermediate ADR-Vomitin Verified 08/09/23 08:49 g Review of Systems Const: Denies: fever(s), chills, body aches, fatigue or malaise Card: Denies: chest pain Resp: Denies: dyspnea Musc: Reports: extremity swelling (L LE) and joint pain (L knee) Neuro: Denies: numbness in extremities, weakness in extremities or sensory changes PFSH ED PFSH: Medical History Erectile dysfunction Urinary retention Hypertension Surgical History No significant past surgical history Family History Father , AT 89 Parkinson disease Mother , AT 82 Kidney failure Social History Smoking and tobacco/nicotine status: former use of tobacco/nicotine Alcohol intake: never Substance/Drug Use: never Marital status: Current occupational status: retired Physical Exam Const: COMMON NORMALS: no acute distress, average body habitus, patient oriented x3, no limitations, healthy appearing, alert and well nourished Resp: COMMON NORMALS: normal respiratory effort and clear to auscultation bilaterally AUSCULTATION: clear to auscultation bilaterally Cardio: COMMON NORMALS: regular rate and regular rhythm RATE: regular rate RHYTHM: regular rhythm Extremity: NARRATIVE EXTREMITY EXAM: swelling noted to L LE most likely normal post-operative; his L hip incisions are clean/well dressed and appear to be healing well; NV intact; pain around his L knee mainly to medial aspect; hard to fully evaluate for effusion given post op swelling of the extremity GENERAL: Yes normal exam except as noted Neuro: COMMON NORMALS: patient oriented x3, moves all extremities, no focal motor deficits and no sensory deficits noted SENSORIUM/ORIENTATION: Yes alert Course Vital Signs: Vital signs: Vital Signs Temperature 98.2 F 02/05/24 14:25 Pulse Rate 73 02/05/24 14:25 Respiratory Rate 18 02/05/24 14:25 Blood Pressure 142/65 02/05/24 14:53 Pulse Oximetry 98 02/05/24 14:53 Oxygen Delivery Me thod Room Air 02/05/24 14:53 MDM - Extremity (Nontraumatic) Medical Decision Making US negative for DVT. XR of L knee performed in hospital negative apart from degenerative/chronic changes. Will have CM help arrange his follow up appointment with Dr. Kuo this week. He can also address knee pain and any concerns for internal derangment here. All radiology interpretation(s) finalized by discharge Discharge Plan Discharge Patient Disposition: Home Clinical Impression: Left leg swelling Left knee pain Qualifiers: Chronicity: acute Qualified Code(s): M25.562 - Pain in left knee Condition: Stable Prescriptions: No Action tadalafil 20 mg tablet 20 mg PO DAILY PRN (Reason: sexual activity) Qty: 20 12RF Rx Instructions: administer approximately 30min before sexual activity; NO NITROGLYCERIN! (DME) self catheter 14 new zealander See Rx Instructions .Route .MEDSUPPLY Qty: 300 0RF Rx Instructions: self catheter 14 new zealander 7mm/0.18inch straight tip male 38cm/14.9inch amlodipine 5 mg tablet 5 mg PO DAILY sucralfate 1 gram Tablet 1 g PO BIDAC Qty: 60 0RF pantoprazole 40 mg Tablet,Delayed Release (Dr/Ec) 40 mg PO BID Qty: 60 0RF Flomax 0.4 mg capsule 0.4 mg PO Q24H Qty: 30 0RF Discharge Orders: Discharge ED (Routine); Ordered 02/05/24 Ordered By: Kim Oneill Referrals: Deniz Up DO [Primary Care Provider] - Coding Level of Care Code ED Public Safety Telecommunicator for Titus Parra
[2024-02-05 14:53] VITALS: BP 142/65; O2SAT 98
--- NOTE | 2024-02-05 16:40 | DCPLANNER ---
messaged ortho for er f/u
[2024-02-05 17:00] VITALS: BP 133/65; PULSE 64; O2SAT 95
--- NOTE | 2024-02-05 17:41 | PC.NURSE ---
report called to Nat at [facility], no further questions.
[2024-02-05 19:00] VITALS: BP 131/65
[2024-02-05 19:27] LABS: Charge for UA Resulting for Rev
[2024-02-05 19:29] LABS: Bilirubin Urine Negative (Negative); Blood Urine Negative (Negative); Glucose Urine UA Negative (Normal); Ketones Urine Negative (Negative); Leukocyte Esterase Urine 1+ (Negative); Nitrate Urine Positive (Negative); Protein Urine Trace (Negative); Specific Gravity, Urine 1.007 (1.005-1.030); Urine Appearance Clear (CLEAR); Urine Color Yellow (Yellow); pH Urine 5.5 (5-7)
[2024-02-05 19:34] LABS: Bacteria Urine 4+ /hpf; Hyaline Casts Urine 1.65 /lpf; RBC Urine 0-2 /hpf (0-2); Squamous Epithelial Cell Urine 0-5 /hpf (0-5)
[2024-02-05 19:51] LABS: Add Urine Culture? Yes
[2024-02-05] MEDS: cefdinir 300 MG CAPSULE PO (21:18)
[2024-02-05 22:47] VITALS: BP 122/90; PULSE 70; RESP 16; O2SAT 95
== END 2024-02-05 22:48 | disposition home or self-care (01) ==
PROVIDERS: Physician Assistant; Emergency Provider Physician Assistant; PCP Family Medicine
DX: M25.562 Pain in left knee (principal); I10 Essential (primary) hypertension; Z87.891 Personal history of nicotine dependence
CPT/HCPCS: 81003; 81015; 87077; 87086; 87186; 93971; 99284

== ENCOUNTER → 2024-02-13 09:19 | Outpatient (BNVA) | payer MEDICARE, MEDICAID, SELFPAY | PROVIDERS: PCP Family Medicine; Visit Provider Orthopaedic Surgery | DX: M25.552 Pain in left hip (principal); S72.142A Displaced intertrochanteric fracture of left femur, initial encounter for closed fracture; X58.XXXA Exposure to other specified factors, initial encounter | CPT/HCPCS: 73502; 99024 ==

== ENCOUNTER → 2024-03-26 08:35 | Outpatient (BNVA) | payer MEDICARE, MEDICAID, SELFPAY | PROVIDERS: PCP Family Medicine; Visit Provider Orthopaedic Surgery | DX: X58.XXXA Exposure to other specified factors, initial encounter; S72.142A Displaced intertrochanteric fracture of left femur, initial encounter for closed fracture | CPT/HCPCS: 73502; 99024 ==

== ENCOUNTER 2024-04-12 12:56 | Outpatient (RCR) | payer MEDICARE, MEDICAID, SELFPAY | END 2024-04-27 23:59 | disposition home or self-care (01) | LOC: SPT 12:56 | PROVIDERS: PCP Family Medicine; Visit Provider Family Medicine | DX: M54.2 Cervicalgia (principal); G89.29 Other chronic pain | CPT/HCPCS: 97110; 97161 ==

== ENCOUNTER 2024-04-28 06:00 | Outpatient (RCR) | payer MEDICARE, MEDICAID, SELFPAY | END 2024-05-28 23:59 | disposition home or self-care (01) | LOC: SPT 06:00 | PROVIDERS: PCP Family Medicine; Visit Provider Family Medicine | DX: M54.2 Cervicalgia (principal); G89.29 Other chronic pain | CPT/HCPCS: 97110; 97116; 97164 ==

== ENCOUNTER → 2024-05-01 09:16 | Outpatient (BNVA) | payer MEDICARE, MEDICAID, SELFPAY | PROVIDERS: PCP Family Medicine; Visit Provider Family Medicine | DX: I10 Essential (primary) hypertension (principal); N18.30 Chronic kidney disease, stage 3 unspecified; N13.9 Obstructive and reflux uropathy, unspecified; D50.0 Iron deficiency anemia secondary to blood loss (chronic); N52.9 Male erectile dysfunction, unspecified | CPT/HCPCS: 80048; 82607; 83540; 85025 ==

== ENCOUNTER → 2024-05-07 08:03 | Outpatient (BNVA) | payer MEDICARE, MEDICAID, SELFPAY | PROVIDERS: PCP Family Medicine; Visit Provider Orthopaedic Surgery | DX: S72.002A Fracture of unspecified part of neck of left femur, initial encounter for closed fracture (principal); X58.XXXA Exposure to other specified factors, initial encounter | CPT/HCPCS: 73502; 99024 ==

== ENCOUNTER 2024-05-29 06:00 | Outpatient (RCR) | payer MEDICARE, MEDICAID, SELFPAY | END 2024-06-28 23:59 | disposition home or self-care (01) | LOC: SPT 06:00 | PROVIDERS: PCP Family Medicine; Visit Provider Family Medicine | DX: M54.2 Cervicalgia (principal); G89.29 Other chronic pain | CPT/HCPCS: 97110; 97164 ==

== ENCOUNTER → 2024-06-28 13:02 | Outpatient (BNVA) | payer MEDICARE, MEDICAID, SELFPAY | PROVIDERS: PCP Family Medicine | DX: R39.9 Unspecified symptoms and signs involving the genitourinary system (principal); N39.0 Urinary tract infection, site not specified; R31.9 Hematuria, unspecified | CPT/HCPCS: 81000; 81003; 87086 ==

== ENCOUNTER 2024-06-29 06:00 | Outpatient (RCR) | payer MEDICARE, MEDICAID, SELFPAY | END 2024-07-26 23:59 | disposition home or self-care (01) | LOC: SPT 06:00 | PROVIDERS: PCP Family Medicine; Visit Provider Family Medicine | DX: M54.2 Cervicalgia (principal); G89.29 Other chronic pain | CPT/HCPCS: 97110; 97116 ==

== ENCOUNTER 2024-07-27 06:00 | Outpatient (RCR) | payer MEDICARE, MEDICAID, SELFPAY | END 2024-08-26 23:59 | disposition home or self-care (01) | LOC: SPT 06:00 | PROVIDERS: PCP Family Medicine; Visit Provider Family Medicine | DX: M54.2 Cervicalgia (principal); G89.29 Other chronic pain | CPT/HCPCS: 97110; 97164 ==

== ENCOUNTER 2024-08-27 06:00 | Outpatient (RCR) | payer MEDICARE, MEDICAID, SELFPAY | END 2024-09-06 08:26 | disposition home or self-care (01) | LOC: SPT 06:00 | PROVIDERS: PCP Family Medicine; Visit Provider Family Medicine | DX: M54.2 Cervicalgia (principal); G89.29 Other chronic pain | CPT/HCPCS: 97110 ==

== ENCOUNTER → 2025-02-10 09:02 | Outpatient (BNVA) | payer MEDICARE, MEDICAID, SELFPAY | PROVIDERS: PCP Family Medicine; Visit Provider Family Medicine | DX: I10 Essential (primary) hypertension (principal); R73.01 Impaired fasting glucose; E87.1 Hypo-osmolality and hyponatremia; N18.30 Chronic kidney disease, stage 3 unspecified | CPT/HCPCS: 80048; 83036; 85025 ==